=== PATIENT | male | born 1970 | race Caucasian/White ===

== ENCOUNTER 2019-05-23 02:05 | Inpatient (IN) | payer OTHER ==
[2019-05-23] MEDS ORDERED: ALBUTEROL SO4 2.5/IPRATROPIUM 0.5 INH SOL 3 ML VIAL.NEB. NEB ONE ×5 (02:09→19:00)
[2019-05-23] MEDS ORDERED: PROPOFOL 1,000,000 MCG/100 ML VIAL ONE ×2 (02:54→22:20)
[2019-05-23] MEDS: ALBUTEROL SO4 2.5/IPRATROPIUM 0.5 INH SOL 3 ML VIAL.NEB. NEB SCH ×11 (03:00→20:30)
[2019-05-23] MEDS: PROPOFOL 1,000,000 MCG/100 ML VIAL IVPB SCH ×5 (03:00→22:26)
--- NOTE | 2019-05-23 03:03 | PDOC ---
History of Present Illness - General Chief Complaint: Asthma Stated Complaint: ASTHMA Time Seen by Provider: 05/23/19 02:07 History Source: Patient Exam Limitations: No Limitations - History of Present Illness Initial Comments: 05/23/19 02:58 This is a 49-year-old male who comes in complaining of severe respiratory difficulty. Patient walked in with his . Patient's said that he has been having difficulty breathing for the last couple of hours and it got worse so she brought him in. Patient here in the emergency room was unable to speak in full sentences and very diaphoretic. Patient does have a history of asthma and took his inhaler prior to leaving the house. Allergies: as per nursing notes Past Medical History: none Social history: Lives with family. No smoking. No alcohol. No illicit drugs. Surgical history: None General: No fevers or chills, no weakness, no weight loss HEENT: No change in vision. No sore throat,. No ear pain CardioVascular: no chest discomfort. No shortness of breath Respiratory: Difficulty breathing Gastrointestinal: no nausea, vomiting, diarrhea or constipation, No rectal bleeding Genitourinary: No dysuria, hematuria, or frequency Musculoskeletal: No joint or muscle pain or swelling Neurologic: No headache, vertigo, dizziness or loss of consciousness Psychiatric: nor depression Skin: No rashes or easy bruising Endocrine: no increased thirst or abnormal weight change Allergic: no skin or latex allergy All other systems reviewed and normal Exam: General: Well-nourished well-developed individual, severe respiratory distress HEENT: Throat: Normal, tonsils normal, no erythema or exudate Neck: Supple, no meningeal signs, no lymphadenopathy Eyes::Pupils equal reactive and round, extraocular motion intact Chest: Nontender to palpation Cardiac: S1-S2 normal, regular rate and rhythm, no murmurs rubs or gallops Respiratory: Marked decreased breath sounds bilateral with very poor air entry Abdomen: Soft, nondistended, normal bowel sounds, there is no tenderness on palpation diffusely Extremities: Warm, dry, no cyanosis, clubbing, or edema Skin: No rashes Neuro: Alert and oriented x3, CN II - XII intact, nonfocal exam with normal strength, normal sensation, normal reflexes, normal gait, Psych: Normal mood and affect Assessment and plan: This is a 49-year-old male with severe respiratory distress impending respiratory failure who arrived via private vehicle to in the emergency room. On arrival patient's O2 sat was in the 40s patient put on 100% nonrebreather and DuoNeb started however patient was lethargic and in severe enough respiratory distress that the decision to intubate him was made. Patient was given a gram of mag sulfate and an additional intubation without any medication was attempted however it was difficult to pass the tube even though patient was fairly cooperative. The initial tube was removed as it was uncertain that it was in the airway. Patient was reintubated with ketamine adjunct and tube was passed successfully into the airway with positive end- tidal CO2 and capnometry. Patient maintained a sat of 98 - 99% post intubation on the vent. Once patient was intubated duo nebs were started and patient remained with O2 sats in the high 90s. Patient will be transferred to [facility] ICU for further management Past History - Past Medical History Allergies/Adverse Reactions: Allergies Allergy/AdvReac Type Severity Reaction Status Date / Time No Known Allergies Allergy Verified 07/16/11 12:34 Home Medications: Ambulatory Orders Alprazolam [Xanax] 0 mg PO PRN PRN 03/28/13 Cetirizine HCl [Zyrtec -] 10 mg PO PRN PRN 03/28/13 Naproxen [Naprosyn] 500 mg PO BID PRN #20 tablet 03/28/13 Simvastatin [Zocor -] 0 mg PO HS 03/28/13 Albuterol Sulfate [Proair Hfa] 8.5 gm IH PRN PRN 05/23/19 Duloxetine HCl [Cymbalta -] 60 mg PO DAILY 05/23/19 Fluticasone/Salmeterol [Advair 250-50 Diskus] 1 each IH BID 05/23/19 Montelukast Na [Singulair -] 10 mg PO HS 05/23/19 Simvastatin 40 mg PO DAILY 05/23/19 Hypercholesterolemia: Yes - Surgical History Abdominal Surgery: Yes (AP) - Psycho Social/Smoking Cessation Hx Smoking Status: No Smoking History: Unknown if ever smoked Number of Cigarettes Smoked Daily: 0 Information on smoking cessation initiated: No *Physical Exam - Vital Signs Last Vital Signs Temp Pulse Resp BP Pulse Ox 107 H 24 H 182/105 H 42 L 05/23/19 02:06 05/23/19 02:06 05/23/19 02:06 05/23/19 02:06 ED Treatment Course - LABORATORY CBC & Chemistry Diagram: 05/23/19 02:15 05/23/19 02:15 Medical Decision Making - Critical Care Time Total Critical Care Time (minutes): 90 Critical Care Statement: The care of this patient involved high complexity decision making to prevent further life threatening deterioration of the patient 's condition and/or to evaluate & treat vital organ system(s) failure or risk of failure. Discharge - Discharge Information Problems reviewed: Yes Clinical Impression/Diagnosis: Respiratory failure Condition: Critical - Admission Yes - Follow up/Referral - Patient Discharge Instructions - Post Discharge Activity
[2019-05-23] MEDS ORDERED: KETAMINE HCL 200 MG/20 ML VIAL IVPUSH ONE (03:20)
[2019-05-23] MEDS ORDERED: methylPREDNISolone NA SUCC 125 MG/2 ML VIAL IVPUSH ONE ×2 (03:26→16:19)
[2019-05-23 03:49] LABS: BASO % 0.4 % (0-2.0); EOS % 3.8 % (0-4.5); HEMATOCRIT 45.6 % (35.4-49); HEMOGLOBIN 14.6 GM/dL (11.7-16.9); LYMPH % 19.1 % (8-40); MCH 30.5 pg (25.7-33.7); MCHC 32.1 g/dl (32.0-35.9); MEAN CELL VOLUME 95.2 fl (80-96); MEAN PLT VOLUME 8.2 fl (7.5-11.1); MONO % 9.9 % (3.8-10.2); NEUT % 66.8 % (42.8-82.8); PLATELET COUNT 488 K/MM3 (134-434); RBC 4.79 M/mm3 (4.00-5.60); RDW 13.8 % (11.9-15.9); WHITE BLOOD COUNT 23.6 K/mm3 (4.0-10.0)
[2019-05-23] MEDS ORDERED: MIDAZOLAM HCL 2 MG/2 ML SINGLE DOSE VIAL ONE ×2 (04:05→09:21)
[2019-05-23] MEDS ORDERED: MIDAZOLAM HCL 2 MG/2 ML SINGLE DOSE VIAL IVPUSH ONE ×2 (04:10→10:27)
[2019-05-23] MEDS ORDERED: MAGNESIUM SULF 50% (8.12 MEQ/2 ML-1 GM VIAL) IVPB ONE (04:10)
[2019-05-23 04:23] LABS: ALBUMIN 4.5 g/dl (3.4-5.0); ALK PHOS 85 U/L (45-117); ANION GAP 5 MMOL/L (8-16); BILIRUBIN,TOTAL 0.6 mg/dL (0.2-1); BLOOD UREA NITROGEN 14.5 mg/dL (7-18); CALCIUM 8.8 mg/dL (8.5-10.1); CHLORIDE 106 mmol/L (98-107); CO2 29 mmol/L (21-32); CREATININE 1.1 mg/dL (0.55-1.3); GLUCOSE,RANDOM 161 mg/dL (74-106); POTASSIUM 4.4 mmol/L (3.5-5.1); SGOT/AST 25 U/L (15-37); SGPT/ALT 34 U/L (13-61); SODIUM 140 mmol/L (136-145); TOT PROT 7.4 g/dl (6.4-8.2)
[2019-05-23] MEDS ORDERED: PIPERACILLIN/TAZOB 3.375 GM 3.375 GM in DEXTROSE 5%-WATER - 50 ML IVPB SCH ×2 (05:00→05:30)
[2019-05-23] MEDS ORDERED: FENTANYL INJECTION 500 MCG in DEXTROSE 5%-WATER - 90 ML IVPB SCH (05:00)
[2019-05-23 05:17] LABS: CARBOXYHEMOGLOBIN < 0.5 % (0-2)
[2019-05-23 05:18] LABS: ARTERIAL BLOOD GAS BASE EXCESS -6.4 meq/l (-2-2); ARTERIAL BLOOD GAS PO2 482 mmHg (80-100)
[2019-05-23 05:19] LABS: ALLENS TEST POSITIVE
[2019-05-23] MEDS ORDERED: fentaNYL CITRATE 250 MCG/5 ML VIAL ONE (05:22)
--- NOTE | 2019-05-23 05:26 | CONSULT ---
Consultation: REQUESTING PROVIDER: Dr. Strickland CONSULT REQUEST: We have been asked to medically evaluate this patient for Acute Hypoxic Respiratory Failure. HISTORY OF PRESENT ILLNESS: Pt. is a 49 y.o M w/ PMHx. of Asthma (on Advair, Proair, and Singulair at home), HLD and Anxiety presented for shortness of breath that was worsening over the last few hours prior to [place] ER arrival. History provided by chart review and , Garima ([phone]), at bedside in the ICU as Pt. arrived intubated and sedated. Pt. had been having dyspnea at rest at home around 10 pm and took his home Ventolin inhaler to minimal effect. Pt. went to sleep but awoke his around 1 am because of persistent dyspnea and attempted to use his home nebulizer which did not improve his symptoms and went (walked in) to [place] ER at the insistence of his . At [place] Pt. arrived saturating to 42% and decision to intubate was made after failed trial of non-rebreather and duonebs. Pt. was given Solumedrol 125mg. Pt. failed first awake intubation attempt (unclear if tube was in the airway? difficult airway?), which was followed by successful second attempt after administration of Ketamine. ABG was not performed. Pt. was then transferred to ICU prior to having labs uploaded and prior to uploading of CXR, as ER MD stated labs were not able to be read at [place]. Pt. arrived tachycardic and tachypneic on mechanical ventilation saturating at 99%. OG tube and Lopes was placed on arrival to ER as Pt. vomited on arrival. Per discussion with , Pt. has never been intubated in the past. Pt. has remote social smoking history in the past but does not smoked cigarettes currently. Pt. smokes Marijuana Daily (unable to quantify but states Pt. did smoke today). Pt. last consumed cocaine a few weeks prior at a concert. 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 Per Pt. also had an URI a couple weeks ago associated with fever and chills but denies taking any antibiotics for the infection or recently. Per Pt. was not having any symptoms of fever, chills , nausea, vomiting, diarrhea, constipation, chest pain, sore throat or any other concerning symptoms prior to onset of shortness of breath. Pt. is in between PCPs as his former PCP, Dr. Granados recently switched practices. Pt. also has not followed up with a [employer] recently. Pt. has not required increased usage of his Ventolin inhaler or Nebulizer over the last 6 months but per she is unable to say how frequently Pt. uses his Ventolin inhaler. REVIEW OF SYSTEMS: Unable to obtain PHYSICAL EXAMINATION Vital Signs - 24 hr 05/23/19 05/23/19 05/23/19 02:06 02:30 02:50 Pulse Rate 107 H Pulse Rate [ 64 98 H Apical] Respiratory 24 H Rate Blood Pressure 182/105 H Blood Pressure 215/127 H 174/112 H [Right Arm] O2 Sat by Pulse 42 L 96 98 Oximetry (%) 05/23/19 05/23/19 05/23/19 03:00 03:15 03:23 Pulse Rate 108 H Pulse Rate [ 106 H 109 H Apical] Respiratory 24 H 21 H 20 Rate Blood Pressure Blood Pressure 139/88 153/93 [Right Arm] O2 Sat by Pulse 98 93 L 95 Oximetry (%) 05/23/19 05/23/19 05/23/19 03:30 03:40 03:50 Pulse Rate Pulse Rate [ 105 H 106 H 108 H Apical] Respiratory 27 H 18 30 H Rate Blood Pressure Blood Pressure 127/81 116/75 123/75 [Right Arm] O2 Sat by Pulse 100 100 100 Oximetry (%) 05/23/19 04:48 Pulse Rate Pulse Rate [ Apical] Respiratory 32 H Rate Blood Pressure Blood Pressure [Right Arm] O2 Sat by Pulse Oximetry (%) GENERAL: Sedated in respiratory distress HEAD: Normal with no signs of trauma. EYES: Pupils equal, round and reactive to light, extraocular movements intact, sclera anicteric, conjunctiva clear. EARS, NOSE, THROAT: Ears normal, nares patent, oropharynx clear without exudates. Moist mucous membranes. LUNGS: Decreased breath sounds on mechanical ventilation, tachypneic HEART: Tachypneic, regular rhythm, normal S1 and S2 without murmur ABDOMEN: Soft, not distended, normoactive bowel sounds, UPPER EXTREMITIES: 2+ radial pulses, warm, well-perfused. No cyanosis. No clubbing. Cap refill <2 seconds. No peripheral edema. LOWER EXTREMITIES: 2+ dorsal pedal pulses, warm, well-perfused. No calf tenderness. No peripheral edema. NEUROLOGICAL: Sedated PSYCHIATRIC: Sedated SKIN: Warm, diaphoretic, normal turgor Laboratory Results - last 24 hr 05/23/19 05/23/19 05/23/19 02:15 02:15 02:15 WBC 23.6 H RBC 4.79 Hgb 14.6 Hct 45.6 MCV 95.2 MCH 30.5 MCHC 32.1 RDW 13.8 Plt Count 488 H MPV 8.2 Absolute Neuts (auto) 15.7 H Neutrophils % 66.8 Lymphocytes % 19.1 Monocytes % 9.9 Eosinophils % 3.8 Basophils % 0.4 Nucleated RBC % 0 Sodium 140 Potassium 4.4 Chloride 106 Carbon Dioxide 29 Anion Gap 5 L BUN 14.5 Creatinine 1.1 Est GFR (CKD-EPI)AfAm 90.24 Est GFR (CKD-EPI)NonAf 77.86 Random Glucose 161 H Lactic Acid 1.8 Calcium 8.8 Total Bilirubin 0.6 AST 25 ALT 34 Alkaline Phosphatase 85 Creatine Kinase 208 Creatine Kinase Index 1.9 CK-MB (CK-2) 4.1 H Troponin I < 0.02 Total Protein 7.4 Albumin 4.5 Active Medications Home Medications Medication Instructions Recorded Alprazolam [Xanax] 0 mg PO PRN PRN 03/28/13 Cetirizine HCl [Zyrtec -] 10 mg PO PRN PRN 03/28/13 Naproxen [Naprosyn] 500 mg PO BID PRN #20 tablet 03/28/13 Simvastatin [Zocor -] 0 mg PO HS 03/28/13 Albuterol Sulfate [Proair Hfa] 8.5 gm IH PRN PRN 05/23/19 Duloxetine HCl [Cymbalta -] 60 mg PO DAILY 05/23/19 Fluticasone/Salmeterol [Advair 1 each IH BID 05/23/19 250-50 Diskus] Montelukast Na [Singulair -] 10 mg PO HS 05/23/19 Simvastatin 40 mg PO DAILY 05/23/19 ASSESSMENT/PLAN: Pt. is a 49 y.o M w/ PMHx. of Asthma (on Advair, Proair, and Singulair at home) , HLD and Anxiety presented for shortness of breath that was worsening over the last few hours prior to [place] ER arrival. History provided by chart review and , Garima ([phone]), at bedside in the ICU as Pt. arrived intubated and sedated. #Pulmonology ABG on arrival is pH: 7.11, pCO2: 85 on arrival, f/u Rpt. ABG received Solumedrol 125mg @ [place] Started Solumedrol 40mg Q8H started fentanyl gtt started versed gtt c/w propofol gtt- maximum dose Pt. has Hx. of chronic Marijuana use, studies have shown that these Pt.s require as much as 400% more propofol and Pt.s who do not use Marijuana Duonebs RQID standing Pt. evaluated by anaethesiology with glidoscope to confirm placement of ET tube , given rocuroroium, visualized "tight airways." On suctioning "large" clot was removed from ET tube, respirations improved after c/w Zosyn for suspected aspiration PNA f/u BCx. f/u Influenza and RSV swab f/u Rpt. CXR #Neurology sedated on Propofol gtt At baseline Pt. has no focal deficits and has full ADLs and IADLs #Cardiology denies any PMHx. or Family Hx. of any chronic medical conditions will continue cardiac monitoring while admitted to ICU #Gastroenterology Emesis prior to initial OG Tube placement OG Tube replaced after anesthisology assessment will continue If Pt. requires prolonged intubation and prolonged steroids consider starting Protonix after 48 hours #FEN no IVF, will re-evaluate in the AM monitor electrolytes replete as needed, received 1gm MgSulfate @ [place] NPO #DVT Ppx Hep SQ TID Dispo: We will continue to follow the patient. Thank you for this consultative opportunity. Visit type - Emergency Visit Emergency Visit: Yes ED Registration Date: 05/23/19 Care time: The patient presented to the Emergency Department on the above date and was hospitalized for further evaluation of their emergent condition. - New Patient This patient is new to me today: Yes Date on this admission: 05/25/19 - Critical Care Critical Care patient: Yes Total Critical Care Time (in minutes): 55 Critical Care Statement: The care of this patient involved high complexity decision making to prevent further life threatening deterioration of the patient 's condition and/or to evaluate & treat vital organ system(s) failure or risk of failure. ATTENDING PHYSICIAN STATEMENT I saw and evaluated the patient. I reviewed the resident's note and discussed the case with the resident. I agree with the resident's findings and plan as documented. SUBJECTIVE: OBJECTIVE: ASSESSMENT AND PLAN:
[2019-05-23 05:38] LABS: ARTERIAL BLOOD GAS PCO2 85.8 mmHg (35-45); ARTERIAL BLOOD GAS pH 7.11 (7.35-7.45)
[2019-05-23] MEDS ORDERED: RAPID SEQUENCE INTUBATION KIT NR ONE (05:45)
[2019-05-23] MEDS ORDERED: ALBUTEROL SO4 0.042% IH SOL 1.25 MG/3 ML VIAL.NEB NEB PRN (06:03)
--- NOTE | 2019-05-23 06:05 | PN ---
Progress Note (short form) - Note Progress Note: Called to evaluate ICU pt with suspected dislodged ETT. Pt has a history of asthma, s/p intubation at [facility]. CO2 capnometer shows steady tracing, at 32; pt is sedated but not given muscle relaxant., and is exhibiting agonal respirations over the ventilator. Glidescope was used to visualize ETT- ETT in correct position, no adjustment was needed. Muscle relaxant given; also advised resident to write for nebulized albuterol, as breath sounds are distant and capnogram waveform suggests severe asthma exacerbation.
--- NOTE | 2019-05-23 07:41 | HP ---
CHIEF COMPLAINT: Shortness of breath PCP: HISTORY OF PRESENT ILLNESS: Information obtained from previous medical records as patient currently intubated and sedated. Pt is a 49 y/o M with a significant past medical history of HLD, Anxiety, and Asthma (on Advair, Proair, and Singulair at home) who initially presented to [facility] due to shortness of breath. Pt reportedly was sleeping when he abruptly became short of breath and was told to go to the ER at the behest of his . In the ER, pt was noted to desaturate on room air to 42%; pt was subsequently placed on a nonrebreather and administered duonebs. This was unsuccessful and pt was subsequently intubated in the ER. Pt was transferred to our [facility] ICU for continued care. Pt has never been intubated in the past. Per medical records, pt is an everyday marijuana smoker; unclear if vapes. Pt reportedly had a URI-like illness a few weeks ago but did not receive any antibiotics. PMH as above SocialHx- Everyday marijuana smoker, Cocaine use ER course was notable for: (1) Administered Ketamine and intubated (2) Pt. was given Solumedrol 125mg Allergies No Known Allergies Allergy (Verified 07/16/11 12:34) HOME MEDICATIONS: Home Medications Medication Instructions Recorded Alprazolam [Xanax] 0 mg PO PRN PRN 03/28/13 Cetirizine HCl [Zyrtec -] 10 mg PO PRN PRN 03/28/13 Naproxen [Naprosyn] 500 mg PO BID PRN #20 tablet 03/28/13 Simvastatin [Zocor -] 0 mg PO HS 03/28/13 Albuterol Sulfate [Proair Hfa] 8.5 gm IH PRN PRN 05/23/19 Duloxetine HCl [Cymbalta -] 60 mg PO DAILY 05/23/19 Fluticasone/Salmeterol [Advair 1 each IH BID 05/23/19 250-50 Diskus] Montelukast Na [Singulair -] 10 mg PO HS 05/23/19 Simvastatin 40 mg PO DAILY 05/23/19 REVIEW OF SYSTEMS Unable to obtain as pt intubated and sedated PHYSICAL EXAMINATION Vital Signs - 24 hr 05/23/19 05/23/19 05/23/19 02:06 02:30 02:50 Pulse Rate 107 H Pulse Rate [ 64 98 H Apical] Respiratory 24 H Rate Blood Pressure 182/105 H Blood Pressure 215/127 H 174/112 H [Right Arm] O2 Sat by Pulse 42 L 96 98 Oximetry (%) 05/23/19 05/23/19 05/23/19 03:00 03:15 03:23 Pulse Rate 108 H Pulse Rate [ 106 H 109 H Apical] Respiratory 24 H 21 H 20 Rate Blood Pressure Blood Pressure 139/88 153/93 [Right Arm] O2 Sat by Pulse 98 93 L 95 Oximetry (%) 05/23/19 05/23/19 05/23/19 03:30 03:40 03:50 Pulse Rate Pulse Rate [ 105 H 106 H 108 H Apical] Respiratory 27 H 18 30 H Rate Blood Pressure Blood Pressure 127/81 116/75 123/75 [Right Arm] O2 Sat by Pulse 100 100 100 Oximetry (%) 05/23/19 05/23/19 04:48 06:44 Pulse Rate Pulse Rate [ Apical] Respiratory 32 H 18 Rate Blood Pressure Blood Pressure [Right Arm] O2 Sat by Pulse Oximetry (%) GENERAL: Intubated and sedated HEAD: AT/NC. EYES: Sclera Clear, pupils reactive EARS, NOSE, THROAT: ET tube in place. OG tube as well. NECK: Normal range of motion, supple without lymphadenopathy, JVD, or masses. LUNGS: Decreased breath sounds throughout. Poor air entry. Labored breathing HEART: RRR S1S2 ABDOMEN: Soft, NDNT UPPER EXTREMITIES: 2+ pulses, warm, well-perfused. No cyanosis. No clubbing. No peripheral edema. LOWER EXTREMITIES: No CCE NEUROLOGICAL: Sedated SKIN: Moist. Laboratory Results - last 24 hr 05/23/19 05/23/19 05/23/19 02:15 02:15 02:15 WBC 23.6 H RBC 4.79 Hgb 14.6 Hct 45.6 MCV 95.2 MCH 30.5 MCHC 32.1 RDW 13.8 Plt Count 488 H MPV 8.2 Absolute Neuts (auto) 15.7 H Neutrophils % 66.8 Lymphocytes % 19.1 Monocytes % 9.9 Eosinophils % 3.8 Basophils % 0.4 Nucleated RBC % 0 Anticoagulation Therapy Puncture Site ABG pH ABG pCO2 at Pt Temp ABG pO2 at Pt Temp ABG HCO3 ABG O2 Sat (Measured) ABG O2 Content ABG Base Excess Lebron Test Carboxyhemoglobin Methemoglobin O2 Delivery Device Oxygen Flow Rate Vent Mode Vent Rate Mechanical Rate PEEP Pressure Support Vent Sodium 140 Potassium 4.4 Chloride 106 Carbon Dioxide 29 Anion Gap 5 L BUN 14.5 Creatinine 1.1 Est GFR (CKD-EPI)AfAm 90.24 Est GFR (CKD-EPI)NonAf 77.86 POC Glucometer Random Glucose 161 H Lactic Acid 1.8 Calcium 8.8 Total Bilirubin 0.6 AST 25 ALT 34 Alkaline Phosphatase 85 Creatine Kinase 208 Creatine Kinase Index 1.9 CK-MB (CK-2) 4.1 H Troponin I < 0.02 Total Protein 7.4 Albumin 4.5 05/23/19 05/23/19 05/23/19 04:11 04:37 04:45 WBC RBC Hgb Hct MCV MCH MCHC RDW Plt Count MPV Absolute Neuts (auto) Neutrophils % Lymphocytes % Monocytes % Eosinophils % Basophils % Nucleated RBC % Anticoagulation Therapy No Result Required. Puncture Site Right radial ABG pH 7.11 L* ABG pCO2 at Pt Temp 85.8 H* ABG pO2 at Pt Temp 482 H ABG HCO3 25.7 ABG O2 Sat (Measured) No Result Required. ABG O2 Content No Result Required. ABG Base Excess -6.4 L Lebron Test Positive Carboxyhemoglobin < 0.5 Methemoglobin 1.3 O2 Delivery Device Vent Oxygen Flow Rate 100% Vent Mode No Result Required. Vent Rate 18 Mechanical Rate No Result Required. PEEP 5.0 Pressure Support Vent 500 Sodium Potassium Chloride Carbon Dioxide Anion Gap BUN Creatinine Est GFR (CKD-EPI)AfAm Est GFR (CKD-EPI)NonAf POC Glucometer 194 Random Glucose Lactic Acid Calcium Total Bilirubin AST ALT Alkaline Phosphatase Creatine Kinase Creatine Kinase Index CK-MB (CK-2) Troponin I Total Protein Albumin ASSESSMENT/PLAN: Pt is a 49 y/o M with a significant past medical history of HLD, Anxiety, and Asthma who initially presented to [facility] due to shortness of breath. # Acute Hypoxic Hypercapneic Respiratory Failure -Pt intubated in [place] ER. -Currently on Ventilator. Sedated with propofol and fentanyl. -AB.11, pCO2: 85 on arrival, repeat ABG no significant change -Tidal Volume increased to 600 -Fio2 50%. Do not want to increase too much as previous o2 level 482-want to avoid oxygen toxicity. -will increase Solu-Medrol to 60Q6 from 40 Q8. -duoneb 1 amp q4H Kimberlyn. -Dr Macdonald on board. Appreciate recs. -Zosyn for suspected aspiration PNA. Will also placed on Vancomycin empirically as WBC 23k. -f/u BCx. -f/u Influenza and RSV swab -f/u Rpt. CXR #FEN -No standing fluids -Monitor Electrolytes -NPO #DVT ppx -HEPSQTID #Dispo: -ICU Visit type - Emergency Visit Emergency Visit: Yes ED Registration Date: 05/23/19 Care time: The patient presented to the Emergency Department on the above date and was hospitalized for further evaluation of their emergent condition. - New Patient This patient is new to me today: Yes Date on this admission: 05/23/19 - Critical Care Critical Care patient: Yes Total Critical Care Time (in minutes): 35 Critical Care Statement: The care of this patient involved high complexity decision making to prevent further life threatening deterioration of the patient 's condition and/or to evaluate & treat vital organ system(s) failure or risk of failure. ATTENDING PHYSICIAN STATEMENT I saw and evaluated the patient. I reviewed the resident's note and discussed the case with the resident. I agree with the resident's findings and plan as documented. SUBJECTIVE: OBJECTIVE: ASSESSMENT AND PLAN:
--- NOTE | 2019-05-23 07:46 | PN ---
Teaching Attending Note Name of Resident: Elia Mei ATTENDING PHYSICIAN STATEMENT I saw and evaluated the patient. I reviewed the resident's note and discussed the case with the resident. I agree with the resident's findings and plan as documented. Patient was seen by the night resident overnight in ICU Patient came under my service at 7:30am SUBJECTIVE: Patient is intubated in ICU. Hx is taken from the chart. Patient is a 49 yo male with PMHx of Asthma (on Advair, Proair, and Singulair at home), HLD and Anxiety presented for shortness of breath with worsening symptoms over the last few hours prior to [facility] arrival where patient was intubated and was send to the [facility] [place]. History is taken from chart , and the resident who spoke with his , Garima ([phone]). Pt. arrived intubated and sedated. Pt. had been having dyspnea at rest at home around 10 pm and took his home Ventolin inhaler to minimal effect. Pt. went to sleep but awoke his around 1 am because of persistent dyspnea and attempted to use his home nebulizer which did not improve his symptoms and went (walked in) to [facility] at the insistence of his . At [facility] Pt. arrived saturating to 42% and decision to intubate was made after failed trial of non-rebreather and duonebs. Pt. was given Solumedrol 125mg. As per hx patient vomited on arrival. Pt. has never been intubated in the past. Pt. has remote social smoking history in the past, currently. Pt. smokes Marijuana Daily (unable to quantify but states Pt. did smoke today). Pt. last consumed cocaine a few weeks prior at a concert. 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 Per Pt. also had an URI a couple weeks ago associated with fever and chills but denies taking any antibiotics. OBJECTIVE: Vital Signs Temperature Pulse Rate 108 H 05/23/19 03:50 Respiratory Rate 18 05/23/19 06:44 Blood Pressure 123/75 05/23/19 03:50 O2 Sat by Pulse Oximetry (%) 100 05/23/19 03:50 GENERAL: The patient is intubated , sedated in moderate distress. HEAD: Normal with no signs of trauma. EYES: sclera anicteric, conjunctiva clear. reactive ENT: Ears normal, positive for E-Tube NECK: Trachea midline. intubated LUNGS:decreased air entery bl ,with labored breathing, no wheezes, no crackles. HEART: tachy, S1, S2 positive, no murmur, rub or gallop. ABDOMEN: Soft, nontender, nondistended, normoactive bowel sounds, no guarding, no rebound, no hepatosplenomegaly, no masses. EXTREMITIES: 2+ pulses, warm, well-perfused, no edema. NEUROLOGICAL: Cranial nerves II through XII grossly intact. PSYCH: unable to access, intubated sedated. SKIN: Warm, dry, normal turgor, no rashes or lesions noted CBCD WBC 23.6 K/mm3 (4.0-10.0) H 05/23/19 02:15 RBC 4.79 M/mm3 (4.00-5.60) 05/23/19 02:15 Hgb 14.6 GM/dL (11.7-16.9) 05/23/19 02:15 Hct 45.6 % (35.4-49) 05/23/19 02:15 MCV 95.2 fl (80-96) 05/23/19 02:15 MCHC 32.1 g/dl (32.0-35.9) 05/23/19 02:15 RDW 13.8 % (11.9-15.9) 05/23/19 02:15 Plt Count 488 K/MM3 (134-434) H 05/23/19 02:15 MPV 8.2 fl (7.5-11.1) 05/23/19 02:15 CMP Sodium 140 mmol/L (136-145) 05/23/19 02:15 Potassium 4.4 mmol/L (3.5-5.1) 05/23/19 02:15 Chloride 106 mmol/L (98-107) 05/23/19 02:15 Carbon Dioxide 29 mmol/L (21-32) 05/23/19 02:15 Anion Gap 5 MMOL/L (8-16) L 05/23/19 02:15 BUN 14.5 mg/dL (7-18) 05/23/19 02:15 Creatinine 1.1 mg/dL (0.55-1.3) 05/23/19 02:15 Random Glucose 161 mg/dL (74-106) H 05/23/19 02:15 Calcium 8.8 mg/dL (8.5-10.1) 05/23/19 02:15 Total Bilirubin 0.6 mg/dL (0.2-1) 05/23/19 02:15 AST 25 U/L (15-37) 05/23/19 02:15 ALT 34 U/L (13-61) 05/23/19 02:15 Alkaline Phosphatase 85 U/L (45-117) 05/23/19 02:15 Total Protein 7.4 g/dl (6.4-8.2) 05/23/19 02:15 Albumin 4.5 g/dl (3.4-5.0) 05/23/19 02:15 CARDIAC ENZYMES Creatine Kinase 208 U/L (26-308) 05/23/19 02:15 Troponin I < 0.02 ng/ml (0.00-0.05) 05/23/19 02:15 Laboratory Tests 05/23/19 05/23/19 05/23/19 04:45 05:00 07:48 ABG pH 7.11 L* 7.14 L* ABG pCO2 at Pt Temp 85.8 H* 78.4 H* ABG pO2 at Pt Temp 482 H 79 L ABG HCO3 25.7 25.7 Opiates Screen Negative Methadone Screen Negative Barbiturate Screen Negative Phencyclidine Screen Negative Ur Amphetamines Screen Negative MDMA (Ecstasy) Screen Negative Benzodiazepines Screen Positive A* Cocaine Screen Positive A* U Marijuana (THC) Screen Positive A* CXR: nodular density/granuloma in the peripheral left lung field. mediastinum is not widened, An ET-tube is present with its tip at the level of clavicular heads, there is no sign of infiltrate or failure. The bones and soft tissues intact. ASSESSMENT AND PLAN: Patient is a 49 yo male with PMHx of Asthma , HLD and Anxiety, polysubstance abuse presented to [facility] for having severe shortness of breath s/p intubation due to having respiratory failure, patient was transferred to [facility] overnight for further care and evaluation. # Acute respiratory failure s/p intubation: Neb treatments, solu medrol 60mg iv q8, discussed with regarding the vent setting, will repeat ABG in 30mins. for management per ICU team. # Acute asthma exacerbation : intubated, sedated, nebs, solumedrol IV. #Polysubstance dependency (Marijuana and cocaine) : detox consult # Leukocytosis possible aspiration Pneumonia: Blue cx, zosyn , antigen for legienella and strep. ID consult Dr. miller DVt px: heaprin Critical care time 35min
[2019-05-23 08:06] LABS: METHADONE, UR NEGATIVE ng/ml (CUTOFF=300); OPIATES, URI NEGATIVE ng/ml (CUTOFF=300); PHENCYCLIDINE,URINE NEGATIVE ng/ml (CUTOFF=25); URINE AMPHETAMINES NEGATIVE ng/ml (CUTOFF=500); URINE BARBITURATES NEGATIVE ng/ml (CUTOFF=200)
[2019-05-23] MEDS ORDERED: ALBUTEROL SO4 2.5/IPRATROPIUM 0.5 INH SOL 3 ML VIAL.NEB. NEB PRN (08:14)
[2019-05-23 08:15] LABS: ARTERIAL BLD GAS O2 SATURATION 90.3 % (95-98); ARTERIAL BLOOD GAS BASE EXCESS -5.4 meq/l (-2-2)
[2019-05-23 08:16] LABS: ARTERIAL BLOOD GAS PO2 79 mmHg (80-100)
[2019-05-23 08:17] LABS: ALLENS TEST POSITIVE; CARBOXYHEMOGLOBIN < 0.5 % (0-2)
[2019-05-23 08:18] LABS: COCAINE, UR POSITIVE ng/ml (CUTOFF=300); URINE BENZODIAZEPINES POSITIVE ng/ml (CUTOFF=200)
[2019-05-23 08:19] LABS: ARTERIAL BLOOD GAS pH 7.14 (7.35-7.45)
[2019-05-23 08:20] LABS: MAGNESIUM 2.6 mg/dL (1.8-2.4); PHOSPHOROUS 5.8 mg/dL (2.5-4.9)
[2019-05-23 08:20] LABS: ARTERIAL BLOOD GAS PCO2 78.4 mmHg (35-45)
--- NOTE | 2019-05-23 08:25 | PN ---
Physical Exam: SUBJECTIVE: Patient seen and examined by the bedside, intubated and sedated. OBJECTIVE: Vital Signs Period Temp Pulse Resp BP Sys/Christiansen Pulse Ox Last 24 Hr 64-109 18-32 116-233/75-153 42-100 GENERAL: Intubated and sedated HEAD: Normal with no signs of trauma. EYES: SOFI EARS, NOSE, THROAT: Ears normal, nares patent, oropharynx clear without exudates. Moist mucous membranes. LUNGS: Decreased breath sounds B/L HEART: Tachypneic, regular rhythm, normal S1 and S2 without murmur ABDOMEN: Soft, not distended, normoactive bowel sounds, UPPER EXTREMITIES: 2+ radial pulses, warm, well-perfused. No cyanosis. No clubbing. Cap refill <2 seconds. No peripheral edema. LOWER EXTREMITIES: 2+ dorsal pedal pulses, warm, well-perfused. No calf tenderness. No peripheral edema. NEUROLOGICAL: Sedated PSYCHIATRIC: Sedated SKIN: Warm, diaphoretic, normal turgor CBC, BMP 05/23/19 02:15 05/23/19 02:15 Current Medications Albuterol Sulfate (Ventolin 0.042trength) -) 1 amp NEB RQID PRN PRN Reason: Dyspnea Albuterol/Ipratropium (Duoneb -) 1 amp NEB RQ4H [facility] Chlorhexidine Gluconate (Hibiclens For Decolonization -) 1 applic TP HS [facility] Heparin Sodium (Porcine) (Heparin -) 5,000 unit SQ TID [facility] Propofol (Diprivan -) 1,000,000 mcg in 100 mls @ 8.369 mls/hr IVPB TITR [facility]; Protocol Last Admin: 05/23/19 08:37 Dose: 75 mcg/kg/min, 41.844 mls/hr Midazolam HCl 100 mg/ Sodium (Chloride) 100 mls @ 1 mls/hr IVPB TITR [facility]; Protocol Azithromycin 500 mg/ Dextrose 250 mls @ 250 mls/hr IVPB DAILY [facility] Ceftriaxone Sodium (Ceftriaxone 2 Gm-D5w Bag) 2 gm in 50 mls @ 100 mls/hr IVPB DAILY [facility]; Protocol Methylprednisolone Sodium Succinate (Solu-Medrol -) 60 mg IVPUSH Q6H-IV [facility] Last Admin: 05/23/19 09:31 Dose: 60 mg Midazolam HCl (Versed -) 4 mg IVPUSH ONCE ONE Stop: 05/23/19 10:28 Midazolam HCl (Versed -) 2 mg IVPUSH RQ4H [facility] Mupirocin (Bactroban Ointment (For Decolonization) -) 1 applic NS BID [facility] Stop: 05/28/19 09:59 ASSESSMENT/PLAN: 49M PMH of Asthma (on Advair, Proair, and Singulair at home), HLD and Anxiety. Presented to [facility] 05/23 with worsening SOB despite Ventolin and Nebulizer. Was found to have O2 42%, received SoluMedrol 125mg and duonebs with no improvement , decision was made to intubate. Intubation was initially unsuccessful, but eventually successful after administration of ketamine. states that he had an URTI a couple weeks ago associated with fever and chills, but more recently has not had any fever, chills or any other symptoms. 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 #Neurology - Sedated on Propofol, Versed (switched from Fentanyl). May require additional Propofol due to Hx. of chronic Marijuana use - AOx3 at baseline with no focal deficits #Pulmonology - ABG this morning: pH 7.14, pCO2 78.4, pO2 79, HCO3 25.7 - Solumedrol 60 mg Q8, was previously on 40mg Q8, received 125mg @ [place] - Duonebs started - Evaluated by anaethesiology with glidoscope to confirm placement of ET tube, given rocuroroium, visualized "tight airways." - On suctioning "large" clot was removed from ET tube, respirations improved after - CXR: Well inflated, density in peripheral left lower lung - LE Duplex: No DVT seen #ID - WBC 23.6, afebrile - Ceftriaxone 2gm, Azythromycin 500mg for suspected pneumonia started 05/23 as per ID, received Zosyn 1x overnight - BCx, Influenza and RSV swab ordered - ID (Dr. Mott) consulted #Cardiology - denies any PMHx. or Family Hx. of any chronic medical conditions - Cardiac monitoring #GI - OGT palced - Emesis 1x prior to initial OG Tube placement #Renal - Lopes placed - UA: Protein 1+ - UTox positive for Marijuana, cocaine, benzos #FEN - Not currently on IVF - Phos 5.8 (H), Mg 2.6 (H) - NPO #Prophylaxis - Hep 5000 SQ TID - Will consider Protonix if prolonged intubation required Visit type - Emergency Visit Emergency Visit: Yes ED Registration Date: 05/23/19 Care time: The patient presented to the Emergency Department on the above date and was hospitalized for further evaluation of their emergent condition. - New Patient This patient is new to me today: Yes Date on this admission: 05/24/19 - Critical Care Critical Care patient: Yes Total Critical Care Time (in minutes): 38 Critical Care Statement: The care of this patient involved high complexity decision making to prevent further life threatening deterioration of the patient 's condition and/or to evaluate & treat vital organ system(s) failure or risk of failure. ATTENDING PHYSICIAN STATEMENT I saw and evaluated the patient. I reviewed the resident's note and discussed the case with the resident. I agree with the resident's findings and plan as documented. SUBJECTIVE: OBJECTIVE: ASSESSMENT AND PLAN:
[2019-05-23] MEDS ORDERED: DEXTROSE 5%-WATER - 50 ML IVPB ONE (09:11)
[2019-05-23] MEDS ORDERED: PIPERACILLIN/TAZOBACTAM 3.375 GM VIAL IVPB ONE (09:11)
[2019-05-23] MEDS: methylPREDNISolone NA SUCC 40 MG/1 ML VIAL IVPUSH SCH ×3 (09:31→21:24)
[2019-05-23 09:36] LABS: URINE APPEARANCE CLEAR; URINE BILIRUBIN NEGATIVE (NEGATIVE); URINE COLOR YELLOW; URINE GLUCOSE (UA) 500 mg/dl (NEGATIVE); URINE KETONE NEGATIVE (NEGATIVE)
[2019-05-23 09:37] LABS: URINE BACTERIA 0.5 /hpf (NEGATIVE); URINE LEUK ESTERASE NEGATIVE (NEGATIVE); URINE NITRITE NEGATIVE (NEGATIVE); URINE PROTEIN 1+ (NEGATIVE); URINE RBC 0.9 /hpf (0-4); URINE UROBILINOGEN 0.2 mg/dL (0.2-1.0); URINE WBC 0.8 /hpf (0-5)
[2019-05-23] MEDS ORDERED: VANCOMYCIN 1 GRAM (PRE-DOCKED) 1,000 MG/250 ML BAG IVPB ONE (10:00)
[2019-05-23] MEDS ORDERED: methylPREDNISolone NA SUCC 40 MG/1 ML VIAL IVPUSH SCH (10:00)
[2019-05-23] MEDS ORDERED: MIDAZOLAM IN 0.9 % SOD.CHLORID 1 MG/1 ML PLAST..BAG ONE (10:54)
--- NOTE | 2019-05-23 10:57 | PN ---
Progress Note (short form) - Note Progress Note: ID CONSULT DICTATED ACUTE RESPIRATORY FAILURE ACUTE EXACERBATION ASTHMA ? PNEUMONIA POLYSUBSTANCE USE AWAIT C/S SPUTUM C/S, LEGIONELLA/PNEUMOCOCCAL AG VIRAL RESP PANEL HIV TEST IF STATUS NOT KNOWN EMPIRIC ZITHROMAX/ CEFTRIAXONE
[2019-05-23] MEDS ORDERED: CEFTRIAXONE 2 GM in DEXTROSE 5%-WATER 100 ML IVPB SCH (11:00)
[2019-05-23] MEDS: MUPIROCIN 2% TOPICAL OINTMENT FOR DECOLONIZATION NS SCH ×2 (11:00→21:30)
[2019-05-23 11:18] LABS: ARTERIAL BLD GAS O2 SATURATION 96.9 % (95-98); ARTERIAL BLOOD GAS BASE EXCESS -4.9 meq/l (-2-2); ARTERIAL BLOOD GAS PO2 198 mmHg (80-100)
[2019-05-23 11:20] LABS: ALLENS TEST POSITIVE
[2019-05-23] MEDS: MIDAZOLAM 100 MG in SODIUM CHLORIDE 100 ML IVPB SCH (11:20)
[2019-05-23 11:21] LABS: ARTERIAL BLOOD GAS pH 7.17 (7.35-7.45)
[2019-05-23 11:22] LABS: ARTERIAL BLOOD GAS PCO2 71.6 mmHg (35-45)
[2019-05-23] MEDS ORDERED: PROPOFOL 2,000,000 MCG/200 ML VIAL ONE (11:30)
[2019-05-23] MEDS: AZITHROMYCIN IVPB 500 MG/250 ML BAG IVPB SCH (11:38)
[2019-05-23 11:57] LABS: ANISOCYTOSIS 0; MACROCYTOSIS 0; PLATELET ESTIMATE INCREASED
[2019-05-23] MEDS ORDERED: MIDAZOLAM HCL 2 MG/2 ML SINGLE DOSE VIAL IVPUSH PRN (12:00)
--- NOTE | 2019-05-23 12:15 | EKG ---
Test Reason : Blood Pressure : / mmHG Vent. Rate : 105 BPM Atrial Rate : 105 BPM P-R Int : 128 ms QRS Dur : 102 ms QT Int : 366 ms P-R-T Axes : 074 -44 111 degrees QTc Int : 483 ms POOR DATA QUALITY, INTERPRETATION MAY BE ADVERSELY AFFECTED SINUS TACHYCARDIA WITH FREQUENT PREMATURE VENTRICULAR COMPLEXES AND FUSION COMPLEXES LEFT AXIS DEVIATION NONSPECIFIC ST ABNORMALITY ABNORMAL ECG NO PREVIOUS ECGS AVAILABLE Confirmed by SAMANTA ROLLE, TERESA ([id number]) on 05/23/2019 12:15:16 PM Referred By: MARIBELL ELLIOTT Confirmed By:TERESA ENGLAND MD
--- NOTE | 2019-05-23 12:18 | PN ---
Teaching Attending Note Name of Resident: Omid Win ATTENDING PHYSICIAN STATEMENT I saw and evaluated the patient. I reviewed the resident's note and discussed the case with the resident. I agree with the resident's findings and plan as documented. SUBJECTIVE: Patient seen and examined in the ICU. Intubated and sedated. Persistent hypercapnia. Being underventilated. Requires increased VT: increased to 700cc. Breath stacking noted so RR reduced. Peak Flow increased to allow for increased I:E ratio. Above changed resulted in I:E change from 1:1.5 to 1:3.5. No pressors. Intake & Output 05/20/19 05/21/19 05/22/19 05/23/19 23:59 23:59 23:59 23:59 Weight 169 lb 1.513 oz Last Vital Signs Temp Pulse Resp BP Pulse Ox 98.4 F 90 16 115/80 93 L 05/23/19 10:30 05/23/19 12:00 05/23/19 12:00 05/23/19 12:00 05/23/19 09:00 Active Medications Albuterol Sulfate (Ventolin 0.042trength) -) 1 amp NEB RQID PRN PRN Reason: Dyspnea Albuterol/Ipratropium (Duoneb -) 1 amp NEB RQ4H [facility] Last Admin: 05/23/19 09:40 Dose: 1 amp Chlorhexidine Gluconate (Hibiclens For Decolonization -) 1 applic TP HS [facility] Heparin Sodium (Porcine) (Heparin -) 5,000 unit SQ TID [facility] Propofol (Diprivan -) 1,000,000 mcg in 100 mls @ 8.369 mls/hr IVPB TITR [facility]; Protocol Last Admin: 05/23/19 11:36 Dose: 75 mcg/kg/min, 41.844 mls/hr Midazolam HCl 100 mg/ Sodium (Chloride) 100 mls @ 1 mls/hr IVPB TITR [facility]; Protocol Last Admin: 05/23/19 11:20 Dose: 1 mg/hr, 1 mls/hr Azithromycin (Zithromax 500mg Ivpb (Pre-Docked)) 500 mg in 250 mls @ 250 mls/ hr IVPB DAILY [facility] Last Admin: 05/23/19 11:38 Dose: 250 mls/hr Ceftriaxone Sodium 2 gm/ (Dextrose) 100 mls @ 200 mls/hr IVPB DAILY [facility]; Protocol Methylprednisolone Sodium Succinate (Solu-Medrol -) 60 mg IVPUSH Q6H-IV [facility] Last Admin: 05/23/19 09:31 Dose: 60 mg Midazolam HCl (Versed -) 2 mg IVPUSH Q4H PRN PRN Reason: FOR SEDATION Mupirocin (Bactroban Ointment (For Decolonization) -) 1 applic NS BID [facility] Stop: 05/28/19 09:59 Last Admin: 05/23/19 11:00 Dose: 1 applic GENERAL: Intubated and sedated HEAD: Normal with no signs of trauma. EYES: Pupils equal, round and reactive to light, extraocular movements intact, sclera anicteric, conjunctiva clear. EARS, NOSE, THROAT: Ears normal, nares patent, oropharynx clear without exudates. Moist mucous membranes. LUNGS: Vented, (+) expiratory wheeze HEART: Tachypneic, regular rhythm, normal S1 and S2 without murmur ABDOMEN: Soft, not distended, normoactive bowel sounds, UPPER EXTREMITIES: 2+ radial pulses, warm, well-perfused. No cyanosis. No clubbing. Cap refill <2 seconds. No peripheral edema. LOWER EXTREMITIES: 2+ dorsal pedal pulses, warm, well-perfused. No calf tenderness. No peripheral edema. NEUROLOGICAL: Sedated PSYCHIATRIC: Sedated SKIN: Warm, normal turgor Laboratory Results - last 24 hr 05/23/19 05/23/19 05/23/19 02:15 02:15 02:15 WBC 23.6 H RBC 4.79 Hgb 14.6 Hct 45.6 MCV 95.2 MCH 30.5 MCHC 32.1 RDW 13.8 Plt Count 488 H MPV 8.2 Absolute Neuts (auto) 15.7 H Neutrophils % 66.8 Lymphocytes % 19.1 Monocytes % 9.9 Eosinophils % 3.8 Basophils % 0.4 Nucleated RBC % 0 Sodium 140 Potassium 4.4 Chloride 106 Carbon Dioxide 29 Anion Gap 5 L BUN 14.5 Creatinine 1.1 Est GFR (CKD-EPI)AfAm 90.24 Est GFR (CKD-EPI)NonAf 77.86 Random Glucose 161 H Lactic Acid 1.8 Calcium 8.8 Total Bilirubin 0.6 AST 25 ALT 34 Alkaline Phosphatase 85 Creatine Kinase 208 Creatine Kinase Index 1.9 CK-MB (CK-2) 4.1 H Troponin I < 0.02 Total Protein 7.4 Albumin 4.5 ASSESSMENT/PLAN: Acute Respiratory Failure due to AE of COPD and possible PNA Polysubstance abuse Apparent history of Asthma (stage not clear but likely at least Mild Persistent given meds) HLD Anxiety VT increased based on ideal body weight Respiratory rate and Peak flow adjusted to increase I:E ratio to avoid breath stacking Full sedation for now ABX per ID BD TX standing and PRN IV Medrol VTE prophylaxis Follow cultures Enteral feeds if not extubated by tomorrow PPI after 48 hours Requires ICU monitoring Dr Macdonald Critical care time spent in reviewing chart, evaluating patient and formulating plan - 36 minutes.
[2019-05-23 13:07] LABS: ARTERIAL BLD GAS O2 SATURATION 97.1 % (95-98); ARTERIAL BLOOD GAS BASE EXCESS -4.9 meq/l (-2-2); ARTERIAL BLOOD GAS PO2 190 mmHg (80-100)
[2019-05-23 13:10] LABS: ALLENS TEST POSITIVE
[2019-05-23 13:12] LABS: ARTERIAL BLOOD GAS PCO2 73.8 mmHg (35-45); ARTERIAL BLOOD GAS pH 7.16 (7.35-7.45)
--- NOTE | 2019-05-23 13:49 | CONS ---
INFECTIOUS DISEASE CONSULTATION DATE OF CONSULTATION: DATE OF DICTATION: 05/23/2019 HISTORY OF PRESENT ILLNESS: The patient is a 49-year-old, asthmatic male evaluated for sepsis. History was obtained from the chart, as he is presently intubated in the intensive care unit. He was admitted from home on May 23, 2019. He had developed acute onset of shortness of breath for approximately 1 hour. He was unable to speak in full sentences and became very diaphoretic. He was taken to the emergency room at [facility] where he required placement on a nonrebreather mask. His course was complicated by respiratory failure requiring intubation. At the present time, he is intubated in the intensive care unit. The patient is sedated on the ventilator. He was noted to have a white blood cell count of 23,000. Cultures were obtained. He was empirically treated with vancomycin and Zosyn. According to the notes, he had had a recent upper respiratory tract infection approximately a week ago. 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 He is non-tobacco smoker; however, according to the chart, he does smoke marijuana on a regular basis and uses cocaine. No reports of intravenous drug use. His HIV status is not known. No recent travel. PAST MEDICAL HISTORY: Positive for asthma. No recent hospitalizations. Hyperlipidemia. Anxiety. ALLERGIES: No known allergies. MEDICATIONS: Include vancomycin, Zosyn, albuterol, heparin, methylprednisolone. Outpatient medications include Zantac, Zyrtec, Naprosyn, Zocor, Cymbalta, Singulair, simvastatin. SOCIAL HISTORY: As per HPI. SYSTEMS REVIEW: Neurologic: No loss of consciousness, seizure activity, focal weakness. Cardiac: Negative chest pain or palpitations. Respiratory: As per HPI. Gastrointestinal: Negative vomiting. No diarrhea. Genitourinary: Negative for urinary tract infection. LABORATORY DATA: White count 23.6, neutrophils 66, lymphocytes 19, monocytes 9, hematocrit 45.6, platelet count 488. BUN 14, creatinine 1.1. Liver enzymes normal. Cultures are pending. Urinalysis: Negative. Chest x-ray: Negative for acute infiltrate. PHYSICAL EXAMINATION: General: On exam, he is intubated, sedated on the ventilator. Vital Signs: Afebrile temperature, blood pressure 115/82, pulse 92 regular, respirations 21 per minute. Eyes: Sclerae are anicteric. Heart: Heart sounds S1, S2. Lungs: Air entry bilaterally. Abdomen: Soft and nontender. Extremities: Negative for edema. IMPRESSION: 1. Acute respiratory failure. 2. Acute exacerbation asthma. 3. Rule out pneumonia. 4. Rule out viral upper respiratory infection. 5. Polysubstance use. Await cultures. Obtain sputum culture, urine legionella, and pneumococcal antigens, respiratory viral panel, HIV test as status not know. Empiric antibiotic coverage with Zithromax and ceftriaxone. Continue ventilatory support. Corticosteroids. Critical care time spent 35 minutes. Thank you for the kind referral. TERESA PEREIRA M.D. [id number]
[2019-05-23] MEDS ORDERED: DEXTROSE 5%-WATER 100 ML IVPB ONE (14:19)
[2019-05-23] MEDS: HEPARIN NA (PORCINE) 5,000 UNITS/ML 1ML VIAL SQ SCH ×2 (14:20→21:24)
[2019-05-23] MEDS: CEFTRIAXONE 2 GM in DEXTROSE 5%-WATER 100 ML IVPB SCH (14:20)
[2019-05-23] MEDS ORDERED: ALBUTEROL SO4 2.5/IPRATROPIUM 0.5 INH SOL 3 ML VIAL.NEB. NEB SCH (15:00)
--- NOTE | 2019-05-23 15:29 | ECHO ---
Name: MARISELA JOHNSON Exam:Adult Echocardiogram Study Date: 05/23/2019 02:46 PM Age: 49 yrs Reason For Study: r/o ivd Height: 72 in Weight: 169 lb BSA: 2.0 m2 MMode/2D Measurements & Calculations IVSd: 1.0 cm Ao root diam: 3.5 cm LVIDd: 4.6 cm LA dimension: 2.2 cm LVIDs: 3.0 cm ACS: 2.2 cm LVPWd: 1.0 cm IVSs: 1.4 cm LVPWs: 1.2 cm EDV(Teich): 97.8 ml ESV(Teich): 33.8 ml Doppler Measurements & Calculations MV E max luis: 49.9 cm/sec Ao V2 max: 93.7 cm/sec MV A max luis: 65.2 cm/sec Ao max P.5 mmHg MV E/A: 0.77 Med Peak E' Luis: 7.7 cm/sec Med E/e': 6.5 Lat Peak E' Luis: 4.7 cm/sec Lat E/e': 10.7 Left Ventricle Left ventricular systolic function is normal. Ejection Fraction = 55-60%. The transmitral spectral Do ppler flow pattern is suggestive of impaired LV relaxation. Right Ventricle The right ventricle is grossly normal size. The right ventricular systolic function is grossly normal . Atria Normal left and right atrial size and function. Mitral Valve The mitral valve is normal in structure and function. There is no mitral valve stenosis. There is mil d mitral regurgitation. Tricuspid Valve The tricuspid valve is not well visualized, but is grossly normal. No tricuspid regurgitation. Aortic Valve The aortic valve opens well. No hemodynamically significant valvular aortic stenosis. No aortic regur gitation is present. Pulmonic Valve The pulmonic valve is not well seen, but is grossly normal. There is no pulmonic valvular stenosis. T here is no pulmonic valvular regurgitation. Great Vessels The aortic root is normal size. Pericardium/Pleura There is no pericardial effusion. Interpretation Summary Left ventricular systolic function is normal. Ejection Fraction = 55-60%. The transmitral spectral Doppler flow pattern is suggestive of impaired LV relaxation. There is mild mitral regurgitation. There is no pericardial effusion. MD Erik Castillo 05/23/2019 03:28 PM
[2019-05-23] MEDS: PANTOPRAZOLE SODIUM 40 MG VIAL IVPUSH SCH (16:04)
--- NOTE | 2019-05-23 16:52 | PROC ---
Central Line Insertion Indication: Other (A line, BP monitoring. Serial ABGs) Risks and Benefits Explained: Yes Consent on Chart: Yes Central Line: Other (A-line) Anesthesia: other (patient intubated, sedated) Sterile Technique: Yes Ultrasound Guided Assistance: Yes Position: Right Femoral Sterile Dressing Applied: Yes
[2019-05-23 17:17] LABS: ARTERIAL BLD GAS O2 SATURATION 93.9 % (95-98); ARTERIAL BLOOD GAS PCO2 54.1 mmHg (35-45); ARTERIAL BLOOD GAS PO2 86.2 mmHg (80-100); ARTERIAL BLOOD GAS pH 7.26 (7.35-7.45)
[2019-05-23 17:19] LABS: ALLENS TEST POSITIVE
[2019-05-23] MEDS: CHLORHEXIDINE GLUCONATE 4% CLEANSER FOR DECOLONIZATION TP SCH (21:29)
[2019-05-23 22:39] LABS: ARTERIAL BLD GAS O2 SATURATION 95.4 % (95-98); ARTERIAL BLOOD GAS PCO2 45.7 mmHg (35-45); ARTERIAL BLOOD GAS PO2 103 mmHg (80-100); ARTERIAL BLOOD GAS pH 7.33 (7.35-7.45)
[2019-05-23 22:40] LABS: ALLENS TEST POSITIVE
[2019-05-24] MEDS: ALBUTEROL SO4 2.5/IPRATROPIUM 0.5 INH SOL 3 ML VIAL.NEB. NEB SCH ×6 (00:13→21:40)
[2019-05-24] MEDS ORDERED: MIDAZOLAM IN 0.9 % SOD.CHLORID 1 MG/1 ML PLAST..BAG ONE ×2 (00:16→11:21)
[2019-05-24] MEDS: PROPOFOL 1,000,000 MCG/100 ML VIAL IVPB SCH ×7 (01:38→20:11)
[2019-05-24] MEDS: MIDAZOLAM 100 MG in SODIUM CHLORIDE 100 ML IVPB SCH ×3 (02:00→11:30)
[2019-05-24] MEDS: methylPREDNISolone NA SUCC 40 MG/1 ML VIAL IVPUSH SCH ×4 (02:25→21:06)
[2019-05-24] MEDS: HEPARIN NA (PORCINE) 5,000 UNITS/ML 1ML VIAL SQ SCH ×3 (06:26→21:06)
[2019-05-24 07:23] LABS: BASO % 0.1 % (0-2.0); HEMATOCRIT 35.6 % (35.4-49); HEMOGLOBIN 11.9 GM/dL (11.7-16.9); LYMPH % 4.9 % (8-40); MCH 31.3 pg (25.7-33.7); MCHC 33.5 g/dl (32.0-35.9); MEAN CELL VOLUME 93.4 fl (80-96); MEAN PLT VOLUME 7.9 fl (7.5-11.1); PLATELET COUNT 333 K/MM3 (134-434); RBC 3.82 M/mm3 (4.00-5.60); RDW 13.2 % (11.9-15.9); WHITE BLOOD COUNT 14.5 K/mm3 (4.0-10.0)
[2019-05-24 07:23] LABS: ARTERIAL BLD GAS O2 SATURATION 94.5 % (95-98); ARTERIAL BLOOD GAS BASE EXCESS -0.8 meq/l (-2-2); ARTERIAL BLOOD GAS PO2 93.9 mmHg (80-100); ARTERIAL BLOOD GAS pH 7.33 (7.35-7.45)
[2019-05-24 07:33] LABS: INR 1.03 (0.83-1.09); PROTHROMBIN TIME (PATIENT) 12.1 SEC (9.7-13.0)
[2019-05-24 07:35] LABS: ACTIVATED PTT 30.5 SECONDS (25.2-36.5)
[2019-05-24 07:45] LABS: ALBUMIN 3.6 g/dl (3.4-5.0); BILIRUBIN,TOTAL 0.6 mg/dL (0.2-1); BLOOD UREA NITROGEN 20.6 mg/dL (7-18); CALCIUM 8.3 mg/dL (8.5-10.1); CREATININE 1.1 mg/dL (0.55-1.3); MAGNESIUM 2.7 mg/dL (1.8-2.4); PHOSPHOROUS 3.6 mg/dL (2.5-4.9); POTASSIUM 4.3 mmol/L (3.5-5.1)
[2019-05-24] MEDS ORDERED: DEXTROSE 5%-WATER 100 ML IVPB ONE (07:53)
--- NOTE | 2019-05-24 08:12 | PN ---
Physical Exam: SUBJECTIVE: Patient seen and examined by the bedside, intubated and sedated. No acute overnight events. OBJECTIVE: Vital Signs Period Temp Pulse Resp BP Sys/Christiansen Pulse Ox Last 24 Hr 98.1 F-100.1 F 90-110 15-24 93-135/66-91 93-100 GENERAL: Intubated and sedated HEAD: Normal with no signs of trauma. EYES: SOFI EARS, NOSE, THROAT: Ears normal, nares patent, oropharynx clear without exudates. Moist mucous membranes. LUNGS: Clear breath sounds B/L HEART: Tachypneic, regular rhythm, normal S1 and S2 without murmur ABDOMEN: Soft, not distended, normoactive bowel sounds, UPPER EXTREMITIES: 2+ radial pulses, warm, well-perfused. No cyanosis. No clubbing. Cap refill <2 seconds. No peripheral edema. LOWER EXTREMITIES: 2+ dorsal pedal pulses, warm, well-perfused. No calf tenderness. No peripheral edema. NEUROLOGICAL: Sedated PSYCHIATRIC: Sedated SKIN: Warm, diaphoretic, normal turgor CBC, BMP 05/24/19 05:35 05/24/19 05:35 Current Medications Albuterol Sulfate (Ventolin 0.042trength) -) 1 amp NEB RQID PRN PRN Reason: Dyspnea Albuterol/Ipratropium (Duoneb -) 1 amp NEB RQ4H [facility] Last Admin: 05/24/19 11:58 Dose: 1 amp Chlorhexidine Gluconate (Hibiclens For Decolonization -) 1 applic TP HS [facility] Last Admin: 05/23/19 21:29 Dose: 1 applic Heparin Sodium (Porcine) (Heparin -) 5,000 unit SQ TID [facility] Last Admin: 05/24/19 06:26 Dose: 5,000 unit Propofol (Diprivan -) 1,000,000 mcg in 100 mls @ 8.369 mls/hr IVPB TITR [facility]; Protocol Last Admin: 05/24/19 11:27 Dose: 62.19 mcg/kg/min, 34.7 mls/hr Midazolam HCl 100 mg/ Sodium (Chloride) 100 mls @ 1 mls/hr IVPB TITR [facility]; Protocol Last Admin: 05/24/19 11:30 Dose: 10 mg/hr, 10 mls/hr Azithromycin (Zithromax 500mg Ivpb (Pre-Docked)) 500 mg in 250 mls @ 250 mls/ hr IVPB DAILY [facility] Last Admin: 05/24/19 09:25 Dose: 250 mls/hr Ceftriaxone Sodium 2 gm/ (Dextrose) 100 mls @ 200 mls/hr IVPB DAILY [facility]; Protocol Last Admin: 05/24/19 09:28 Dose: 200 mls/hr Fentanyl 500 mcg/ Dextrose 100 mls @ 5 mls/hr IVPB TITR [facility] Last Admin: 05/24/19 12:00 Dose: 25 mcg/hr, 5 mls/hr Methylprednisolone Sodium Succinate (Solu-Medrol -) 60 mg IVPUSH Q6H-IV [facility] Last Admin: 05/24/19 09:23 Dose: 60 mg Midazolam HCl (Versed -) 2 mg IVPUSH Q4H PRN PRN Reason: FOR SEDATION Mupirocin (Bactroban Ointment (For Decolonization) -) 1 applic NS BID [facility] Stop: 05/28/19 09:59 Last Admin: 05/24/19 09:28 Dose: 1 applic Pantoprazole Sodium (Protonix Iv) 40 mg IVPUSH DAILY [facility] Last Admin: 05/24/19 09:24 Dose: 40 mg ASSESSMENT/PLAN: 49M PMH of Asthma (on Advair, Proair, and Singulair at home), HLD and Anxiety. Presented to [facility] 05/23 with worsening SOB despite Ventolin and Nebulizer. Was found to have O2 42%, received SoluMedrol 125mg and duonebs with no improvement , decision was made to intubate. Intubation was initially unsuccessful, but eventually successful after administration of ketamine. #Neurology - Sedated on Propofol, starting Fentanyl, will lower Versed (May require additional Propofol due to Hx. of chronic Marijuana use) - AOx3 at baseline with no focal deficits #Pulmonology - Rt femoral arterial line placed 05/23 - ABG this morning: pH 7.35, pCO2 46 , pO2 86.5 , HCO3 24.9 - Solumedrol 60 mg Q8 - Duonebs - CXR (05/24) - LE Duplex: No DVT seen #ID - WBC 23.6 -> 14.5, afebrile - Ceftriaxone 2gm, Azythromycin 500mg for suspected pneumonia started 05/23 as per ID, received Zosyn 1x overnight - BCx, Influenza and RSV swab ordered - ID (Dr. Mott) consulted #Cardiology - denies any PMHx. or Family Hx. of any chronic medical conditions - Cardiac monitoring #GI - OGT placed - Emesis 1x prior to initial OG Tube placement #Renal - Lopes placed - UA: Protein 1+ - UTox positive for Marijuana, cocaine, benzos #FEN - Started on LR @ 100 - Phos 5.8 -> 3.6 (H), Mg 2.6 -> 2.7 (H) - NPO #Prophylaxis - Hep 5000 SQ TID - Protonix 40mg IV #Dispo - Might attempt to extubate tomorrow Visit type - Emergency Visit Emergency Visit: Yes ED Registration Date: 05/23/19 Care time: The patient presented to the Emergency Department on the above date and was hospitalized for further evaluation of their emergent condition. - New Patient This patient is new to me today: No - Critical Care Critical Care patient: Yes Total Critical Care Time (in minutes): 37 Critical Care Statement: The care of this patient involved high complexity decision making to prevent further life threatening deterioration of the patient 's condition and/or to evaluate & treat vital organ system(s) failure or risk of failure. ATTENDING PHYSICIAN STATEMENT I saw and evaluated the patient. I reviewed the resident's note and discussed the case with the resident. I agree with the resident's findings and plan as documented. SUBJECTIVE: OBJECTIVE: ASSESSMENT AND PLAN:
[2019-05-24 09:08] LABS: ANISOCYTOSIS 0; MACROCYTOSIS 0
[2019-05-24] MEDS: PANTOPRAZOLE SODIUM 40 MG VIAL IVPUSH SCH (09:24)
[2019-05-24] MEDS: AZITHROMYCIN IVPB 500 MG/250 ML BAG IVPB SCH (09:25)
[2019-05-24] MEDS: CEFTRIAXONE 2 GM in DEXTROSE 5%-WATER 100 ML IVPB SCH (09:28)
[2019-05-24] MEDS: MUPIROCIN 2% TOPICAL OINTMENT FOR DECOLONIZATION NS SCH ×2 (09:28→21:06)
[2019-05-24 09:45] LABS: PLATELET ESTIMATE ADEQUATE
--- NOTE | 2019-05-24 10:18 | PN ---
Teaching Attending Note Name of Resident: Omid Win ATTENDING PHYSICIAN STATEMENT I saw and evaluated the patient. I reviewed the resident's note and discussed the case with the resident. I agree with the resident's findings and plan as documented. SUBJECTIVE: Pt seen and examined in the ICU. Remains intubated, sedated. Peak pressures lower in mid 20s. Some accessory muscle use. OBJECTIVE: Vital Signs Period Temp Pulse Resp BP Sys/Christiansen Pulse Ox Last 24 Hr 98.1 F-100.1 F 90-110 15-24 93-135/66-91 97-100 Intake & Output 05/21/19 05/22/19 05/23/19 05/24/19 23:59 23:59 23:59 23:59 Intake Total 610 488.4 Output Total 720 450 Balance -110 38.4 Weight 76.7 kg 77.02 kg Gen: intubated, sedated, tachypneic Heart: RRR Lung: decreased breath sounds at the bases Abd: soft, nontender Ext: no edema CBC, BMP 05/24/19 05:35 05/24/19 05:35 Active Medications Albuterol Sulfate (Ventolin 0.042trength) -) 1 amp NEB RQID PRN PRN Reason: Dyspnea Albuterol/Ipratropium (Duoneb -) 1 amp NEB RQ4H [facility] Last Admin: 05/24/19 09:20 Dose: 1 amp Chlorhexidine Gluconate (Hibiclens For Decolonization -) 1 applic TP HS [facility] Last Admin: 05/23/19 21:29 Dose: 1 applic Heparin Sodium (Porcine) (Heparin -) 5,000 unit SQ TID [facility] Last Admin: 05/24/19 06:26 Dose: 5,000 unit Propofol (Diprivan -) 1,000,000 mcg in 100 mls @ 8.369 mls/hr IVPB TITR [facility]; Protocol Last Admin: 05/24/19 09:00 Dose: 62.19 mcg/kg/min, 34.7 mls/hr Midazolam HCl 100 mg/ Sodium (Chloride) 100 mls @ 1 mls/hr IVPB TITR [facility]; Protocol Last Titration: 05/24/19 07:00 Dose: 10 mg/hr, 10 mls/hr Azithromycin (Zithromax 500mg Ivpb (Pre-Docked)) 500 mg in 250 mls @ 250 mls/ hr IVPB DAILY [facility] Last Admin: 05/24/19 09:25 Dose: 250 mls/hr Ceftriaxone Sodium 2 gm/ (Dextrose) 100 mls @ 200 mls/hr IVPB DAILY [facility]; Protocol Last Admin: 05/24/19 09:28 Dose: 200 mls/hr Methylprednisolone Sodium Succinate (Solu-Medrol -) 60 mg IVPUSH Q6H-IV [facility] Last Admin: 05/24/19 09:23 Dose: 60 mg Midazolam HCl (Versed -) 2 mg IVPUSH Q4H PRN PRN Reason: FOR SEDATION Mupirocin (Bactroban Ointment (For Decolonization) -) 1 applic NS BID [facility] Stop: 05/28/19 09:59 Last Admin: 05/24/19 09:28 Dose: 1 applic Pantoprazole Sodium (Protonix Iv) 40 mg IVPUSH DAILY [facility] Last Admin: 05/24/19 09:24 Dose: 40 mg ASSESSMENT AND PLAN: Acute Bronchospasm/Acute Asthma Exacerbation Polysubstance Abuse r/o Pneumonia Anxiety Hyperlipidemia - continue medrol - inhaled bronchodilators standing and PRN - continue antibiotics - monitor ABG, peak pressures - sedate for vent synchrony - enteral feeds - DVT/GI prophylaxis - continue ICU monitoring critical care time spent in reviewing chart, evaluating patient and formulating plan 35 min
[2019-05-24] MEDS ORDERED: fentaNYL CITRATE 250 MCG/5 ML VIAL ONE ×2 (11:05→20:02)
--- NOTE | 2019-05-24 11:37 | PN ---
Progress Note, Physician History of Present Illness: SEDATED ON VENTILATOR TEMPS DOWN WBC IMPROVED - Current Medication List Current Medications: Active Medications Albuterol Sulfate (Ventolin 0.042trength) -) 1 amp NEB RQID PRN PRN Reason: Dyspnea Albuterol/Ipratropium (Duoneb -) 1 amp NEB RQ4H [facility] Last Admin: 05/24/19 09:20 Dose: 1 amp Chlorhexidine Gluconate (Hibiclens For Decolonization -) 1 applic TP HS [facility] Last Admin: 05/23/19 21:29 Dose: 1 applic Heparin Sodium (Porcine) (Heparin -) 5,000 unit SQ TID [facility] Last Admin: 05/24/19 06:26 Dose: 5,000 unit Propofol (Diprivan -) 1,000,000 mcg in 100 mls @ 8.369 mls/hr IVPB TITR [facility]; Protocol Last Admin: 05/24/19 11:27 Dose: 62.19 mcg/kg/min, 34.7 mls/hr Midazolam HCl 100 mg/ Sodium (Chloride) 100 mls @ 1 mls/hr IVPB TITR [facility]; Protocol Last Admin: 05/24/19 11:30 Dose: 10 mg/hr, 10 mls/hr Azithromycin (Zithromax 500mg Ivpb (Pre-Docked)) 500 mg in 250 mls @ 250 mls/ hr IVPB DAILY [facility] Last Admin: 05/24/19 09:25 Dose: 250 mls/hr Ceftriaxone Sodium 2 gm/ (Dextrose) 100 mls @ 200 mls/hr IVPB DAILY [facility]; Protocol Last Admin: 05/24/19 09:28 Dose: 200 mls/hr Methylprednisolone Sodium Succinate (Solu-Medrol -) 60 mg IVPUSH Q6H-IV [facility] Last Admin: 05/24/19 09:23 Dose: 60 mg Midazolam HCl (Versed -) 2 mg IVPUSH Q4H PRN PRN Reason: FOR SEDATION Mupirocin (Bactroban Ointment (For Decolonization) -) 1 applic NS BID [facility] Stop: 05/28/19 09:59 Last Admin: 05/24/19 09:28 Dose: 1 applic Pantoprazole Sodium (Protonix Iv) 40 mg IVPUSH DAILY [facility] Last Admin: 05/24/19 09:24 Dose: 40 mg - Objective Vital Signs: Vital Signs Temperature 98.1 F 05/24/19 06:00 Pulse Rate 92 H 05/24/19 08:00 Respiratory Rate 16 05/24/19 09:17 Blood Pressure 126/90 05/24/19 08:00 O2 Sat by Pulse Oximetry (%) 100 05/24/19 08:00 Constitutional: Yes: No Distress Eyes: Yes: Conjunctiva Clear Cardiovascular: Yes: Regular Rate and Rhythm, Tachycardia, S1, S2 Respiratory: Yes: Mechanically Ventilated Gastrointestinal: Yes: Normal Bowel Sounds, Soft. No: Tenderness Edema: No Labs: CBC, BMP 05/24/19 05:35 05/24/19 05:35 INR, PTT INR 1.03 (0.83-1.09) 05/24/19 05:35 Assessment/Plan ACUTE RESPIRATORY FAILURE ACUTE EXACERBATION ASTHMA R/O PNEUMONIA HX POLYSUBSTANCE USE AWAIT C/S CONTINUE EMPIRIC CEFTRIAXONE/ ZITHROMAX
--- NOTE | 2019-05-24 11:38 | PN ---
Progress Note (short form) - Note Progress Note: Patient seen and examined in ICU. OBJECTIVE: Vital Signs Temperature 98.1 F 05/24/19 06:00 Pulse Rate 92 H 05/24/19 08:00 Respiratory Rate 16 05/24/19 09:17 Blood Pressure 126/90 05/24/19 08:00 O2 Sat by Pulse Oximetry (%) 100 05/24/19 08:00 GENERAL: The patient is intubated , sedated in NAD. HEAD: Normal with no signs of trauma. EYES: sclera anicteric, conjunctiva clear. reactive ENT: Ears normal, positive for E-Tube NECK: Trachea midline. intubated LUNGS:decreased air entery bl , breathing improving , no wheezes, no crackles. HEART: tachy, S1, S2 positive, no murmur, rub or gallop. ABDOMEN: Soft, nontender, nondistended, normoactive bowel sounds, no guarding, no rebound, no hepatosplenomegaly, no masses. EXTREMITIES: 2+ pulses, warm, well-perfused, no edema. NEUROLOGICAL: Cranial nerves II through XII grossly intact. PSYCH: unable to access, intubated sedated. SKIN: Warm, dry, normal turgor, no rashes or lesions noted CBCD WBC 14.5 K/mm3 (4.0-10.0) H 05/24/19 05:35 RBC 3.82 M/mm3 (4.00-5.60) L 05/24/19 05:35 Hgb 11.9 GM/dL (11.7-16.9) 05/24/19 05:35 Hct 35.6 % (35.4-49) D 05/24/19 05:35 MCV 93.4 fl (80-96) 05/24/19 05:35 MCHC 33.5 g/dl (32.0-35.9) 05/24/19 05:35 RDW 13.2 % (11.9-15.9) 05/24/19 05:35 Plt Count 333 K/MM3 (134-434) D 05/24/19 05:35 MPV 7.9 fl (7.5-11.1) 05/24/19 05:35 CMP Sodium 136 mmol/L (136-145) 05/24/19 05:35 Potassium 4.3 mmol/L (3.5-5.1) 05/24/19 05:35 Chloride 104 mmol/L (98-107) 05/24/19 05:35 Carbon Dioxide 27 mmol/L (21-32) 05/24/19 05:35 Anion Gap 5 MMOL/L (8-16) L 05/24/19 05:35 BUN 20.6 mg/dL (7-18) H 05/24/19 05:35 Creatinine 1.1 mg/dL (0.55-1.3) 05/24/19 05:35 Random Glucose 169 mg/dL (74-106) H 05/24/19 05:35 Calcium 8.3 mg/dL (8.5-10.1) L 05/24/19 05:35 Total Bilirubin 0.6 mg/dL (0.2-1) 05/24/19 05:35 AST 11 U/L (15-37) L 05/24/19 05:35 ALT 23 U/L (13-61) 05/24/19 05:35 Alkaline Phosphatase 60 U/L (45-117) 05/24/19 05:35 Total Protein 6.0 g/dl (6.4-8.2) L 05/24/19 05:35 Albumin 3.6 g/dl (3.4-5.0) 05/24/19 05:35 CARDIAC ENZYMES Creatine Kinase 208 U/L (26-308) 05/23/19 02:15 Troponin I < 0.02 ng/ml (0.00-0.05) 05/23/19 05:00 Current Medications Generic Name Dose Route Start Last Admin Trade Name Tiago PRN Reason Stop Dose Admin Albuterol Sulfate 1 amp 05/23/19 06:03 Ventolin 0.042trength) - NEB RQID PRN Dyspnea Albuterol/Ipratropium 1 amp 05/23/19 09:15 05/24/19 09:20 Duoneb - NEB 1 amp RQ4H [facility] Administration Chlorhexidine Gluconate 1 applic 05/23/19 22:00 05/23/19 21:29 Hibiclens For Decolonization - TP 1 applic HS [facility] Administration Heparin Sodium (Porcine) 5,000 unit 05/23/19 14:00 05/24/19 06:26 Heparin - SQ 5,000 unit TID [facility] Administration Propofol 1,000,000 mcg in 100 mls @ 8.369 mls/hr 05/23/19 03:30 05/24/19 11: 27 Diprivan - IVPB 62.19 mcg/kg/min TITR [facility] 34.7 mls/hr Administration Protocol 15 MCG/KG/MIN Midazolam HCl 100 mg/ Sodium 100 mls @ 1 mls/hr 05/23/19 06:00 05/24/19 11:30 Chloride IVPB 10 mg/hr TITR [facility] 10 mls/hr Administration Protocol 1 MG/HR Azithromycin 500 mg in 250 mls @ 250 mls/hr 05/23/19 11:00 05/24/19 09:25 Zithromax 500mg Ivpb (Pre-Docked) IVPB 250 mls/hr DAILY [facility] Administration Ceftriaxone Sodium 2 gm/ 100 mls @ 200 mls/hr 05/23/19 15:00 05/24/19 09:28 Dextrose IVPB 200 mls/hr DAILY [facility] Administration Protocol Methylprednisolone Sodium Succinate 60 mg 05/23/19 09:00 05/24/19 09:23 Solu-Medrol - IVPUSH 60 mg Q6H-IV [facility] Administration Midazolam HCl 2 mg 05/23/19 12:00 Versed - IVPUSH Q4H PRN FOR SEDATION Mupirocin 1 applic 05/23/19 10:00 05/24/19 09:28 Bactroban Ointment (For Decolonization) - NS 05/28/19 09:59 1 applic BID [facility] Administration Pantoprazole Sodium 40 mg 05/23/19 15:00 05/24/19 09:24 Protonix Iv IVPUSH 40 mg DAILY [facility] Administration Home Medications Medication Instructions Recorded Alprazolam [Xanax] 0 mg PO PRN PRN 03/28/13 Cetirizine HCl [Zyrtec -] 10 mg PO PRN PRN 03/28/13 Naproxen [Naprosyn] 500 mg PO BID PRN #20 tablet 03/28/13 Simvastatin [Zocor -] 0 mg PO HS 03/28/13 Albuterol Sulfate [Proair Hfa] 8.5 gm IH PRN PRN 05/23/19 Duloxetine HCl [Cymbalta -] 60 mg PO DAILY 05/23/19 Fluticasone/Salmeterol [Advair 1 each IH BID 05/23/19 250-50 Diskus] Montelukast Na [Singulair -] 10 mg PO HS 05/23/19 Simvastatin 40 mg PO DAILY 05/23/19 Laboratory Tests 05/23/19 05/23/19 05/23/19 04:45 05:00 07:48 ABG pH 7.11 L* 7.14 L* ABG pCO2 at Pt Temp 85.8 H* 78.4 H* ABG pO2 at Pt Temp 482 H 79 L ABG HCO3 25.7 25.7 Opiates Screen Negative Methadone Screen Negative Barbiturate Screen Negative Phencyclidine Screen Negative Ur Amphetamines Screen Negative MDMA (Ecstasy) Screen Negative Benzodiazepines Screen Positive A* Cocaine Screen Positive A* U Marijuana (THC) Screen Positive A* CXR: nodular density/granuloma in the peripheral left lung field. mediastinum is not widened, An ET-tube is present with its tip at the level of clavicular heads, there is no sign of infiltrate or failure. The bones and soft tissues intact. ASSESSMENT AND PLAN: Patient is a 49 yo male with PMHx of Asthma , HLD and Anxiety, polysubstance abuse presented to [place] for having severe shortness of breath s/p intubation due to having respiratory failure, patient was transferred to [facility] overnight for further care and evaluation. # Acute respiratory failure s/p intubation: Neb treatments, solu medrol 60mg iv q8 continue, further care per ICU team . # Acute asthma exacerbation : intubated, sedated, nebs, solumedrol IV. #Polysubstance dependency (Marijuana and cocaine) : detox consult # Leukocytosis possible aspiration Pneumonia: Blue cx,s/p zosyn , as per ID to start renard/zithro , antigen for legienella and strep. negative. ID consult Dr. miller DVt px: heaprin Laboratory Tests 05/23/19 05/23/19 05/23/19 04:45 05:00 07:48 ABG pH 7.11 L* 7.14 L* ABG pCO2 at Pt Temp 85.8 H* 78.4 H* ABG pO2 at Pt Temp 482 H 79 L ABG HCO3 25.7 25.7 ABG O2 Sat (Measured) ABG O2 Content ABG Base Excess O2 Delivery Device Oxygen Flow Rate Vent Mode Vent Rate Mechanical Rate PEEP Pressure Support Vent Opiates Screen Negative Methadone Screen Negative Barbiturate Screen Negative Phencyclidine Screen Negative Ur Amphetamines Screen Negative MDMA (Ecstasy) Screen Negative Benzodiazepines Screen Positive A* Cocaine Screen Positive A* U Marijuana (THC) Screen Positive A* 05/24/19 11:26 ABG pH 7.35 ABG pCO2 at Pt Temp 46.0 H ABG pO2 at Pt Temp 86.5 ABG HCO3 24.9 ABG O2 Sat (Measured) 94.1 L ABG O2 Content 16.2 ABG Base Excess -0.4 O2 Delivery Device Vent Oxygen Flow Rate 40% Vent Mode A/c Vent Rate 16 Mechanical Rate Yes PEEP 5.0 Pressure Support Vent 500 Opiates Screen Methadone Screen Barbiturate Screen Phencyclidine Screen Ur Amphetamines Screen MDMA (Ecstasy) Screen Benzodiazepines Screen Cocaine Screen U Marijuana (THC) Screen Visit type - Emergency Visit Emergency Visit: Yes ED Registration Date: 05/23/19 Care time: The patient presented to the Emergency Department on the above date and was hospitalized for further evaluation of their emergent condition. - New Patient This patient is new to me today: No - Critical Care Critical Care patient: No - Discharge Referral Referred to [facility] Med [facility] No
[2019-05-24 11:41] LABS: ARTERIAL BLD GAS O2 SATURATION 94.1 % (95-98); ARTERIAL BLOOD GAS BASE EXCESS -0.4 meq/l (-2-2); ARTERIAL BLOOD GAS PO2 86.5 mmHg (80-100); ARTERIAL BLOOD GAS pH 7.35 (7.35-7.45)
[2019-05-24] MEDS: FENTANYL INJECTION 500 MCG in DEXTROSE 5%-WATER - 90 ML IVPB SCH ×2 (12:00→20:09)
[2019-05-24] MEDS: LACTATED RINGERS SOLUTION 1,000 ML/1,000 ML INFUS.BAG IV SCH ×2 (13:58→22:25)
[2019-05-24] MEDS ORDERED: ACETAMINOPHEN 1000 MG/100 ML VIAL (NON FORMULARY) IVPB SCH (21:00)
[2019-05-24] MEDS: CHLORHEXIDINE GLUCONATE 4% CLEANSER FOR DECOLONIZATION TP SCH (21:07)
[2019-05-24] MEDS: ACETAMINOPHEN 1000 MG/100 ML VIAL (NON FORMULARY) IVPB PRN (21:30)
[2019-05-24 21:57] LABS: ARTERIAL BLD GAS O2 SATURATION 93.6 % (95-98); ARTERIAL BLOOD GAS BASE EXCESS 1.5 meq/l (-2-2); ARTERIAL BLOOD GAS PCO2 56.9 mmHg (35-45); ARTERIAL BLOOD GAS PO2 87.3 mmHg (80-100); ARTERIAL BLOOD GAS pH 7.32 (7.35-7.45)
[2019-05-24] MEDS ORDERED: ALBUTEROL SO4 2.5/IPRATROPIUM 0.5 INH SOL 3 ML VIAL.NEB. NEB PRN (22:45)
[2019-05-25] MEDS: PROPOFOL 1,000,000 MCG/100 ML VIAL IVPB SCH ×4 (00:30→23:26)
[2019-05-25] MEDS ORDERED: MIDAZOLAM IN 0.9 % SOD.CHLORID 1 MG/1 ML PLAST..BAG ONE ×3 (00:48→23:24)
[2019-05-25] MEDS: ALBUTEROL SO4 2.5/IPRATROPIUM 0.5 INH SOL 3 ML VIAL.NEB. NEB SCH ×6 (01:20→21:36)
[2019-05-25 01:39] LABS: ARTERIAL BLD GAS O2 SATURATION 96.5 % (95-98); ARTERIAL BLOOD GAS BASE EXCESS -0.3 meq/l (-2-2); ARTERIAL BLOOD GAS PCO2 46.7 mmHg (35-45); ARTERIAL BLOOD GAS PO2 122 mmHg (80-100); ARTERIAL BLOOD GAS pH 7.35 (7.35-7.45)
[2019-05-25] MEDS: methylPREDNISolone NA SUCC 40 MG/1 ML VIAL IVPUSH SCH ×4 (03:41→21:09)
[2019-05-25] MEDS: MIDAZOLAM 100 MG in SODIUM CHLORIDE 100 ML IVPB SCH ×2 (03:47→23:26)
[2019-05-25] MEDS: HEPARIN NA (PORCINE) 5,000 UNITS/ML 1ML VIAL SQ SCH ×3 (05:01→21:09)
[2019-05-25 07:04] LABS: ARTERIAL BLD GAS O2 SATURATION 95.9 % (95-98); ARTERIAL BLOOD GAS BASE EXCESS 2.1 meq/l (-2-2); ARTERIAL BLOOD GAS PCO2 48.3 mmHg (35-45); ARTERIAL BLOOD GAS PO2 107 mmHg (80-100); ARTERIAL BLOOD GAS pH 7.37 (7.35-7.45)
[2019-05-25] MEDS ORDERED: fentaNYL CITRATE 250 MCG/5 ML VIAL ONE ×2 (07:22→17:57)
[2019-05-25 07:37] LABS: BASO % 0.1 % (0-2.0); HEMATOCRIT 34.4 % (35.4-49); HEMOGLOBIN 11.5 GM/dL (11.7-16.9); LYMPH % 4.6 % (8-40); MCH 31.2 pg (25.7-33.7); MCHC 33.3 g/dl (32.0-35.9); MEAN CELL VOLUME 93.5 fl (80-96); MEAN PLT VOLUME 7.9 fl (7.5-11.1); MONO % 5.1 % (3.8-10.2); NEUT % 90.2 % (42.8-82.8); PLATELET COUNT 347 K/MM3 (134-434); RBC 3.68 M/mm3 (4.00-5.60); RDW 13.5 % (11.9-15.9)
[2019-05-25 08:01] LABS: ALBUMIN 3.3 g/dl (3.4-5.0); BILIRUBIN,TOTAL 0.4 mg/dL (0.2-1); BLOOD UREA NITROGEN 25.4 mg/dL (7-18); CALCIUM 8.4 mg/dL (8.5-10.1); CREATININE 0.9 mg/dL (0.55-1.3); MAGNESIUM 2.7 mg/dL (1.8-2.4); POTASSIUM 4.7 mmol/L (3.5-5.1); TOT PROT 5.7 g/dl (6.4-8.2)
[2019-05-25] MEDS: PANTOPRAZOLE SODIUM 40 MG VIAL IVPUSH SCH (09:03)
[2019-05-25] MEDS: AZITHROMYCIN IVPB 500 MG/250 ML BAG IVPB SCH (09:03)
[2019-05-25] MEDS: MUPIROCIN 2% TOPICAL OINTMENT FOR DECOLONIZATION NS SCH ×2 (09:04→21:10)
[2019-05-25] MEDS ORDERED: DEXTROSE 5%-WATER 100 ML IVPB ONE (09:32)
[2019-05-25] MEDS: CEFTRIAXONE 2 GM in DEXTROSE 5%-WATER 100 ML IVPB SCH (09:39)
[2019-05-25] MEDS: SODIUM CHLORIDE 1,000 ML IV SCH ×2 (10:24→23:31)
--- NOTE | 2019-05-25 11:32 | PN ---
Teaching Attending Note Name of Resident: Guille Palomares ATTENDING PHYSICIAN STATEMENT I saw and evaluated the patient. I reviewed the resident's note and discussed the case with the resident. I agree with the resident's findings and plan as documented. SUBJECTIVE: Pt seen and examined in the ICU. Remains intubated, sedated. Peak pressures mid- high 20, Pplat 9. OBJECTIVE: Vital Signs Period Temp Pulse Resp BP Sys/Christiansen Pulse Ox Last 24 Hr 98.4 F-100.5 F 94-120 15-28 107-159/68-98 92-94 Intake & Output 05/22/19 05/23/19 05/24/19 05/25/19 23:59 23:59 23:59 23:59 Intake Total 610 1993.8 1808 Output Total 720 2050 300 Balance -110 -56.2 1508 Weight 76.7 kg 77.02 kg 75.75 kg Gen: intubated, sedated Heart: RRR Lung: decreased breath sounds at the bases Abd: soft, nontender Ext: no edema CBC, BMP 05/25/19 05:53 05/25/19 05:53 Active Medications Acetaminophen (Ofirmev Injection -) 1,000 mg IVPB Q6H PRN PRN Reason: FEVER Last Admin: 05/24/19 21:30 Dose: 1,000 mg Albuterol Sulfate (Ventolin 0.042trength) -) 1 amp NEB RQID PRN PRN Reason: Dyspnea Albuterol/Ipratropium (Duoneb -) 1 amp NEB RQ4H [facility] Last Admin: 05/25/19 08:30 Dose: 1 amp Albuterol/Ipratropium (Duoneb -) 1 amp NEB Q4H PRN PRN Reason: SHORTNESS OF BREATH Chlorhexidine Gluconate (Hibiclens For Decolonization -) 1 applic TP HS [facility] Last Admin: 05/24/19 21:07 Dose: 1 applic Heparin Sodium (Porcine) (Heparin -) 5,000 unit SQ TID [facility] Last Admin: 05/25/19 05:01 Dose: 5,000 unit Propofol (Diprivan -) 1,000,000 mcg in 100 mls @ 8.369 mls/hr IVPB TITR [facility]; Protocol Last Admin: 05/25/19 03:41 Dose: 62.19 mcg/kg/min, 34.7 mls/hr Midazolam HCl 100 mg/ Sodium (Chloride) 100 mls @ 1 mls/hr IVPB TITR [facility]; Protocol Last Admin: 05/25/19 03:47 Dose: 8 mg/hr, 8 mls/hr Azithromycin (Zithromax 500mg Ivpb (Pre-Docked)) 500 mg in 250 mls @ 250 mls/ hr IVPB DAILY [facility] Last Admin: 05/25/19 09:03 Dose: 250 mls/hr Ceftriaxone Sodium 2 gm/ (Dextrose) 100 mls @ 200 mls/hr IVPB DAILY [facility]; Protocol Last Admin: 05/25/19 09:39 Dose: 200 mls/hr Fentanyl 500 mcg/ Dextrose 100 mls @ 5 mls/hr IVPB TITR [facility] Last Admin: 05/24/19 20:09 Dose: 50 mcg/hr, 10 mls/hr Sodium Chloride (Normal Saline -) 1,000 mls @ 150 mls/hr IV ASDIR [facility] Last Admin: 05/25/19 10:24 Dose: 150 mls/hr Methylprednisolone Sodium Succinate (Solu-Medrol -) 60 mg IVPUSH Q6H-IV [facility] Last Admin: 05/25/19 08:53 Dose: 60 mg Midazolam HCl (Versed -) 2 mg IVPUSH Q4H PRN PRN Reason: FOR SEDATION Mupirocin (Bactroban Ointment (For Decolonization) -) 1 applic NS BID [facility] Stop: 05/28/19 09:59 Last Admin: 05/25/19 09:04 Dose: 1 applic Pantoprazole Sodium (Protonix Iv) 40 mg IVPUSH DAILY [facility] Last Admin: 05/25/19 09:03 Dose: 40 mg Terbutaline Sulfate (Brethine -) 2.5 mg PO TID [facility] ASSESSMENT AND PLAN: Acute Bronchospasm/Status Asthmaticus Polysubstance Abuse r/o Pneumonia Anxiety Hyperlipidemia - continue medrol - inhaled bronchodilators standing and PRN - add terbutaline - continue antibiotics - monitor ABG, peak pressures - sedate for vent synchrony - daily sedation vacations to assess mental status - spontaneous breathing trials as tolerated - enteral feeds - DVT/GI prophylaxis - continue ICU monitoring critical care time spent in reviewing chart, evaluating patient and formulating plan 35 min
--- NOTE | 2019-05-25 11:42 | PN ---
Progress Note, Physician History of Present Illness: SEDATED ON VENTILATOR FAILED WEANING TRIAL LOW GRADE TEMPS WBC REMAINS ELEVATED ON STEROIDS - Current Medication List Current Medications: Active Medications Acetaminophen (Ofirmev Injection -) 1,000 mg IVPB Q6H PRN PRN Reason: FEVER Last Admin: 05/24/19 21:30 Dose: 1,000 mg Albuterol Sulfate (Ventolin 0.042trength) -) 1 amp NEB RQID PRN PRN Reason: Dyspnea Albuterol/Ipratropium (Duoneb -) 1 amp NEB RQ4H [facility] Last Admin: 05/25/19 08:30 Dose: 1 amp Albuterol/Ipratropium (Duoneb -) 1 amp NEB Q4H PRN PRN Reason: SHORTNESS OF BREATH Chlorhexidine Gluconate (Hibiclens For Decolonization -) 1 applic TP HS [facility] Last Admin: 05/24/19 21:07 Dose: 1 applic Heparin Sodium (Porcine) (Heparin -) 5,000 unit SQ TID [facility] Last Admin: 05/25/19 05:01 Dose: 5,000 unit Propofol (Diprivan -) 1,000,000 mcg in 100 mls @ 8.369 mls/hr IVPB TITR [facility]; Protocol Last Admin: 05/25/19 03:41 Dose: 62.19 mcg/kg/min, 34.7 mls/hr Midazolam HCl 100 mg/ Sodium (Chloride) 100 mls @ 1 mls/hr IVPB TITR [facility]; Protocol Last Admin: 05/25/19 03:47 Dose: 8 mg/hr, 8 mls/hr Azithromycin (Zithromax 500mg Ivpb (Pre-Docked)) 500 mg in 250 mls @ 250 mls/ hr IVPB DAILY [facility] Last Admin: 05/25/19 09:03 Dose: 250 mls/hr Ceftriaxone Sodium 2 gm/ (Dextrose) 100 mls @ 200 mls/hr IVPB DAILY [facility]; Protocol Last Admin: 05/25/19 09:39 Dose: 200 mls/hr Fentanyl 500 mcg/ Dextrose 100 mls @ 5 mls/hr IVPB TITR [facility] Last Admin: 05/24/19 20:09 Dose: 50 mcg/hr, 10 mls/hr Sodium Chloride (Normal Saline -) 1,000 mls @ 150 mls/hr IV ASDIR [facility] Last Admin: 05/25/19 10:24 Dose: 150 mls/hr Methylprednisolone Sodium Succinate (Solu-Medrol -) 60 mg IVPUSH Q6H-IV [facility] Last Admin: 05/25/19 08:53 Dose: 60 mg Midazolam HCl (Versed -) 2 mg IVPUSH Q4H PRN PRN Reason: FOR SEDATION Mupirocin (Bactroban Ointment (For Decolonization) -) 1 applic NS BID [facility] Stop: 05/28/19 09:59 Last Admin: 05/25/19 09:04 Dose: 1 applic Pantoprazole Sodium (Protonix Iv) 40 mg IVPUSH DAILY [facility] Last Admin: 05/25/19 09:03 Dose: 40 mg Terbutaline Sulfate (Brethine -) 2.5 mg PO TID [facility] - Objective Vital Signs: Vital Signs Temperature 98.4 F 05/25/19 02:00 Pulse Rate 94 H 05/25/19 05:00 Respiratory Rate 16 05/25/19 09:00 Blood Pressure 126/89 05/25/19 05:00 O2 Sat by Pulse Oximetry (%) 92 L 05/24/19 20:45 Constitutional: Yes: No Distress Cardiovascular: Yes: Regular Rate and Rhythm, S1, S2 Respiratory: Yes: Mechanically Ventilated Gastrointestinal: Yes: Normal Bowel Sounds, Soft. No: Tenderness Edema: No Labs: CBC, BMP 05/25/19 05:53 05/25/19 05:53 INR, PTT INR 1.03 (0.83-1.09) 05/24/19 05:35 Assessment/Plan ACUTE RESPIRATORY FAILURE ACUTE EXACERBATION ASTHMA R/O PNEUMONIA HX POLYSUBSTANCE USE CONTINUE EMPIRIC CEFTRIAXONE/ ZITHROMAX
[2019-05-25] MEDS: FENTANYL INJECTION 500 MCG in DEXTROSE 5%-WATER - 90 ML IVPB SCH (12:00)
--- NOTE | 2019-05-25 12:55 | CONSULT ---
Consultation: REQUESTING PROVIDER: CONSULT REQUEST: We have been asked to medically evaluate this patient for ( specify). HISTORY OF PRESENT ILLNESS: REVIEW OF SYSTEMS: CONSTITUTIONAL: Absent: fever, chills, diaphoresis, generalized weakness, malaise, loss of appetite, weight change HEENT: Absent: rhinorrhea, nasal congestion, throat pain, throat swelling, difficulty swallowing, mouth swelling, ear pain, eye pain, visual changes CARDIOVASCULAR: Absent: chest pain, syncope, palpitations, irregular heart rate, lightheadedness , peripheral edema RESPIRATORY: Absent: cough, shortness of breath, dyspnea with exertion, orthopnea, wheezing, stridor, hemoptysis GASTROINTESTINAL: Absent: abdominal pain, abdominal distension, nausea, vomiting, diarrhea, constipation, melena, hematochezia GENITOURINARY: Absent: dysuria, frequency, urgency, hesitancy, hematuria, flank pain, genital pain MUSCULOSKELETAL: Absent: myalgia, arthralgia, joint swelling, back pain, neck pain SKIN: Absent: rash, itching, pallor HEMATOLOGIC/IMMUNOLOGIC: Absent: easy bleeding, easy bruising, lymphadenopathy, frequent infections ENDOCRINE: Absent: unexplained weight gain, unexplained weight loss, heat intolerance, cold intolerance NEUROLOGIC: Absent: headache, focal weakness or paresthesias, dizziness, unsteady gait, seizure, mental status changes, bladder or bowel incontinence PSYCHIATRIC: Absent: anxiety, depression, suicidal or homicidal ideation, hallucinations. PHYSICAL EXAMINATION Vital Signs - 24 hr 05/24/19 05/24/19 05/24/19 14:00 16:00 16:28 Temperature 98.8 F Pulse Rate 108 H 112 H Respiratory 16 17 18 Rate Blood Pressure 116/68 135/79 O2 Sat by Pulse Oximetry (%) 05/24/19 05/24/19 05/24/19 18:00 18:34 19:00 Temperature 99.6 F Pulse Rate 114 H 116 H Respiratory 16 16 16 Rate Blood Pressure 138/87 140/90 O2 Sat by Pulse 94 L Oximetry (%) 05/24/19 05/24/19 05/24/19 19:20 19:55 20:00 Temperature 100.5 F H Pulse Rate 117 H 119 H 120 H Respiratory 16 17 16 Rate Blood Pressure 159/97 157/96 158/98 O2 Sat by Pulse Oximetry (%) 05/24/19 05/24/19 05/24/19 20:45 21:00 21:53 Temperature Pulse Rate 118 H 107 H Respiratory 16 16 15 Rate Blood Pressure 128/78 115/71 O2 Sat by Pulse 92 L Oximetry (%) 05/24/19 05/24/19 05/25/19 22:00 23:00 00:00 Temperature Pulse Rate 107 H 100 H 96 H Respiratory 15 16 15 Rate Blood Pressure 107/73 135/69 143/89 O2 Sat by Pulse Oximetry (%) 05/25/19 05/25/19 05/25/19 00:30 01:00 02:00 Temperature 98.4 F Pulse Rate 100 H 96 H Respiratory 16 16 16 Rate Blood Pressure 133/86 134/79 O2 Sat by Pulse Oximetry (%) 05/25/19 05/25/19 05/25/19 03:00 03:33 04:00 Temperature Pulse Rate 94 H 94 H Respiratory 16 16 16 Rate Blood Pressure 141/78 127/78 O2 Sat by Pulse Oximetry (%) 05/25/19 05/25/19 05/25/19 05:00 07:00 08:51 Temperature Pulse Rate 94 H Respiratory 16 16 16 Rate Blood Pressure 126/89 O2 Sat by Pulse Oximetry (%) 05/25/19 05/25/19 09:00 12:46 Temperature Pulse Rate Respiratory 16 14 Rate Blood Pressure O2 Sat by Pulse Oximetry (%) GENERAL: Awake, alert, and fully oriented, in no acute distress. HEAD: Normal with no signs of trauma. EYES: Pupils equal, round and reactive to light, extraocular movements intact, sclera anicteric, conjunctiva clear. No lid lag. EARS, NOSE, THROAT: Ears normal, nares patent, oropharynx clear without exudates. Moist mucous membranes. NECK: Normal range of motion, supple without lymphadenopathy, JVD, or masses. LUNGS: Breath sounds equal, clear to auscultation bilaterally. No wheezes, and no crackles. No accessory muscle use. HEART: Regular rate and rhythm, normal S1 and S2 without murmur, rub or gallop. ABDOMEN: Soft, nontender, not distended, normoactive bowel sounds, no guarding, no rebound, no masses. No hepatomegaly or splenomegaly. MUSCULOSKELETAL: Normal range of motion at all joints. No bony deformities or tenderness. No CVA tenderness. UPPER EXTREMITIES: 2+ pulses, warm, well-perfused. No cyanosis. No clubbing. Cap refill <2 seconds. No peripheral edema. LOWER EXTREMITIES: 2+ pulses, warm, well-perfused. No calf tenderness. No peripheral edema. NEUROLOGICAL: Cranial nerves II-XII intact. Normal speech. Normal gait. PSYCHIATRIC: Cooperative. Good eye contact. Appropriate mood and affect. SKIN: Warm, dry, normal turgor, no rashes or lesions noted. Laboratory Results - last 24 hr 05/24/19 05/24/19 05/25/19 20:11 21:30 01:00 WBC RBC Hgb Hct MCV MCH MCHC RDW Plt Count MPV Absolute Neuts (auto) Neutrophils % Lymphocytes % Monocytes % Eosinophils % Basophils % Nucleated RBC % Anticoagulation Therapy No Result Required. Cancelled Puncture Site No Result Required. Cancelled Arterial line Patient Temperature Cancelled ABG pH 7.32 L Cancelled 7.35 ABG pCO2 at Pt Temp 56.9 H Cancelled 46.7 H ABG pO2 at Pt Temp 87.3 Cancelled 122 H ABG HCO3 28.2 H Cancelled 25.0 ABG O2 Sat (Measured) 93.6 L Cancelled 96.5 ABG O2 Content 15.9 Cancelled 14.4 ABG Base Excess 1.5 Cancelled -0.3 Lebron Test No Result Required. Cancelled No Result Required. O2 Delivery Device No Result Required. Cancelled Oxygen Flow Rate 40% Cancelled 50% Vent Mode No Result Required. Cancelled A/c Vent Rate 16 Cancelled 16 Mechanical Rate No Result Required. Cancelled PEEP 5.0 Cancelled 5.0 Pressure Support Vent 500 Cancelled 550 Sodium Potassium Chloride Carbon Dioxide Anion Gap BUN Creatinine Est GFR (CKD-EPI)AfAm Est GFR (CKD-EPI)NonAf Random Glucose Calcium Phosphorus Magnesium Total Bilirubin AST ALT Alkaline Phosphatase Creatine Kinase Total Protein Albumin 05/25/19 05/25/19 05/25/19 05:53 05:53 06:45 WBC 17.0 H RBC 3.68 L Hgb 11.5 L Hct 34.4 L MCV 93.5 MCH 31.2 MCHC 33.3 RDW 13.5 Plt Count 347 MPV 7.9 Absolute Neuts (auto) 15.3 H Neutrophils % 90.2 H Lymphocytes % 4.6 L Monocytes % 5.1 Eosinophils % 0.0 Basophils % 0.1 Nucleated RBC % 0 Anticoagulation Therapy No Result Required. Puncture Site Arterial line Patient Temperature ABG pH 7.37 ABG pCO2 at Pt Temp 48.3 H ABG pO2 at Pt Temp 107 H ABG HCO3 27.3 H ABG O2 Sat (Measured) 95.9 ABG O2 Content 14.9 ABG Base Excess 2.1 H Lebron Test No Result Required. O2 Delivery Device No Result Required. Oxygen Flow Rate 50% Vent Mode No Result Required. Vent Rate No Result Required. Mechanical Rate No Result Required. PEEP Pressure Support Vent No Result Required. Sodium 139 Potassium 4.7 Chloride 105 Carbon Dioxide 30 Anion Gap 4 L BUN 25.4 H Creatinine 0.9 Est GFR (CKD-EPI)AfAm 115.02 Est GFR (CKD-EPI)NonAf 99.24 Random Glucose 149 H Calcium 8.4 L Phosphorus 4.0 Magnesium 2.7 H Total Bilirubin 0.4 AST 11 L ALT 19 Alkaline Phosphatase 55 Creatine Kinase 132 Total Protein 5.7 L Albumin 3.3 L Active Medications Generic Name Dose Route Start Last Admin Trade Name Freq PRN Reason Stop Dose Admin Acetaminophen 1,000 mg 05/24/19 21:39 05/24/19 21:30 Ofirmev Injection - IVPB 1,000 mg Q6H PRN Administration FEVER Albuterol Sulfate 1 amp 05/23/19 06:03 Ventolin 0.042trength) - NEB RQID PRN Dyspnea Albuterol/Ipratropium 1 amp 05/23/19 09:15 05/25/19 12:45 Duoneb - NEB 1 amp RQ4H HUSSEIN Administration Albuterol/Ipratropium 1 amp 05/24/19 22:45 Duoneb - NEB Q4H PRN SHORTNESS OF BREATH Chlorhexidine Gluconate 1 applic 05/23/19 22:00 05/24/19 21:07 Hibiclens For Decolonization - TP 1 applic HS HUSSEIN Administration Heparin Sodium (Porcine) 5,000 unit 05/23/19 14:00 05/25/19 05:01 Heparin - SQ 5,000 unit TID HUSSEIN Administration Propofol 1,000,000 mcg in 100 mls @ 8.369 mls/hr 05/23/19 03:30 05/25/19 03: 41 Diprivan - IVPB 62.19 mcg/kg/min TITR HUSSEIN 34.7 mls/hr Administration Protocol 15 MCG/KG/MIN Midazolam HCl 100 mg/ Sodium 100 mls @ 1 mls/hr 05/23/19 06:00 05/25/19 03:47 Chloride IVPB 8 mg/hr TITR HUSSEIN 8 mls/hr Administration Protocol 1 MG/HR Azithromycin 500 mg in 250 mls @ 250 mls/hr 05/23/19 11:00 05/25/19 09:03 Zithromax 500mg Ivpb (Pre-Docked) IVPB 250 mls/hr DAILY HUSSEIN Administration Ceftriaxone Sodium 2 gm/ 100 mls @ 200 mls/hr 05/23/19 15:00 05/25/19 09:39 Dextrose IVPB 200 mls/hr DAILY HUSSEIN Administration Protocol Fentanyl 500 mcg/ Dextrose 100 mls @ 5 mls/hr 05/24/19 11:45 05/24/19 20:09 IVPB 50 mcg/hr TITR HUSSEIN 10 mls/hr Administration 25 MCG/HR Sodium Chloride 1,000 mls @ 150 mls/hr 05/25/19 09:45 05/25/19 10:24 Normal Saline - IV 150 mls/hr ASDIR HUSSEIN Administration Methylprednisolone Sodium Succinate 60 mg 05/23/19 09:00 05/25/19 08:53 Solu-Medrol - IVPUSH 60 mg Q6H-IV HUSSEIN Administration Midazolam HCl 2 mg 05/23/19 12:00 Versed - IVPUSH Q4H PRN FOR SEDATION Mupirocin 1 applic 05/23/19 10:00 05/25/19 09:04 Bactroban Ointment (For Decolonization) - NS 05/28/19 09:59 1 applic BID HUSSEIN Administration Pantoprazole Sodium 40 mg 05/23/19 15:00 05/25/19 09:03 Protonix Iv IVPUSH 40 mg DAILY HUSSEIN Administration Terbutaline Sulfate 2.5 mg 05/25/19 14:00 Brethine - PO TID HUSSEIN ASSESSMENT/PLAN: Dispo: We will continue to follow the patient. Thank you for this consultative opportunity. ATTENDING PHYSICIAN STATEMENT I saw and evaluated the patient. I reviewed the resident's note and discussed the case with the resident. I agree with the resident's findings and plan as documented. SUBJECTIVE: OBJECTIVE: ASSESSMENT AND PLAN:
--- NOTE | 2019-05-25 12:56 | PN ---
Physical Exam: SUBJECTIVE: Patient seen and examined. Pt. intubated and sedated. Pt. had temperature to 100.5 overnight. OBJECTIVE: Vital Signs Period Temp Pulse Resp BP Sys/Christiansen Pulse Ox Last 24 Hr 98.4 F-100.5 F 94-120 14-18 107-159/68-98 92-94 GENERAL: Sedated in respiratory distress HEAD: Normal with no signs of trauma. EYES: Pupils equal, round and reactive to light, extraocular movements intact, sclera anicteric, conjunctiva clear. EARS, NOSE, THROAT: Ears normal, nares patent, oropharynx clear without exudates. Moist mucous membranes. LUNGS: Decreased breath sounds on mechanical ventilation, tachypneic HEART: Tachypneic, regular rhythm, normal S1 and S2 without murmur ABDOMEN: Soft, not distended, normoactive bowel sounds, UPPER EXTREMITIES: 2+ radial pulses, warm, well-perfused. No cyanosis. No clubbing. Cap refill <2 seconds. No peripheral edema. LOWER EXTREMITIES: 2+ dorsal pedal pulses, warm, well-perfused. No calf tenderness. No peripheral edema. NEUROLOGICAL: Sedated PSYCHIATRIC: Sedated SKIN: Warm, diaphoretic, normal turgor Laboratory Results - last 24 hr 05/24/19 05/24/19 05/25/19 20:11 21:30 01:00 WBC RBC Hgb Hct MCV MCH MCHC RDW Plt Count MPV Absolute Neuts (auto) Neutrophils % Lymphocytes % Monocytes % Eosinophils % Basophils % Nucleated RBC % Anticoagulation Therapy No Result Required. Cancelled Puncture Site No Result Required. Cancelled Arterial line Patient Temperature Cancelled ABG pH 7.32 L Cancelled 7.35 ABG pCO2 at Pt Temp 56.9 H Cancelled 46.7 H ABG pO2 at Pt Temp 87.3 Cancelled 122 H ABG HCO3 28.2 H Cancelled 25.0 ABG O2 Sat (Measured) 93.6 L Cancelled 96.5 ABG O2 Content 15.9 Cancelled 14.4 ABG Base Excess 1.5 Cancelled -0.3 Lebron Test No Result Required. Cancelled No Result Required. O2 Delivery Device No Result Required. Cancelled Oxygen Flow Rate 40% Cancelled 50% Vent Mode No Result Required. Cancelled A/c Vent Rate 16 Cancelled 16 Mechanical Rate No Result Required. Cancelled PEEP 5.0 Cancelled 5.0 Pressure Support Vent 500 Cancelled 550 Sodium Potassium Chloride Carbon Dioxide Anion Gap BUN Creatinine Est GFR (CKD-EPI)AfAm Est GFR (CKD-EPI)NonAf Random Glucose Calcium Phosphorus Magnesium Total Bilirubin AST ALT Alkaline Phosphatase Creatine Kinase Total Protein Albumin 05/25/19 05/25/19 05/25/19 05:53 05:53 06:45 WBC 17.0 H RBC 3.68 L Hgb 11.5 L Hct 34.4 L MCV 93.5 MCH 31.2 MCHC 33.3 RDW 13.5 Plt Count 347 MPV 7.9 Absolute Neuts (auto) 15.3 H Neutrophils % 90.2 H Lymphocytes % 4.6 L Monocytes % 5.1 Eosinophils % 0.0 Basophils % 0.1 Nucleated RBC % 0 Anticoagulation Therapy No Result Required. Puncture Site Arterial line Patient Temperature ABG pH 7.37 ABG pCO2 at Pt Temp 48.3 H ABG pO2 at Pt Temp 107 H ABG HCO3 27.3 H ABG O2 Sat (Measured) 95.9 ABG O2 Content 14.9 ABG Base Excess 2.1 H Lebron Test No Result Required. O2 Delivery Device No Result Required. Oxygen Flow Rate 50% Vent Mode No Result Required. Vent Rate No Result Required. Mechanical Rate No Result Required. PEEP Pressure Support Vent No Result Required. Sodium 139 Potassium 4.7 Chloride 105 Carbon Dioxide 30 Anion Gap 4 L BUN 25.4 H Creatinine 0.9 Est GFR (CKD-EPI)AfAm 115.02 Est GFR (CKD-EPI)NonAf 99.24 Random Glucose 149 H Calcium 8.4 L Phosphorus 4.0 Magnesium 2.7 H Total Bilirubin 0.4 AST 11 L ALT 19 Alkaline Phosphatase 55 Creatine Kinase 132 Total Protein 5.7 L Albumin 3.3 L Active Medications Home Medications Medication Instructions Recorded Alprazolam [Xanax] 0 mg PO PRN PRN 03/28/13 Cetirizine HCl [Zyrtec -] 10 mg PO PRN PRN 03/28/13 Naproxen [Naprosyn] 500 mg PO BID PRN #20 tablet 03/28/13 Simvastatin [Zocor -] 0 mg PO HS 03/28/13 Albuterol Sulfate [Proair Hfa] 8.5 gm IH PRN PRN 05/23/19 Duloxetine HCl [Cymbalta -] 60 mg PO DAILY 05/23/19 Fluticasone/Salmeterol [Advair 1 each IH BID 05/23/19 250-50 Diskus] Montelukast Na [Singulair -] 10 mg PO HS 05/23/19 Simvastatin 40 mg PO DAILY 05/23/19 Current Medications Acetaminophen (Ofirmev Injection -) 1,000 mg IVPB Q6H PRN PRN Reason: FEVER Last Admin: 05/24/19 21:30 Dose: 1,000 mg Albuterol Sulfate (Ventolin 0.042trength) -) 1 amp NEB RQID PRN PRN Reason: Dyspnea Albuterol/Ipratropium (Duoneb -) 1 amp NEB RQ4H HUSSEIN Last Admin: 05/25/19 12:45 Dose: 1 amp Albuterol/Ipratropium (Duoneb -) 1 amp NEB Q4H PRN PRN Reason: SHORTNESS OF BREATH Chlorhexidine Gluconate (Hibiclens For Decolonization -) 1 applic TP HS [facility] Last Admin: 05/24/19 21:07 Dose: 1 applic Heparin Sodium (Porcine) (Heparin -) 5,000 unit SQ TID HUSSEIN Last Admin: 05/25/19 05:01 Dose: 5,000 unit Propofol (Diprivan -) 1,000,000 mcg in 100 mls @ 8.369 mls/hr IVPB TITR [facility]; Protocol Last Admin: 05/25/19 03:41 Dose: 62.19 mcg/kg/min, 34.7 mls/hr Midazolam HCl 100 mg/ Sodium (Chloride) 100 mls @ 1 mls/hr IVPB TITR [facility]; Protocol Last Admin: 05/25/19 03:47 Dose: 8 mg/hr, 8 mls/hr Azithromycin (Zithromax 500mg Ivpb (Pre-Docked)) 500 mg in 250 mls @ 250 mls/ hr IVPB DAILY HUSSEIN Last Admin: 05/25/19 09:03 Dose: 250 mls/hr Ceftriaxone Sodium 2 gm/ (Dextrose) 100 mls @ 200 mls/hr IVPB DAILY HUSSEIN; Protocol Last Admin: 05/25/19 09:39 Dose: 200 mls/hr Fentanyl 500 mcg/ Dextrose 100 mls @ 5 mls/hr IVPB TITR HUSSEIN Last Admin: 05/24/19 20:09 Dose: 50 mcg/hr, 10 mls/hr Sodium Chloride (Normal Saline -) 1,000 mls @ 150 mls/hr IV ASDIR [facility] Last Admin: 05/25/19 10:24 Dose: 150 mls/hr Methylprednisolone Sodium Succinate (Solu-Medrol -) 60 mg IVPUSH Q6H-IV [facility] Last Admin: 05/25/19 08:53 Dose: 60 mg Midazolam HCl (Versed -) 2 mg IVPUSH Q4H PRN PRN Reason: FOR SEDATION Mupirocin (Bactroban Ointment (For Decolonization) -) 1 applic NS BID [facility] Stop: 05/28/19 09:59 Last Admin: 05/25/19 09:04 Dose: 1 applic Pantoprazole Sodium (Protonix Iv) 40 mg IVPUSH DAILY [facility] Last Admin: 05/25/19 09:03 Dose: 40 mg Terbutaline Sulfate (Brethine -) 2.5 mg PO TID [facility] ASSESSMENT/PLAN: Pt. is a 49 y.o M w/ PMHx. of Asthma (on Advair, Proair, and Singulair at home) , HLD and Anxiety presented for shortness of breath that was worsening over the last few hours prior to [place] [facility] arrival. History provided by chart review and , Garima ([phone]), at bedside in the ICU as Pt. arrived intubated and sedated. #Pulmonology ABG on arrival is pH: 7.11, pCO2: 85 on arrival, latest ABG: pH: 7.37; pCO2: 48 A-line placed received Solumedrol 125mg @ [place] c/w Solumedrol 60mg Q6H c/w fentanyl gtt c/wversed gtt c/w propofol gtt- maximum dose Will start NAC with Duonebs Pt. has Hx. of chronic Marijuana use, studies have shown that these Pt.s require as much as 400% more propofol and Pt.s who do not use Marijuana Duonebs RQID standing Pt. evaluated by anaethesiology with glidoscope to confirm placement of ET tube , given rocuroroium, visualized "tight airways." On suctioning "large" clot was removed from ET tube, respirations improved after c/w Ceftriaxone 2gm, Azythromycin 500mg for suspected pneumonia started 05/23 as per ID f/u BCx. f/u Influenza and RSV swab f/u Rpt. CXR LE Duplex: No DVT seen #Renal Lopes placed UA: Protein 1+ UTox positive for Marijuana, cocaine, benzos #Neurology sedated on Propofol gtt At baseline Pt. has no focal deficits and has full ADLs and IADLs #Cardiology denies any PMHx. or Family Hx. of any chronic medical conditions will continue cardiac monitoring while admitted to ICU #Gastroenterology Emesis prior to initial OG Tube placement OG Tube replaced after anesthisology assessment will continue c/w Protonix 40mg IVP start enteral feeds #FEN no IVF, will re-evaluate in the AM monitor electrolytes replete as needed, received 1gm MgSulfate @ [place] NPO, will start Tube feeds #DVT Ppx Hep SQ TID Visit type - Emergency Visit Emergency Visit: No - New Patient This patient is new to me today: No - Critical Care Critical Care patient: Yes Total Critical Care Time (in minutes): 45 Critical Care Statement: The care of this patient involved high complexity decision making to prevent further life threatening deterioration of the patient 's condition and/or to evaluate & treat vital organ system(s) failure or risk of failure. - Discharge Referral Referred to [facility] No ATTENDING PHYSICIAN STATEMENT I saw and evaluated the patient. I reviewed the resident's note and discussed the case with the resident. I agree with the resident's findings and plan as documented. SUBJECTIVE: OBJECTIVE: ASSESSMENT AND PLAN:
[2019-05-25] MEDS ORDERED: PT OWN MED DRAWER 7, Y5N ONE ×2 (13:15→14:31)
[2019-05-25] MEDS: TERBUTALINE SULFATE 2.5 MG TABLET PO SCH ×2 (14:34→23:27)
--- NOTE | 2019-05-25 15:06 | PN ---
Physical Exam: SUBJECTIVE: Patient seen and examined. He is sedated and intubated. OBJECTIVE: Vital Signs Period Temp Pulse Resp BP Sys/Christiansen Pulse Ox Last 24 Hr 98.4 F-100.5 F 88-120 14-19 107-159/69-98 92-94 GENERAL: Sedated. HEAD: Normal with no signs of trauma. EYES: PERRL, minimal left periorbital edema ENT: Ears normal, nares patent, moist mucous membranes. NECK: Trachea midline, full range of motion, supple. LUNGS: Clear to auscultation bilaterally, no wheezes. On ventilator. HEART: Regular rate and rhythm, no murmur. ABDOMEN: Soft, nontender, nondistended, normoactive bowel sounds EXTREMITIES: Warm, well-perfused, non-pitting edema in all extremities. NEUROLOGICAL: Cannot evaluate PSYCH: Normal mood, normal affect. SKIN: Warm, dry, normal turgor Laboratory Results - last 24 hr 05/24/19 05/24/19 05/25/19 20:11 21:30 01:00 WBC RBC Hgb Hct MCV MCH MCHC RDW Plt Count MPV Absolute Neuts (auto) Neutrophils % Lymphocytes % Monocytes % Eosinophils % Basophils % Nucleated RBC % Anticoagulation Therapy No Result Required. Cancelled Puncture Site No Result Required. Cancelled Arterial line Patient Temperature Cancelled ABG pH 7.32 L Cancelled 7.35 ABG pCO2 at Pt Temp 56.9 H Cancelled 46.7 H ABG pO2 at Pt Temp 87.3 Cancelled 122 H ABG HCO3 28.2 H Cancelled 25.0 ABG O2 Sat (Measured) 93.6 L Cancelled 96.5 ABG O2 Content 15.9 Cancelled 14.4 ABG Base Excess 1.5 Cancelled -0.3 Lebron Test No Result Required. Cancelled No Result Required. O2 Delivery Device No Result Required. Cancelled Oxygen Flow Rate 40% Cancelled 50% Vent Mode No Result Required. Cancelled A/c Vent Rate 16 Cancelled 16 Mechanical Rate No Result Required. Cancelled PEEP 5.0 Cancelled 5.0 Pressure Support Vent 500 Cancelled 550 Sodium Potassium Chloride Carbon Dioxide Anion Gap BUN Creatinine Est GFR (CKD-EPI)AfAm Est GFR (CKD-EPI)NonAf Random Glucose Calcium Phosphorus Magnesium Total Bilirubin AST ALT Alkaline Phosphatase Creatine Kinase Total Protein Albumin 05/25/19 05/25/19 05/25/19 05:53 05:53 06:45 WBC 17.0 H RBC 3.68 L Hgb 11.5 L Hct 34.4 L MCV 93.5 MCH 31.2 MCHC 33.3 RDW 13.5 Plt Count 347 MPV 7.9 Absolute Neuts (auto) 15.3 H Neutrophils % 90.2 H Lymphocytes % 4.6 L Monocytes % 5.1 Eosinophils % 0.0 Basophils % 0.1 Nucleated RBC % 0 Anticoagulation Therapy No Result Required. Puncture Site Arterial line Patient Temperature ABG pH 7.37 ABG pCO2 at Pt Temp 48.3 H ABG pO2 at Pt Temp 107 H ABG HCO3 27.3 H ABG O2 Sat (Measured) 95.9 ABG O2 Content 14.9 ABG Base Excess 2.1 H Lebron Test No Result Required. O2 Delivery Device No Result Required. Oxygen Flow Rate 50% Vent Mode No Result Required. Vent Rate No Result Required. Mechanical Rate No Result Required. PEEP Pressure Support Vent No Result Required. Sodium 139 Potassium 4.7 Chloride 105 Carbon Dioxide 30 Anion Gap 4 L BUN 25.4 H Creatinine 0.9 Est GFR (CKD-EPI)AfAm 115.02 Est GFR (CKD-EPI)NonAf 99.24 Random Glucose 149 H Calcium 8.4 L Phosphorus 4.0 Magnesium 2.7 H Total Bilirubin 0.4 AST 11 L ALT 19 Alkaline Phosphatase 55 Creatine Kinase 132 Total Protein 5.7 L Albumin 3.3 L Active Medications Generic Name Dose Route Start Last Admin Trade Name Freq PRN Reason Stop Dose Admin Acetaminophen 1,000 mg 05/24/19 21:39 05/24/19 21:30 Ofirmev Injection - IVPB 1,000 mg Q6H PRN Administration FEVER Albuterol Sulfate 1 amp 05/23/19 06:03 Ventolin 0.042trength) - NEB RQID PRN Dyspnea Albuterol/Ipratropium 1 amp 05/23/19 09:15 05/25/19 12:45 Duoneb - NEB 1 amp RQ4H HUSSEIN Administration Albuterol/Ipratropium 1 amp 05/24/19 22:45 Duoneb - NEB Q4H PRN SHORTNESS OF BREATH Chlorhexidine Gluconate 1 applic 05/23/19 22:00 05/24/19 21:07 Hibiclens For Decolonization - TP 1 applic HS HUSSEIN Administration Heparin Sodium (Porcine) 5,000 unit 05/23/19 14:00 05/25/19 13:17 Heparin - SQ 5,000 unit TID HUSSEIN Administration Propofol 1,000,000 mcg in 100 mls @ 8.369 mls/hr 05/23/19 03:30 05/25/19 03: 41 Diprivan - IVPB 62.19 mcg/kg/min TITR HUSSEIN 34.7 mls/hr Administration Protocol 15 MCG/KG/MIN Midazolam HCl 100 mg/ Sodium 100 mls @ 1 mls/hr 05/23/19 06:00 05/25/19 03:47 Chloride IVPB 8 mg/hr TITR HUSSEIN 8 mls/hr Administration Protocol 1 MG/HR Azithromycin 500 mg in 250 mls @ 250 mls/hr 05/23/19 11:00 05/25/19 09:03 Zithromax 500mg Ivpb (Pre-Docked) IVPB 250 mls/hr DAILY HUSSEIN Administration Ceftriaxone Sodium 2 gm/ 100 mls @ 200 mls/hr 05/23/19 15:00 05/25/19 09:39 Dextrose IVPB 200 mls/hr DAILY HUSSEIN Administration Protocol Fentanyl 500 mcg/ Dextrose 100 mls @ 5 mls/hr 05/24/19 11:45 05/25/19 12:00 IVPB 50 mcg/hr TITR HUSSEIN 10 mls/hr Administration 25 MCG/HR Sodium Chloride 1,000 mls @ 150 mls/hr 05/25/19 09:45 05/25/19 10:24 Normal Saline - IV 150 mls/hr ASDIR HUSSEIN Administration Methylprednisolone Sodium Succinate 60 mg 05/23/19 09:00 05/25/19 14:34 Solu-Medrol - IVPUSH 60 mg Q6H-IV HUSSEIN Administration Midazolam HCl 2 mg 05/23/19 12:00 Versed - IVPUSH Q4H PRN FOR SEDATION Mupirocin 1 applic 05/23/19 10:00 05/25/19 09:04 Bactroban Ointment (For Decolonization) - NS 05/28/19 09:59 1 applic BID HUSSEIN Administration Pantoprazole Sodium 40 mg 05/23/19 15:00 05/25/19 09:03 Protonix Iv IVPUSH 40 mg DAILY HUSSEIN Administration Terbutaline Sulfate 2.5 mg 05/25/19 14:00 05/25/19 14:34 Brethine - PO 2.5 mg TID HUSSEIN Administration ASSESSMENT/PLAN: Mr. Fraga is a 49 y/o male with history of HLD, anxiety, and asthma who initially presented to [facility] due to shortness of breath. He was found to be in respiratory failure and was intubated and put on ventilator. #acute hypoxic hypercapneic respiratory failure Trial weaning pt off ventilator today but pt was having difficulty, will attempt again tomorrow -propofol, midazolam -solumedrol 60mg Q6H -duoneb Q4H -zithromax -rocephin -ID consulted DVT Ppx heparin FEN NS 150mL/hr monitor labs Visit type - Emergency Visit Emergency Visit: Yes ED Registration Date: 05/23/19 Care time: The patient presented to the Emergency Department on the above date and was hospitalized for further evaluation of their emergent condition. - New Patient This patient is new to me today: Yes Date on this admission: 05/25/19 - Critical Care Critical Care patient: Yes Total Critical Care Time (in minutes): 35 Critical Care Statement: The care of this patient involved high complexity decision making to prevent further life threatening deterioration of the patient 's condition and/or to evaluate & treat vital organ system(s) failure or risk of failure. - Discharge Referral Referred to [facility] Med [facility] No ATTENDING PHYSICIAN STATEMENT I saw and evaluated the patient. I reviewed the resident's note and discussed the case with the resident. I agree with the resident's findings and plan as documented. SUBJECTIVE: OBJECTIVE: ASSESSMENT AND PLAN:
[2019-05-25] MEDS ORDERED: METOPROLOL TARTRATE 5 MG/5 ML VIAL IVPUSH PRN (18:27)
--- NOTE | 2019-05-25 19:15 | PN ---
Teaching Attending Note Name of Resident: Audrey Salas ATTENDING PHYSICIAN STATEMENT I saw and evaluated the patient. I reviewed the resident's note and discussed the case with the resident. I agree with the resident's findings and plan as documented. SUBJECTIVE: Patient in ICU, doing better Vital Signs Temperature 98.4 F 05/25/19 14:00 Pulse Rate 113 H 05/25/19 18:00 Respiratory Rate 16 05/25/19 18:00 Blood Pressure 135/71 05/25/19 18:00 O2 Sat by Pulse Oximetry (%) 97 05/25/19 18:00 GENERAL: The patient is intubated , sedated in NAD. HEAD: Normal with no signs of trauma. EYES: sclera anicteric, conjunctiva clear. reactive ENT: Ears normal, positive for E-Tube NECK: Trachea midline. intubated LUNGS:decreased air entery bl , breathing improving , no wheezes, no crackles. HEART: tachy, S1, S2 positive, no murmur, rub or gallop. ABDOMEN: Soft, nontender, nondistended, normoactive bowel sounds, no guarding, no rebound, no hepatosplenomegaly, no masses. EXTREMITIES: 2+ pulses, warm, well-perfused, no edema. NEUROLOGICAL: Cranial nerves II through XII grossly intact. PSYCH: unable to access, intubated sedated. SKIN: Warm, dry, normal turgor, no rashes or lesions noted CBCD WBC 17.0 K/mm3 (4.0-10.0) H 05/25/19 05:53 RBC 3.68 M/mm3 (4.00-5.60) L 05/25/19 05:53 Hgb 11.5 GM/dL (11.7-16.9) L 05/25/19 05:53 Hct 34.4 % (35.4-49) L 05/25/19 05:53 MCV 93.5 fl (80-96) 05/25/19 05:53 MCHC 33.3 g/dl (32.0-35.9) 05/25/19 05:53 RDW 13.5 % (11.9-15.9) 05/25/19 05:53 Plt Count 347 K/MM3 (134-434) 05/25/19 05:53 MPV 7.9 fl (7.5-11.1) 05/25/19 05:53 CMP Sodium 139 mmol/L (136-145) 05/25/19 05:53 Potassium 4.7 mmol/L (3.5-5.1) 05/25/19 05:53 Chloride 105 mmol/L (98-107) 05/25/19 05:53 Carbon Dioxide 30 mmol/L (21-32) 05/25/19 05:53 Anion Gap 4 MMOL/L (8-16) L 05/25/19 05:53 BUN 25.4 mg/dL (7-18) H 05/25/19 05:53 Creatinine 0.9 mg/dL (0.55-1.3) 05/25/19 05:53 Random Glucose 149 mg/dL (74-106) H 05/25/19 05:53 Calcium 8.4 mg/dL (8.5-10.1) L 05/25/19 05:53 Total Bilirubin 0.4 mg/dL (0.2-1) 05/25/19 05:53 AST 11 U/L (15-37) L 05/25/19 05:53 ALT 19 U/L (13-61) 05/25/19 05:53 Alkaline Phosphatase 55 U/L (45-117) 05/25/19 05:53 Total Protein 5.7 g/dl (6.4-8.2) L 05/25/19 05:53 Albumin 3.3 g/dl (3.4-5.0) L 05/25/19 05:53 CARDIAC ENZYMES Creatine Kinase 132 U/L (26-308) 05/25/19 05:53 Troponin I < 0.02 ng/ml (0.00-0.05) 05/23/19 05:00 Home Medications Medication Instructions Recorded Alprazolam [Xanax] 0 mg PO PRN PRN 03/28/13 Cetirizine HCl [Zyrtec -] 10 mg PO PRN PRN 03/28/13 Naproxen [Naprosyn] 500 mg PO BID PRN #20 tablet 03/28/13 Simvastatin [Zocor -] 0 mg PO HS 03/28/13 Albuterol Sulfate [Proair Hfa] 8.5 gm IH PRN PRN 05/23/19 Duloxetine HCl [Cymbalta -] 60 mg PO DAILY 05/23/19 Fluticasone/Salmeterol [Advair 1 each IH BID 05/23/19 250-50 Diskus] Montelukast Na [Singulair -] 10 mg PO HS 05/23/19 Simvastatin 40 mg PO DAILY 05/23/19 Current Medications Generic Name Dose Route Start Last Admin Trade Name Freq PRN Reason Stop Dose Admin Acetaminophen 1,000 mg 05/24/19 21:39 05/24/19 21:30 Ofirmev Injection - IVPB 1,000 mg Q6H PRN Administration FEVER Albuterol Sulfate 1 amp 05/23/19 06:03 Ventolin 0.042trength) - NEB RQID PRN Dyspnea Albuterol/Ipratropium 1 amp 05/23/19 09:15 05/25/19 17:02 Duoneb - NEB 1 amp RQ4H HUSSEIN Administration Albuterol/Ipratropium 1 amp 05/24/19 22:45 Duoneb - NEB Q4H PRN SHORTNESS OF BREATH Chlorhexidine Gluconate 1 applic 05/23/19 22:00 05/24/19 21:07 Hibiclens For Decolonization - TP 1 applic HS HUSSEIN Administration Heparin Sodium (Porcine) 5,000 unit 05/23/19 14:00 05/25/19 13:17 Heparin - SQ 5,000 unit TID HUSSEIN Administration Propofol 1,000,000 mcg in 100 mls @ 8.369 mls/hr 05/23/19 03:30 05/25/19 03: 41 Diprivan - IVPB 62.19 mcg/kg/min TITR HUSSEIN 34.7 mls/hr Administration Protocol 15 MCG/KG/MIN Midazolam HCl 100 mg/ Sodium 100 mls @ 1 mls/hr 05/23/19 06:00 05/25/19 03:47 Chloride IVPB 8 mg/hr TITR HUSSEIN 8 mls/hr Administration Protocol 1 MG/HR Azithromycin 500 mg in 250 mls @ 250 mls/hr 05/23/19 11:00 05/25/19 09:03 Zithromax 500mg Ivpb (Pre-Docked) IVPB 250 mls/hr DAILY HUSSEIN Administration Ceftriaxone Sodium 2 gm/ 100 mls @ 200 mls/hr 05/23/19 15:00 05/25/19 09:39 Dextrose IVPB 200 mls/hr DAILY HUSSEIN Administration Protocol Fentanyl 500 mcg/ Dextrose 100 mls @ 5 mls/hr 05/24/19 11:45 05/25/19 12:00 IVPB 50 mcg/hr TITR HUSSEIN 10 mls/hr Administration 25 MCG/HR Sodium Chloride 1,000 mls @ 150 mls/hr 05/25/19 09:45 05/25/19 10:24 Normal Saline - IV 150 mls/hr ASDIR HUSSEIN Administration Methylprednisolone Sodium Succinate 60 mg 05/23/19 09:00 05/25/19 14:34 Solu-Medrol - IVPUSH 60 mg Q6H-IV HUSSEIN Administration Metoprolol Tartrate 5 mg 05/25/19 18:27 Lopressor Injection - IVPUSH Q4H PRN TACHYCARDIA (HR > 120) Midazolam HCl 2 mg 05/23/19 12:00 Versed - IVPUSH Q4H PRN FOR SEDATION Mupirocin 1 applic 05/23/19 10:00 05/25/19 09:04 Bactroban Ointment (For Decolonization) - NS 05/28/19 09:59 1 applic BID HUSSEIN Administration Pantoprazole Sodium 40 mg 05/23/19 15:00 05/25/19 09:03 Protonix Iv IVPUSH 40 mg DAILY HUSSEIN Administration Terbutaline Sulfate 2.5 mg 05/25/19 14:00 05/25/19 14:34 Brethine - PO 2.5 mg TID HUSSEIN Administration Laboratory Tests 05/23/19 05/23/19 05/23/19 04:45 05:00 07:48 ABG pH 7.11 L* 7.14 L* ABG pCO2 at Pt Temp 85.8 H* 78.4 H* ABG pO2 at Pt Temp 482 H 79 L ABG HCO3 25.7 25.7 Opiates Screen Negative Methadone Screen Negative Barbiturate Screen Negative Phencyclidine Screen Negative Ur Amphetamines Screen Negative MDMA (Ecstasy) Screen Negative Benzodiazepines Screen Positive A* Cocaine Screen Positive A* U Marijuana (THC) Screen Positive A* ABG Results ABG pH 7.37 (7.35-7.45) 05/25/19 06:45 ABG pCO2 at Pt Temp 48.3 mmHg (35-45) H 05/25/19 06:45 ABG pO2 at Pt Temp 107 mmHg (80-100) H 05/25/19 06:45 ABG HCO3 27.3 mmol/L (22-27) H 05/25/19 06:45 ABG O2 Sat (Measured) 95.9 % (95-98) 05/25/19 06:45 ABG O2 Content 14.9 % vol 05/25/19 06:45 ABG Base Excess 2.1 meq/l (-2-2) H 05/25/19 06:45 CXR: nodular density/granuloma in the peripheral left lung field. mediastinum is not widened, An ET-tube is present with its tip at the level of clavicular heads, there is no sign of infiltrate or failure. The bones and soft tissues intact. ASSESSMENT AND PLAN: Patient is a 49 yo male with PMHx of Asthma , HLD and Anxiety, polysubstance abuse presented to [place] for having severe shortness of breath s/p intubation due to having respiratory failure, patient was transferred to [facility] overnight for further care and evaluation. # Acute respiratory failure s/p intubation: Neb treatments, solu medrol 60mg iv q8 continue, further care per ICU team . # Acute asthma exacerbation multifactorial: intubated, sedated, nebs, solumedrol IV. #Polysubstance dependency (Marijuana and cocaine) : detox consult # Leukocytosis possible aspiration Pneumonia: Blue cx,s/p zosyn , as per ID to start renard/zithro , antigen for legienella and strep. negative. ID consult Dr. miller due to being on steroids . will continue to monitor , patient brown no fever. DVt px: heaprin
[2019-05-25] MEDS: ACETAMINOPHEN 1000 MG/100 ML VIAL (NON FORMULARY) IVPB PRN (20:45)
[2019-05-25] MEDS: CHLORHEXIDINE GLUCONATE 4% CLEANSER FOR DECOLONIZATION TP SCH (21:11)
[2019-05-26] MEDS: ALBUTEROL SO4 2.5/IPRATROPIUM 0.5 INH SOL 3 ML VIAL.NEB. NEB SCH ×6 (00:10→21:17)
[2019-05-26] MEDS: PROPOFOL 1,000,000 MCG/100 ML VIAL IVPB SCH (03:30)
[2019-05-26] MEDS: methylPREDNISolone NA SUCC 40 MG/1 ML VIAL IVPUSH SCH ×4 (03:30→21:22)
[2019-05-26] MEDS: TERBUTALINE SULFATE 2.5 MG TABLET PO SCH (05:19)
[2019-05-26] MEDS: HEPARIN NA (PORCINE) 5,000 UNITS/ML 1ML VIAL SQ SCH ×3 (05:22→21:22)
[2019-05-26] MEDS: SODIUM CHLORIDE 1,000 ML IV SCH ×2 (05:26→10:00)
[2019-05-26 06:40] LABS: ARTERIAL BLD GAS O2 SATURATION 95.1 % (95-98); ARTERIAL BLOOD GAS BASE EXCESS -0.2 meq/l (-2-2); ARTERIAL BLOOD GAS PCO2 44.2 mmHg (35-45); ARTERIAL BLOOD GAS PO2 97.6 mmHg (80-100); ARTERIAL BLOOD GAS pH 7.37 (7.35-7.45)
[2019-05-26] MEDS ORDERED: fentaNYL CITRATE 250 MCG/5 ML VIAL ONE (06:56)
[2019-05-26 07:33] LABS: BASO % 0.1 % (0-2.0); HEMATOCRIT 32.4 % (35.4-49); HEMOGLOBIN 10.8 GM/dL (11.7-16.9); LYMPH % 6.6 % (8-40); MCH 31.5 pg (25.7-33.7); MCHC 33.5 g/dl (32.0-35.9); MEAN PLT VOLUME 7.8 fl (7.5-11.1); MONO % 7.7 % (3.8-10.2); NEUT % 85.6 % (42.8-82.8); PLATELET COUNT 338 K/MM3 (134-434); RBC 3.44 M/mm3 (4.00-5.60); RDW 13.7 % (11.9-15.9); WHITE BLOOD COUNT 13.6 K/mm3 (4.0-10.0)
[2019-05-26] MEDS ORDERED: DEXTROSE 5%-WATER 100 ML IVPB ONE (07:36)
--- NOTE | 2019-05-26 07:51 | PN ---
Physical Exam: SUBJECTIVE: Patient seen and examined by the bedside, intubated and sedated. OBJECTIVE: Vital Signs Period Temp Pulse Resp BP Sys/Christiansen Pulse Ox Last 24 Hr 98.3 F-100.7 F 88-114 14-26 103-171/57-92 96-97 GENERAL: Intubated and sedated HEAD: Normal with no signs of trauma. EYES: SOFI EARS, NOSE, THROAT: Ears normal, nares patent, oropharynx clear without exudates. Moist mucous membranes. LUNGS: Clear breath sounds B/L, less nasal flaring and diaphragmatic breathing as compared to yesterday HEART: Tachypneic, regular rhythm, normal S1 and S2 without murmur ABDOMEN: Soft, not distended, normoactive bowel sounds, UPPER EXTREMITIES: 2+ radial pulses, warm, well-perfused. No cyanosis. No clubbing. Cap refill <2 seconds. No peripheral edema. LOWER EXTREMITIES: 2+ dorsal pedal pulses, warm, well-perfused. No calf tenderness. No peripheral edema. NEUROLOGICAL: Sedated PSYCHIATRIC: Sedated SKIN: Warm, diaphoretic, normal turgor CBC, BMP 05/26/19 10:15 05/26/19 05:38 Current Medications Acetaminophen (Ofirmev Injection -) 1,000 mg IVPB Q6H PRN PRN Reason: FEVER Last Admin: 05/25/19 20:45 Dose: 1,000 mg Albuterol Sulfate (Ventolin 0.042trength) -) 1 amp NEB RQID PRN PRN Reason: Dyspnea Albuterol/Ipratropium (Duoneb -) 1 amp NEB RQ4H HUSSEIN Last Admin: 05/26/19 11:21 Dose: 1 amp Albuterol/Ipratropium (Duoneb -) 1 amp NEB Q4H PRN PRN Reason: SHORTNESS OF BREATH Chlorhexidine Gluconate (Hibiclens For Decolonization -) 1 applic TP HS [facility] Last Admin: 05/25/19 21:11 Dose: 1 applic Heparin Sodium (Porcine) (Heparin -) 5,000 unit SQ TID [facility] Last Admin: 05/26/19 13:42 Dose: 5,000 unit Propofol (Diprivan -) 1,000,000 mcg in 100 mls @ 8.369 mls/hr IVPB TITR HUSSEIN; Protocol Last Admin: 05/26/19 03:30 Dose: 50 mcg/kg/min, 27.896 mls/hr Midazolam HCl 100 mg/ Sodium (Chloride) 100 mls @ 1 mls/hr IVPB TITR [facility]; Protocol Last Admin: 05/25/19 23:26 Dose: 10 mg/hr, 10 mls/hr Azithromycin (Zithromax 500mg Ivpb (Pre-Docked)) 500 mg in 250 mls @ 250 mls/ hr IVPB DAILY [facility] Last Admin: 05/26/19 09:01 Dose: 250 mls/hr Ceftriaxone Sodium 2 gm/ (Dextrose) 100 mls @ 200 mls/hr IVPB DAILY [facility]; Protocol Last Admin: 05/26/19 09:00 Dose: 200 mls/hr Fentanyl 500 mcg/ Dextrose 100 mls @ 5 mls/hr IVPB TITR HUSSEIN Last Admin: 05/25/19 12:00 Dose: 50 mcg/hr, 10 mls/hr Sodium Chloride (Normal Saline -) 1,000 mls @ 150 mls/hr IV ASDIR [facility] Last Admin: 05/26/19 05:26 Dose: 150 mls/hr Methylprednisolone Sodium Succinate (Solu-Medrol -) 60 mg IVPUSH Q6H-IV [facility] Last Admin: 05/26/19 07:59 Dose: 60 mg Metoprolol Tartrate (Lopressor Injection -) 5 mg IVPUSH Q4H PRN PRN Reason: TACHYCARDIA (HR > 120) Mupirocin (Bactroban Ointment (For Decolonization) -) 1 applic NS BID [facility] Stop: 05/28/19 09:59 Last Admin: 05/26/19 09:01 Dose: 1 applic Pantoprazole Sodium (Protonix Iv) 40 mg IVPUSH DAILY [facility] Last Admin: 05/26/19 09:01 Dose: 40 mg ASSESSMENT/PLAN: 49M PMH of Asthma (on Advair, Proair, and Singulair at home), HLD and Anxiety. Presented to [facility] 05/23 with worsening SOB despite Ventolin and Nebulizer. Was found to have O2 42%, received SoluMedrol 125mg and duonebs with no improvement , decision was made to intubate. Intubation was initially unsuccessful, but eventually successful after administration of ketamine. #Neurology - Extubated today, off sedation, appears confused with altered AMS - AOx3 at baseline with no focal deficits #Pulmonology - Extubated today - Rt femoral arterial line placed 05/23 - ABG this morning: pH 7.37, pCO2 44.2 , pO2 97.6 , HCO3 24.7 - Solumedrol 60 mg Q8, Duonebs - Terbutaline D/Yanick - LE Duplex: No DVT seen #ID - WBC 23.6 -> 14.5, afebrile - Ceftriaxone 2gm, Azythromycin 500mg for suspected pneumonia started 05/23 as per ID, received Zosyn 1x overnight - Sputum cx normal garrison, BCx pending - ID (Dr. Mott) on board #CVS - denies any PMHx. or Family Hx. of any chronic medical conditions - Lopressor 5mg IV PRN for HTN - Cardiac monitoring #GI - OGT removed - Currently NPO due to AMS, will order speech eval #Renal - Lopes placed - UA: Protein 1+ - UTox positive for Marijuana, cocaine, benzos #FEN - N/S @ 150 - Phos 3.9, mg 2.8 - NPO pending speech eval #Prophylaxis - Hep 5000 SQ TID - Protonix 40mg IV #Dispo - Monitor in ICU post extubation ATTENDING PHYSICIAN STATEMENT I saw and evaluated the patient. I reviewed the resident's note and discussed the case with the resident. I agree with the resident's findings and plan as documented. SUBJECTIVE: OBJECTIVE: ASSESSMENT AND PLAN:
[2019-05-26 07:54] LABS: BLOOD UREA NITROGEN 23.8 mg/dL (7-18); CALCIUM 7.7 mg/dL (8.5-10.1); CREATININE 0.7 mg/dL (0.55-1.3); MAGNESIUM 2.8 mg/dL (1.8-2.4); PHOSPHOROUS 3.8 mg/dL (2.5-4.9); POTASSIUM 4.6 mmol/L (3.5-5.1)
[2019-05-26] MEDS: CEFTRIAXONE 2 GM in DEXTROSE 5%-WATER 100 ML IVPB SCH (09:00)
[2019-05-26] MEDS: PANTOPRAZOLE SODIUM 40 MG VIAL IVPUSH SCH (09:01)
[2019-05-26] MEDS: AZITHROMYCIN IVPB 500 MG/250 ML BAG IVPB SCH (09:01)
[2019-05-26] MEDS: MUPIROCIN 2% TOPICAL OINTMENT FOR DECOLONIZATION NS SCH ×2 (09:01→21:22)
[2019-05-26 10:39] LABS: BASO % 0.1 % (0-2.0); HEMATOCRIT 37.9 % (35.4-49); HEMOGLOBIN 12.5 GM/dL (11.7-16.9); LYMPH % 6.6 % (8-40); MCH 31.3 pg (25.7-33.7); MEAN CELL VOLUME 94.7 fl (80-96); MEAN PLT VOLUME 7.6 fl (7.5-11.1); MONO % 5.2 % (3.8-10.2); NEUT % 88.1 % (42.8-82.8); PLATELET COUNT 361 K/MM3 (134-434); WHITE BLOOD COUNT 17.6 K/mm3 (4.0-10.0)
[2019-05-26] MEDS ORDERED: LABETALOL HCL 5 MG/1 ML (100MG/20 ML VIAL) IVPUSH ONE (11:38)
--- NOTE | 2019-05-26 12:54 | PN ---
Teaching Attending Note Name of Resident: Omid Win ATTENDING PHYSICIAN STATEMENT I saw and evaluated the patient. I reviewed the resident's note and discussed the case with the resident. I agree with the resident's findings and plan as documented. SUBJECTIVE: Pt seen and examined in the ICU. Intubated, arousable. Tolerated CPAP/PS trials , was getting agitated and subsequently extubated. Peak pressures prior to extubation 10. OBJECTIVE: Vital Signs Period Temp Pulse Resp BP Sys/Christiansen Pulse Ox Last 24 Hr 98.3 F-100.7 F 91-117 14-26 103-171/57-92 92-97 Intake & Output 05/23/19 05/24/19 05/25/19 05/26/19 23:59 23:59 23:59 23:59 Intake Total 610 1993.8 4768 4717.8 Output Total 720 2050 1200 900 Balance -110 -56.2 3568 3817.8 Weight 76.7 kg 77.02 kg 75.75 kg 79.152 kg Gen: extubated Heart: RRR Lung: decreased breath sounds at the bases Abd: soft, nontender Ext: no edema CBC, BMP 05/26/19 10:15 05/26/19 05:38 Active Medications Acetaminophen (Ofirmev Injection -) 1,000 mg IVPB Q6H PRN PRN Reason: FEVER Last Admin: 05/25/19 20:45 Dose: 1,000 mg Albuterol Sulfate (Ventolin 0.042trength) -) 1 amp NEB RQID PRN PRN Reason: Dyspnea Albuterol/Ipratropium (Duoneb -) 1 amp NEB RQ4H HUSSEIN Last Admin: 05/26/19 11:21 Dose: 1 amp Albuterol/Ipratropium (Duoneb -) 1 amp NEB Q4H PRN PRN Reason: SHORTNESS OF BREATH Chlorhexidine Gluconate (Hibiclens For Decolonization -) 1 applic TP HS HUSSEIN Last Admin: 05/25/19 21:11 Dose: 1 applic Heparin Sodium (Porcine) (Heparin -) 5,000 unit SQ TID HUSSEIN Last Admin: 05/26/19 05:22 Dose: 5,000 unit Propofol (Diprivan -) 1,000,000 mcg in 100 mls @ 8.369 mls/hr IVPB TITR HUSSEIN; Protocol Last Admin: 05/26/19 03:30 Dose: 50 mcg/kg/min, 27.896 mls/hr Midazolam HCl 100 mg/ Sodium (Chloride) 100 mls @ 1 mls/hr IVPB TITR HUSSEIN; Protocol Last Admin: 05/25/19 23:26 Dose: 10 mg/hr, 10 mls/hr Azithromycin (Zithromax 500mg Ivpb (Pre-Docked)) 500 mg in 250 mls @ 250 mls/ hr IVPB DAILY HUSSEIN Last Admin: 05/26/19 09:01 Dose: 250 mls/hr Ceftriaxone Sodium 2 gm/ (Dextrose) 100 mls @ 200 mls/hr IVPB DAILY [facility]SEIN; Protocol Last Admin: 05/26/19 09:00 Dose: 200 mls/hr Fentanyl 500 mcg/ Dextrose 100 mls @ 5 mls/hr IVPB TITR HUSSEIN Last Admin: 05/25/19 12:00 Dose: 50 mcg/hr, 10 mls/hr Sodium Chloride (Normal Saline -) 1,000 mls @ 150 mls/hr IV ASDIR [facility] Last Admin: 05/26/19 05:26 Dose: 150 mls/hr Methylprednisolone Sodium Succinate (Solu-Medrol -) 60 mg IVPUSH Q6H-IV [facility]USSEIN Last Admin: 05/26/19 07:59 Dose: 60 mg Metoprolol Tartrate (Lopressor Injection -) 5 mg IVPUSH Q4H PRN PRN Reason: TACHYCARDIA (HR > 120) Mupirocin (Bactroban Ointment (For Decolonization) -) 1 applic NS BID [facility] Stop: 05/28/19 09:59 Last Admin: 05/26/19 09:01 Dose: 1 applic Pantoprazole Sodium (Protonix Iv) 40 mg IVPUSH DAILY [facility] Last Admin: 05/26/19 09:01 Dose: 40 mg Terbutaline Sulfate (Brethine -) 2.5 mg PO TID [facility] Last Admin: 05/26/19 05:19 Dose: 2.5 mg ASSESSMENT AND PLAN: Acute Bronchospasm/Status Asthmaticus Polysubstance Abuse r/o Pneumonia Anxiety Hyperlipidemia - continue medrol - inhaled bronchodilators standing and PRN - can d/c terbutaline - continue antibiotics - aspiration precautions - DVT/GI prophylaxis - continue ICU monitoring critical care time spent in reviewing chart, evaluating patient and formulating plan 35 min
[2019-05-26 12:55] LABS: ANISOCYTOSIS 1+; MACROCYTOSIS 1+; OVALOCYTE 1+; PLATELET ESTIMATE NORMAL
[2019-05-26] MEDS ORDERED: HALOPERIDOL LACTATE 5 MG/ML ONE (14:53)
[2019-05-26] MEDS ORDERED: HALOPERIDOL DECANOATE 100 MG/ML IM ONE (14:53)
--- NOTE | 2019-05-26 14:53 | PN ---
Physical Exam: SUBJECTIVE: Patient seen and examined. He is intubated and sedated. Upon re-examining pt, he has been extubated and is waking up. OBJECTIVE: Vital Signs Period Temp Pulse Resp BP Sys/Christiansen Pulse Ox Last 24 Hr 98.3 F-100.7 F 91-117 14-26 112-171/63-103 92-97 GENERAL: Sleepy, but arousable HEAD: Normal with no signs of trauma. EYES: PERRL, minimal left periorbital edema ENT: Ears normal, nares patent, moist mucous membranes. NECK: Trachea midline, full range of motion, supple. LUNGS: Clear to auscultation bilaterally, no wheezes. HEART: Regular rate and rhythm, no murmur. ABDOMEN: Soft, nontender, nondistended, normoactive bowel sounds EXTREMITIES: Warm, well-perfused, non-pitting edema in all extremities, decreased from yesterday. NEUROLOGICAL: Cannot fully assess. PSYCH: Cannot fully assess. SKIN: Warm, dry, normal turgor Laboratory Results - last 24 hr 05/26/19 05/26/19 05/26/19 05:38 05:38 06:20 WBC 13.6 H RBC 3.44 L Hgb 10.8 L Hct 32.4 L MCV 94.0 MCH 31.5 MCHC 33.5 RDW 13.7 Plt Count 338 MPV 7.8 Absolute Neuts (auto) 11.7 H Neutrophils % 85.6 H Neutrophils % (Manual) Band Neutrophils % Lymphocytes % 6.6 L D Lymphocytes % (Manual) Monocytes % 7.7 Monocytes % (Manual) Eosinophils % 0.0 Eosinophils % (Manual) Basophils % 0.1 Basophils % (Manual) Myelocytes % (Man) Promyelocytes % (Man) Blast Cells % (Manual) Nucleated RBC % 0 Metamyelocytes Hypochromia Platelet Estimate Poikilocytosis Anisocytosis Macrocytosis Ovalocytes Anticoagulation Therapy No Result Required. Puncture Site Arterial line ABG pH 7.37 ABG pCO2 at Pt Temp 44.2 ABG pO2 at Pt Temp 97.6 ABG HCO3 24.7 ABG O2 Sat (Measured) 95.1 ABG O2 Content 14.0 ABG Base Excess -0.2 Lebron Test No Result Required. O2 Delivery Device No Result Required. Oxygen Flow Rate 50% Vent Mode A/c Vent Rate 10 Mechanical Rate No Result Required. PEEP 5.0 Pressure Support Vent 500 Sodium 141 Potassium 4.6 Chloride 107 Carbon Dioxide 32 Anion Gap 2 L BUN 23.8 H Creatinine 0.7 Est GFR (CKD-EPI)AfAm 127.53 Est GFR (CKD-EPI)NonAf 110.04 Random Glucose 176 H Calcium 7.7 L Phosphorus 3.8 Magnesium 2.8 H 05/26/19 10:15 WBC 17.6 H RBC 4.00 Hgb 12.5 Hct 37.9 D MCV 94.7 MCH 31.3 MCHC 33.0 RDW 14.0 Plt Count 361 MPV 7.6 Absolute Neuts (auto) 15.5 H Neutrophils % 88.1 H Neutrophils % (Manual) 83.0 H Band Neutrophils % 2.0 Lymphocytes % 6.6 L Lymphocytes % (Manual) 9.0 D Monocytes % 5.2 Monocytes % (Manual) 3 L Eosinophils % 0.0 Eosinophils % (Manual) 0.0 Basophils % 0.1 Basophils % (Manual) 0.0 Myelocytes % (Man) 1 D Promyelocytes % (Man) 0 Blast Cells % (Manual) 0 Nucleated RBC % 0 Metamyelocytes 0 Hypochromia 0 Platelet Estimate Normal Poikilocytosis 0 Anisocytosis 1+ Macrocytosis 1+ Ovalocytes 1+ Anticoagulation Therapy Puncture Site ABG pH ABG pCO2 at Pt Temp ABG pO2 at Pt Temp ABG HCO3 ABG O2 Sat (Measured) ABG O2 Content ABG Base Excess Lebron Test O2 Delivery Device Oxygen Flow Rate Vent Mode Vent Rate Mechanical Rate PEEP Pressure Support Vent Sodium Potassium Chloride Carbon Dioxide Anion Gap BUN Creatinine Est GFR (CKD-EPI)AfAm Est GFR (CKD-EPI)NonAf Random Glucose Calcium Phosphorus Magnesium Active Medications Generic Name Dose Route Start Last Admin Trade Name Freq PRN Reason Stop Dose Admin Acetaminophen 1,000 mg 05/24/19 21:39 05/25/19 20:45 Ofirmev Injection - IVPB 1,000 mg Q6H PRN Administration FEVER Albuterol Sulfate 1 amp 05/23/19 06:03 Ventolin 0.042trength) - NEB RQID PRN Dyspnea Albuterol/Ipratropium 1 amp 05/23/19 09:15 05/26/19 11:21 Duoneb - NEB 1 amp RQ4H HUSSEIN Administration Albuterol/Ipratropium 1 amp 05/24/19 22:45 Duoneb - NEB Q4H PRN SHORTNESS OF BREATH Chlorhexidine Gluconate 1 applic 05/23/19 22:00 05/25/19 21:11 Hibiclens For Decolonization - TP 1 applic HS HUSSEIN Administration Heparin Sodium (Porcine) 5,000 unit 05/23/19 14:00 05/26/19 13:42 Heparin - SQ 5,000 unit TID HUSSEIN Administration Propofol 1,000,000 mcg in 100 mls @ 8.369 mls/hr 05/23/19 03:30 05/26/19 03: 30 Diprivan - IVPB 50 mcg/kg/min TITR HUSSEIN 27.896 mls/hr Administration Protocol 15 MCG/KG/MIN Midazolam HCl 100 mg/ Sodium 100 mls @ 1 mls/hr 05/23/19 06:00 05/25/19 23:26 Chloride IVPB 10 mg/hr TITR HUSSEIN 10 mls/hr Administration Protocol 1 MG/HR Azithromycin 500 mg in 250 mls @ 250 mls/hr 05/23/19 11:00 05/26/19 09:01 Zithromax 500mg Ivpb (Pre-Docked) IVPB 250 mls/hr DAILY HUSSEIN Administration Ceftriaxone Sodium 2 gm/ 100 mls @ 200 mls/hr 05/23/19 15:00 05/26/19 09:00 Dextrose IVPB 200 mls/hr DAILY HUSSEIN Administration Protocol Fentanyl 500 mcg/ Dextrose 100 mls @ 5 mls/hr 05/24/19 11:45 05/25/19 12:00 IVPB 50 mcg/hr TITR HUSSEIN 10 mls/hr Administration 25 MCG/HR Sodium Chloride 1,000 mls @ 150 mls/hr 05/25/19 09:45 05/26/19 05:26 Normal Saline - IV 150 mls/hr ASDIR HUSSEIN Administration Methylprednisolone Sodium Succinate 60 mg 05/23/19 09:00 05/26/19 07:59 Solu-Medrol - IVPUSH 60 mg Q6H-IV HUSSEIN Administration Metoprolol Tartrate 5 mg 05/25/19 18:27 Lopressor Injection - IVPUSH Q4H PRN TACHYCARDIA (HR > 120) Mupirocin 1 applic 05/23/19 10:00 05/26/19 09:01 Bactroban Ointment (For Decolonization) - NS 05/28/19 09:59 1 applic BID HUSSEIN Administration Pantoprazole Sodium 40 mg 05/23/19 15:00 05/26/19 09:01 Protonix Iv IVPUSH 40 mg DAILY HUSSEIN Administration ASSESSMENT/PLAN: Mr. Fraga is a 49 y/o male with history of HLD, anxiety, and asthma who initially presented to [facility] due to shortness of breath. He was found to be in respiratory failure and was intubated and put on ventilator. #acute hypoxic hypercapneic respiratory failure currently off ventilator -sputum cx positive for moraxella -prelim blood cx negative -solumedrol 60mg Q6H -duoneb Q4H -zithromax -rocephin -ID following DVT Ppx heparin FEN NS 150mL/hr monitor labs NPO Visit type - Emergency Visit Emergency Visit: Yes ED Registration Date: 05/23/19 Care time: The patient presented to the Emergency Department on the above date and was hospitalized for further evaluation of their emergent condition. - New Patient This patient is new to me today: No - Critical Care Critical Care patient: Yes Total Critical Care Time (in minutes): 35 Critical Care Statement: The care of this patient involved high complexity decision making to prevent further life threatening deterioration of the patient 's condition and/or to evaluate & treat vital organ system(s) failure or risk of failure. - Discharge Referral Referred to [facility] Med [facility] No ATTENDING PHYSICIAN STATEMENT I saw and evaluated the patient. I reviewed the resident's note and discussed the case with the resident. I agree with the resident's findings and plan as documented. SUBJECTIVE: OBJECTIVE: ASSESSMENT AND PLAN:
[2019-05-26] MEDS ORDERED: HEPARIN - 25,000 UNIT in SODIUM CHLORIDE 495 ML IV SCH (15:30)
[2019-05-26] MEDS: DEXMEDETOMIDINE HCL 200 MCG in SODIUM CHLORIDE 48 ML IVPB SCH (15:30)
[2019-05-26] MEDS ORDERED: LORazepam 2 MG/ML SDV VIAL IVPUSH ONE ×2 (16:17→20:05)
[2019-05-26] MEDS ORDERED: LORazepam 2 MG/ML SDV VIAL ONE (16:19)
--- NOTE | 2019-05-26 19:42 | PN ---
Teaching Attending Note Name of Resident: Audrey Salas ATTENDING PHYSICIAN STATEMENT I saw and evaluated the patient. I reviewed the resident's note and discussed the case with the resident. I agree with the resident's findings and plan as documented. SUBJECTIVE: patient was seen around 10am today Patient is in ICU , extubated on 100%NR Vital Signs Temperature 99 F 05/26/19 12:00 Pulse Rate 104 H 05/26/19 18:00 Respiratory Rate 21 H 05/26/19 18:00 Blood Pressure 167/93 05/26/19 18:00 O2 Sat by Pulse Oximetry (%) 92 L 05/26/19 10:53 GENERAL: The patient is extubated now,on 100%NR HEAD: Normal with no signs of trauma. EYES: sclera anicteric, conjunctiva clear. reactive ENT: Ears normal,neck is supple NECK: Trachea midline. LUNGS:decreased air entery bl , no wheezes, no crackles. HEART: tachy, S1, S2 positive, no murmur, rub or gallop. ABDOMEN: Soft, nontender, nondistended, normoactive bowel sounds, no guarding, no rebound, no hepatosplenomegaly, no masses. EXTREMITIES: 2+ pulses, warm, well-perfused, + edema 1+ NEUROLOGICAL: Cranial nerves II through XII grossly intact. SKIN: Warm, dry, normal turgor, no rashes or lesions noted CBCD WBC 17.6 K/mm3 (4.0-10.0) H 05/26/19 10:15 RBC 4.00 M/mm3 (4.00-5.60) 05/26/19 10:15 Hgb 12.5 GM/dL (11.7-16.9) 05/26/19 10:15 Hct 37.9 % (35.4-49) D 05/26/19 10:15 MCV 94.7 fl (80-96) 05/26/19 10:15 MCHC 33.0 g/dl (32.0-35.9) 05/26/19 10:15 RDW 14.0 % (11.9-15.9) 05/26/19 10:15 Plt Count 361 K/MM3 (134-434) 05/26/19 10:15 MPV 7.6 fl (7.5-11.1) 05/26/19 10:15 CMP Sodium 141 mmol/L (136-145) 05/26/19 05:38 Potassium 4.6 mmol/L (3.5-5.1) 05/26/19 05:38 Chloride 107 mmol/L (98-107) 05/26/19 05:38 Carbon Dioxide 32 mmol/L (21-32) 05/26/19 05:38 Anion Gap 2 MMOL/L (8-16) L 05/26/19 05:38 BUN 23.8 mg/dL (7-18) H 05/26/19 05:38 Creatinine 0.7 mg/dL (0.55-1.3) 05/26/19 05:38 Random Glucose 176 mg/dL (74-106) H 05/26/19 05:38 Calcium 7.7 mg/dL (8.5-10.1) L 05/26/19 05:38 Total Bilirubin 0.4 mg/dL (0.2-1) 05/25/19 05:53 AST 11 U/L (15-37) L 05/25/19 05:53 ALT 19 U/L (13-61) 05/25/19 05:53 Alkaline Phosphatase 55 U/L (45-117) 05/25/19 05:53 Total Protein 5.7 g/dl (6.4-8.2) L 05/25/19 05:53 Albumin 3.3 g/dl (3.4-5.0) L 05/25/19 05:53 CARDIAC ENZYMES Creatine Kinase 132 U/L (26-308) 05/25/19 05:53 Troponin I < 0.02 ng/ml (0.00-0.05) 05/23/19 05:00 Home Medications Medication Instructions Recorded Alprazolam [Xanax] 0 mg PO PRN PRN 03/28/13 Cetirizine HCl [Zyrtec -] 10 mg PO PRN PRN 03/28/13 Naproxen [Naprosyn] 500 mg PO BID PRN #20 tablet 03/28/13 Simvastatin [Zocor -] 0 mg PO HS 03/28/13 Albuterol Sulfate [Proair Hfa] 8.5 gm IH PRN PRN 05/23/19 Duloxetine HCl [Cymbalta -] 60 mg PO DAILY 05/23/19 Fluticasone/Salmeterol [Advair 1 each IH BID 05/23/19 250-50 Diskus] Montelukast Na [Singulair -] 10 mg PO HS 05/23/19 Simvastatin 40 mg PO DAILY 05/23/19 Laboratory Tests 05/23/19 05/23/19 05/23/19 04:45 05:00 07:48 ABG pH 7.11 L* 7.14 L* ABG pCO2 at Pt Temp 85.8 H* 78.4 H* ABG pO2 at Pt Temp 482 H 79 L ABG HCO3 25.7 25.7 Opiates Screen Negative Methadone Screen Negative Barbiturate Screen Negative Phencyclidine Screen Negative Ur Amphetamines Screen Negative MDMA (Ecstasy) Screen Negative Benzodiazepines Screen Positive A* Cocaine Screen Positive A* U Marijuana (THC) Screen Positive A* Current Medications Generic Name Dose Route Start Last Admin Trade Name Freq PRN Reason Stop Dose Admin Acetaminophen 1,000 mg 05/24/19 21:39 05/25/19 20:45 Ofirmev Injection - IVPB 1,000 mg Q6H PRN Administration FEVER Albuterol Sulfate 1 amp 05/23/19 06:03 Ventolin 0.042trength) - NEB RQID PRN Dyspnea Albuterol/Ipratropium 1 amp 05/23/19 09:15 05/26/19 16:29 Duoneb - NEB 1 amp RQ4H HUSSEIN Administration Albuterol/Ipratropium 1 amp 05/24/19 22:45 Duoneb - NEB Q4H PRN SHORTNESS OF BREATH Chlorhexidine Gluconate 1 applic 05/23/19 22:00 05/25/19 21:11 Hibiclens For Decolonization - TP 1 applic HS HUSSEIN Administration Heparin Sodium (Porcine) 5,000 unit 05/23/19 14:00 05/26/19 13:42 Heparin - SQ 5,000 unit TID HUSSEIN Administration Propofol 1,000,000 mcg in 100 mls @ 8.369 mls/hr 05/23/19 03:30 05/26/19 03: 30 Diprivan - IVPB 50 mcg/kg/min TITR HUSSEIN 27.896 mls/hr Administration Protocol 15 MCG/KG/MIN Midazolam HCl 100 mg/ Sodium 100 mls @ 1 mls/hr 05/23/19 06:00 05/25/19 23:26 Chloride IVPB 10 mg/hr TITR HUSSEIN 10 mls/hr Administration Protocol 1 MG/HR Azithromycin 500 mg in 250 mls @ 250 mls/hr 05/23/19 11:00 05/26/19 09:01 Zithromax 500mg Ivpb (Pre-Docked) IVPB 250 mls/hr DAILY HUSSEIN Administration Ceftriaxone Sodium 2 gm/ 100 mls @ 200 mls/hr 05/23/19 15:00 05/26/19 09:00 Dextrose IVPB 200 mls/hr DAILY HUSSEIN Administration Protocol Fentanyl 500 mcg/ Dextrose 100 mls @ 5 mls/hr 05/24/19 11:45 05/25/19 12:00 IVPB 50 mcg/hr TITR HUSSEIN 10 mls/hr Administration 25 MCG/HR Sodium Chloride 1,000 mls @ 150 mls/hr 05/25/19 09:45 05/26/19 10:00 Normal Saline - IV 150 mls/hr ASDIR HUSSEIN Administration Dexmedetomidine HCl 200 mcg/ 50 mls @ 3.95 mls/hr 05/26/19 15:15 05/26/19 15: 30 Sodium Chloride IVPB 0.2 mcg/kg/hr TITR HUSSEIN 3.95 mls/hr Administration 0.2 MCG/KG/HR Methylprednisolone Sodium Succinate 60 mg 05/23/19 09:00 05/26/19 15:06 Solu-Medrol - IVPUSH 60 mg Q6H-IV HUSSEIN Administration Metoprolol Tartrate 5 mg 05/25/19 18:27 Lopressor Injection - IVPUSH Q4H PRN TACHYCARDIA (HR > 120) Mupirocin 1 applic 05/23/19 10:00 05/26/19 09:01 Bactroban Ointment (For Decolonization) - NS 05/28/19 09:59 1 applic BID HUSSEIN Administration Pantoprazole Sodium 40 mg 05/23/19 15:00 05/26/19 09:01 Protonix Iv IVPUSH 40 mg DAILY HUSSEIN Administration ABG Results ABG pH 7.37 (7.35-7.45) 05/26/19 06:20 ABG pCO2 at Pt Temp 44.2 mmHg (35-45) 05/26/19 06:20 ABG pO2 at Pt Temp 97.6 mmHg (80-100) 05/26/19 06:20 ABG HCO3 24.7 mmol/L (22-27) 05/26/19 06:20 ABG O2 Sat (Measured) 95.1 % (95-98) 05/26/19 06:20 ABG O2 Content 14.0 % vol 05/26/19 06:20 ABG Base Excess -0.2 meq/l (-2-2) 05/26/19 06:20 Microbiology 05/23/19 05:11 Blood - Peripheral Venous Blood Culture - Preliminary NO GROWTH OBTAINED AFTER 96 HOURS, INCUBATION TO CONTINUE FOR 1 DAYS. 05/23/19 05:15 Blood - Peripheral Venous Blood Culture - Preliminary NO GROWTH OBTAINED AFTER 96 HOURS, INCUBATION TO CONTINUE FOR 1 DAYS. 05/23/19 17:16 Sputum - Endotrachea Suction/Ventilator Gram Stain - Final 05/23/19 17:16 Sputum - Endotrachea Suction/Ventilator Sputum Culture - Final Moraxella (Bran.) Catarrhalis 05/23/19 05:00 Urine - Urine Lopes Urine Culture - Final NO GROWTH OBTAINED 05/23/19 12:10 Urine For Antigen Detection Legionella Antigen - Final 05/23/19 12:10 Urine For Antigen Detection Streptococcus pneumoniae Antigen (M - Final CXR: nodular density/granuloma in the peripheral left lung field. mediastinum is not widened, An ET-tube is present with its tip at the level of clavicular heads, there is no sign of infiltrate or failure. The bones and soft tissues intact. ASSESSMENT AND PLAN: Patient is a 49 yo male with PMHx of Asthma , HLD and Anxiety, polysubstance abuse presented to [facility] for having severe shortness of breath s/p intubation due to having respiratory failure, patient was transferred to [facility] overnight for further care and evaluation. # Acute respiratory failure s/p extubation today( patient self extubated himself ) : Neb treatments, solu medrol 60mg iv q8 continue, further care per ICU team . # Acute asthma exacerbation multifactorial:s/p intubation now extubated continue nebs, solumedrol IV, antibiotics #Polysubstance dependency (Marijuana and cocaine) : detox consult # Leukocytosis possible aspiration Pneumonia: Blue cx,s/p zosyn , as per ID to continue with renard/zithro , antigen for legienella and strep. negative. ID consult Dr. miller appreciated DVt px: heaprin
[2019-05-26] MEDS: CHLORHEXIDINE GLUCONATE 4% CLEANSER FOR DECOLONIZATION TP SCH (21:23)
--- NOTE | 2019-05-26 21:41 | PN ---
Progress Note, Physician History of Present Illness: EXTUBATED CONFUSED BREATHING NON LABORED - Current Medication List Current Medications: Active Medications Acetaminophen (Ofirmev Injection -) 1,000 mg IVPB Q6H PRN PRN Reason: FEVER Last Admin: 05/25/19 20:45 Dose: 1,000 mg Albuterol Sulfate (Ventolin 0.042trength) -) 1 amp NEB RQID PRN PRN Reason: Dyspnea Albuterol/Ipratropium (Duoneb -) 1 amp NEB RQ4H HUSSEIN Last Admin: 05/26/19 16:29 Dose: 1 amp Albuterol/Ipratropium (Duoneb -) 1 amp NEB Q4H PRN PRN Reason: SHORTNESS OF BREATH Chlorhexidine Gluconate (Hibiclens For Decolonization -) 1 applic TP HS HUSSEIN Last Admin: 05/26/19 21:23 Dose: 1 applic Heparin Sodium (Porcine) (Heparin -) 5,000 unit SQ TID HUSSEIN Last Admin: 05/26/19 21:22 Dose: 5,000 unit Propofol (Diprivan -) 1,000,000 mcg in 100 mls @ 8.369 mls/hr IVPB TITR HUSSEIN; Protocol Last Admin: 05/26/19 03:30 Dose: 50 mcg/kg/min, 27.896 mls/hr Midazolam HCl 100 mg/ Sodium (Chloride) 100 mls @ 1 mls/hr IVPB TITR HUSSEIN; Protocol Last Admin: 05/25/19 23:26 Dose: 10 mg/hr, 10 mls/hr Azithromycin (Zithromax 500mg Ivpb (Pre-Docked)) 500 mg in 250 mls @ 250 mls/ hr IVPB DAILY HUSSEIN Last Admin: 05/26/19 09:01 Dose: 250 mls/hr Ceftriaxone Sodium 2 gm/ (Dextrose) 100 mls @ 200 mls/hr IVPB DAILY HUSSEIN; Protocol Last Admin: 05/26/19 09:00 Dose: 200 mls/hr Fentanyl 500 mcg/ Dextrose 100 mls @ 5 mls/hr IVPB TITR HUSSEIN Last Admin: 05/25/19 12:00 Dose: 50 mcg/hr, 10 mls/hr Sodium Chloride (Normal Saline -) 1,000 mls @ 150 mls/hr IV ASDIR HUSSEIN Last Admin: 05/26/19 10:00 Dose: 150 mls/hr Dexmedetomidine HCl 200 mcg/ (Sodium Chloride) 50 mls @ 3.95 mls/hr IVPB TITR HUSSEIN Last Infusion: 05/26/19 21:23 Dose: 0.5 mcg/kg/hr, 9.89 mls/hr Methylprednisolone Sodium Succinate (Solu-Medrol -) 60 mg IVPUSH Q6H-IV HUSSEIN Last Admin: 05/26/19 21:22 Dose: 60 mg Metoprolol Tartrate (Lopressor Injection -) 5 mg IVPUSH Q4H PRN PRN Reason: TACHYCARDIA (HR > 120) Mupirocin (Bactroban Ointment (For Decolonization) -) 1 applic NS BID [facility] Stop: 05/28/19 09:59 Last Admin: 05/26/19 21:22 Dose: 1 applic Pantoprazole Sodium (Protonix Iv) 40 mg IVPUSH DAILY [facility] Last Admin: 05/26/19 09:01 Dose: 40 mg - Objective Vital Signs: Vital Signs Temperature 99 F 05/26/19 12:00 Pulse Rate 104 H 05/26/19 18:00 Respiratory Rate 21 H 05/26/19 18:00 Blood Pressure 167/93 05/26/19 18:00 O2 Sat by Pulse Oximetry (%) 92 L 05/26/19 10:53 Constitutional: Yes: No Distress Eyes: Yes: Conjunctiva Clear Cardiovascular: Yes: Regular Rate and Rhythm, S1, S2 Respiratory: Yes: CTA Bilaterally Gastrointestinal: Yes: Normal Bowel Sounds, Soft Edema: No Labs: CBC, BMP 05/26/19 10:15 05/26/19 05:38 INR, PTT INR 1.03 (0.83-1.09) 05/24/19 05:35 Assessment/Plan ACUTE RESPIRATORY FAILURE S/P EXTUBATION ACUTE EXACERBATION ASTHMA R/O PNEUMONIA HX POLYSUBSTANCE USE CONTINUE EMPIRIC CEFTRIAXONE/ ZITHROMAX
[2019-05-27] MEDS: ALBUTEROL SO4 2.5/IPRATROPIUM 0.5 INH SOL 3 ML VIAL.NEB. NEB SCH ×6 (00:24→20:39)
[2019-05-27] MEDS: methylPREDNISolone NA SUCC 40 MG/1 ML VIAL IVPUSH SCH ×4 (03:14→21:16)
[2019-05-27] MEDS: DEXMEDETOMIDINE HCL 200 MCG in SODIUM CHLORIDE 48 ML IVPB SCH (03:30)
[2019-05-27] MEDS: SODIUM CHLORIDE 1,000 ML IV SCH (05:13)
[2019-05-27] MEDS: HEPARIN NA (PORCINE) 5,000 UNITS/ML 1ML VIAL SQ SCH ×3 (06:13→21:16)
[2019-05-27] MEDS: PROPOFOL 1,000,000 MCG/100 ML VIAL IVPB SCH (07:00)
[2019-05-27 07:02] LABS: BASO % 0.1 % (0-2.0); HEMATOCRIT 34.2 % (35.4-49); HEMOGLOBIN 11.5 GM/dL (11.7-16.9); LYMPH % 8.4 % (8-40); MCH 31.1 pg (25.7-33.7); MCHC 33.7 g/dl (32.0-35.9); MEAN CELL VOLUME 92.3 fl (80-96); MEAN PLT VOLUME 7.5 fl (7.5-11.1); MONO % 6.7 % (3.8-10.2); NEUT % 84.8 % (42.8-82.8); PLATELET COUNT 326 K/MM3 (134-434); RDW 13.1 % (11.9-15.9); WHITE BLOOD COUNT 13.1 K/mm3 (4.0-10.0)
[2019-05-27 07:47] LABS: ALBUMIN 3.3 g/dl (3.4-5.0); BILIRUBIN,TOTAL 0.6 mg/dL (0.2-1); BLOOD UREA NITROGEN 25.2 mg/dL (7-18); CALCIUM 8.2 mg/dL (8.5-10.1); CREATININE 0.7 mg/dL (0.55-1.3); MAGNESIUM 2.5 mg/dL (1.8-2.4); PHOSPHOROUS 2.8 mg/dL (2.5-4.9); POTASSIUM 3.8 mmol/L (3.5-5.1); TOT PROT 5.5 g/dl (6.4-8.2)
[2019-05-27] MEDS ORDERED: DEXTROSE 5%-WATER 100 ML IVPB ONE (10:34)
[2019-05-27] MEDS: CEFTRIAXONE 2 GM in DEXTROSE 5%-WATER 100 ML IVPB SCH (10:49)
[2019-05-27] MEDS: PANTOPRAZOLE SODIUM 40 MG VIAL IVPUSH SCH (10:50)
--- NOTE | 2019-05-27 11:37 | PN ---
Teaching Attending Note Name of Resident: Vadim Dawson ATTENDING PHYSICIAN STATEMENT I saw and evaluated the patient. I reviewed the resident's note and discussed the case with the resident. I agree with the resident's findings and plan as documented. SUBJECTIVE: Pt seen and examined in the ICU. On HFOT. Mental status slightly improved. OBJECTIVE: Vital Signs Period Temp Pulse Resp BP Sys/Christiansen Pulse Ox Last 24 Hr 98.8 F-99.2 F 85-106 15-22 148-167/82-103 94-95 Intake & Output 05/24/19 05/25/19 05/26/19 05/27/19 23:59 23:59 23:59 23:59 Intake Total 1993.8 4768 7307.4 1920 Output Total 2050 1200 3800 650 Balance -56.2 3568 3507.4 1270 Weight 77.02 kg 75.75 kg 79.152 kg 80.603 kg Gen: mildly tachypneic on HFOT, confused Heart: RRR Lung: decreased breath sounds at the bases Abd: soft, nontender Ext: no edema CBC, BMP 05/27/19 05:39 05/27/19 05:39 Active Medications Acetaminophen (Ofirmev Injection -) 1,000 mg IVPB Q6H PRN PRN Reason: FEVER Last Admin: 05/25/19 20:45 Dose: 1,000 mg Albuterol Sulfate (Ventolin 0.042trength) -) 1 amp NEB RQID PRN PRN Reason: Dyspnea Albuterol/Ipratropium (Duoneb -) 1 amp NEB RQ4H HUSSEIN Last Admin: 05/27/19 07:50 Dose: 1 amp Albuterol/Ipratropium (Duoneb -) 1 amp NEB Q4H PRN PRN Reason: SHORTNESS OF BREATH Chlorhexidine Gluconate (Hibiclens For Decolonization -) 1 applic TP HS HUSSEIN Last Admin: 05/26/19 21:23 Dose: 1 applic Heparin Sodium (Porcine) (Heparin -) 5,000 unit SQ TID HUSSEIN Last Admin: 05/27/19 06:13 Dose: 5,000 unit Azithromycin (Zithromax 500mg Ivpb (Pre-Docked)) 500 mg in 250 mls @ 250 mls/ hr IVPB DAILY [facility] Last Admin: 05/26/19 09:01 Dose: 250 mls/hr Ceftriaxone Sodium 2 gm/ (Dextrose) 100 mls @ 200 mls/hr IVPB DAILY HUSSEIN; Protocol Last Admin: 05/27/19 10:49 Dose: 200 mls/hr Methylprednisolone Sodium Succinate (Solu-Medrol -) 60 mg IVPUSH Q6H-IV HUSSEIN Last Admin: 05/27/19 10:49 Dose: 60 mg Metoprolol Tartrate (Lopressor Injection -) 5 mg IVPUSH Q4H PRN PRN Reason: TACHYCARDIA (HR > 120) Mupirocin (Bactroban Ointment (For Decolonization) -) 1 applic NS BID HUSSEIN Stop: 05/28/19 09:59 Last Admin: 05/26/19 21:22 Dose: 1 applic Pantoprazole Sodium (Protonix Iv) 40 mg IVPUSH DAILY [facility] Last Admin: 05/27/19 10:50 Dose: 40 mg ASSESSMENT AND PLAN: Acute Bronchospasm/Status Asthmaticus Polysubstance Abuse r/o Pneumonia Anxiety Hyperlipidemia - continue medrol - inhaled bronchodilators standing and PRN - precedex as needed - continue antibiotics - aspiration precautions - taper HFOT to keep SpO2 >90% - DVT/GI prophylaxis - continue ICU monitoring critical care time spent in reviewing chart, evaluating patient and formulating plan 35 min
[2019-05-27] MEDS: AZITHROMYCIN IVPB 500 MG/250 ML BAG IVPB SCH (12:21)
[2019-05-27] MEDS: MUPIROCIN 2% TOPICAL OINTMENT FOR DECOLONIZATION NS SCH ×2 (12:34→22:30)
--- NOTE | 2019-05-27 13:10 | PN ---
Physical Exam: SUBJECTIVE: Patient seen and examined. He is non-verbal. OBJECTIVE: Vital Signs Period Temp Pulse Resp BP Sys/Christiansen Pulse Ox Last 24 Hr 98.8 F-99.2 F 85-104 15-22 148-167/82-103 94-95 GENERAL: Sleepy, but arousable, incoherent speech HEAD: Normal with no signs of trauma. EYES: PERRL, bilateral subconjunctival hemorrhages inferiorly ENT: Ears normal, nares patent, moist mucous membranes. NECK: Trachea midline, full range of motion, supple. LUNGS: Clear to auscultation bilaterally, no wheezes. HEART: Regular rate and rhythm, no murmur. ABDOMEN: Soft, nontender, nondistended, normoactive bowel sounds EXTREMITIES: Warm, well-perfused, non-pitting edema in all extremities, slightly more in right hand NEUROLOGICAL: Cannot fully assess. PSYCH: Cannot fully assess. SKIN: Warm, dry, normal turgor Laboratory Results - last 24 hr 05/27/19 05/27/19 05:39 05:39 WBC 13.1 H RBC 3.70 L Hgb 11.5 L Hct 34.2 L MCV 92.3 MCH 31.1 MCHC 33.7 RDW 13.1 Plt Count 326 MPV 7.5 Absolute Neuts (auto) 11.1 H Neutrophils % 84.8 H Lymphocytes % 8.4 D Monocytes % 6.7 Eosinophils % 0.0 Basophils % 0.1 Nucleated RBC % 0 Sodium 142 Potassium 3.8 Chloride 110 H Carbon Dioxide 27 Anion Gap 6 L BUN 25.2 H Creatinine 0.7 Est GFR (CKD-EPI)AfAm 127.53 Est GFR (CKD-EPI)NonAf 110.04 Random Glucose 152 H Calcium 8.2 L Phosphorus 2.8 Magnesium 2.5 H Total Bilirubin 0.6 AST 72 H ALT 44 Alkaline Phosphatase 51 Total Protein 5.5 L Albumin 3.3 L Active Medications Generic Name Dose Route Start Last Admin Trade Name Freq PRN Reason Stop Dose Admin Acetaminophen 1,000 mg 05/24/19 21:39 05/25/19 20:45 Ofirmev Injection - IVPB 1,000 mg Q6H PRN Administration FEVER Albuterol Sulfate 1 amp 05/23/19 06:03 Ventolin 0.042trength) - NEB RQID PRN Dyspnea Albuterol/Ipratropium 1 amp 05/23/19 09:15 05/27/19 12:16 Duoneb - NEB 1 amp RQ4H HUSSEIN Administration Albuterol/Ipratropium 1 amp 05/24/19 22:45 Duoneb - NEB Q4H PRN SHORTNESS OF BREATH Chlorhexidine Gluconate 1 applic 05/23/19 22:00 05/26/19 21:23 Hibiclens For Decolonization - TP 1 applic HS HUSSEIN Administration Heparin Sodium (Porcine) 5,000 unit 05/23/19 14:00 05/27/19 06:13 Heparin - SQ 5,000 unit TID HUSSEIN Administration Azithromycin 500 mg in 250 mls @ 250 mls/hr 05/23/19 11:00 05/27/19 12:21 Zithromax 500mg Ivpb (Pre-Docked) IVPB 250 mls/hr DAILY HUSSEIN Administration Ceftriaxone Sodium 2 gm/ 100 mls @ 200 mls/hr 05/23/19 15:00 05/27/19 10:49 Dextrose IVPB 200 mls/hr DAILY HUSSEIN Administration Protocol Methylprednisolone Sodium Succinate 60 mg 05/23/19 09:00 05/27/19 10:49 Solu-Medrol - IVPUSH 60 mg Q6H-IV HUSSEIN Administration Metoprolol Tartrate 5 mg 05/25/19 18:27 Lopressor Injection - IVPUSH Q4H PRN TACHYCARDIA (HR > 120) Mupirocin 1 applic 05/23/19 10:00 05/27/19 12:34 Bactroban Ointment (For Decolonization) - NS 05/28/19 09:59 1 applic BID HUSSEIN Administration Pantoprazole Sodium 40 mg 05/23/19 15:00 05/27/19 10:50 Protonix Iv IVPUSH 40 mg DAILY HUSSEIN Administration ASSESSMENT/PLAN: Mr. Fraga is a 49 y/o male with history of HLD, anxiety, and asthma who initially presented to [facility] due to shortness of breath. He was found to be in respiratory failure and was intubated and put on ventilator. #acute hypoxic hypercapneic respiratory failure, improved #asthma Currently off ventilator but confused. ABG yesterday WNL. Head CT today negative for hemorrhage or ischemia. CXR today negative. -sputum cx positive for moraxella -Legionella and pneumococcus negative -prelim blood cx negative -solumedrol 60mg Q6H -duoneb Q4H -zithromax 500mg (start 05/23) -rocephin 2g (start 05/23) -ID following -lopressor PRN tachycardia #substance use disorder urine tox positive for cocaine, marijuana, and BZD at admission GI Ppx Protonix DVT Ppx heparin FEN monitor labs NPO Visit type - Emergency Visit Emergency Visit: Yes ED Registration Date: 05/23/19 Care time: The patient presented to the Emergency Department on the above date and was hospitalized for further evaluation of their emergent condition. - New Patient This patient is new to me today: No - Critical Care Critical Care patient: Yes Total Critical Care Time (in minutes): 35 Critical Care Statement: The care of this patient involved high complexity decision making to prevent further life threatening deterioration of the patient 's condition and/or to evaluate & treat vital organ system(s) failure or risk of failure. - Discharge Referral Referred to [facility] Med [facility].C[facility] No ATTENDING PHYSICIAN STATEMENT I saw and evaluated the patient. I reviewed the resident's note and discussed the case with the resident. I agree with the resident's findings and plan as documented. SUBJECTIVE: OBJECTIVE: ASSESSMENT AND PLAN:
[2019-05-27 14:43] VITALS: BMI 24.0
--- NOTE | 2019-05-27 16:59 | PN ---
Physical Exam: SUBJECTIVE: Patient seen and examined by the bedside. Follows instruction, but has difficulty forming words. Extubated yesterday. OBJECTIVE: Vital Signs Period Temp Pulse Resp BP Sys/Christiansen Pulse Ox Last 24 Hr 98.4 F-99.2 F 85-104 15-22 142-167/82-96 94-95 GENERAL: Follows instruction, but has difficulty forming words. Appears drowsy HEAD: Normal with no signs of trauma. EYES: SOFI, EOMI EARS, NOSE, THROAT: Ears normal, nares patent, oropharynx clear without exudates. Moist mucous membranes. LUNGS: Clear breath sounds B/L HEART: RRR ABDOMEN: Soft, not distended, normoactive bowel sounds LOWER EXTREMITIES: 2+ pulses, no edema, no calf tenderness NEUROLOGICAL: Follows instruction, but has difficulty forming words. Appears drowsy SKIN: Warm, diaphoretic, normal turgor CBC, BMP 05/27/19 05:39 05/27/19 05:39 Current Medications Acetaminophen (Ofirmev Injection -) 1,000 mg IVPB Q6H PRN PRN Reason: FEVER Last Admin: 05/25/19 20:45 Dose: 1,000 mg Albuterol Sulfate (Ventolin 0.042trength) -) 1 amp NEB RQID PRN PRN Reason: Dyspnea Albuterol/Ipratropium (Duoneb -) 1 amp NEB RQ4H HUSSEIN Last Admin: 05/27/19 16:15 Dose: 1 amp Albuterol/Ipratropium (Duoneb -) 1 amp NEB Q4H PRN PRN Reason: SHORTNESS OF BREATH Chlorhexidine Gluconate (Hibiclens For Decolonization -) 1 applic TP HS HUSSEIN Last Admin: 05/26/19 21:23 Dose: 1 applic Heparin Sodium (Porcine) (Heparin -) 5,000 unit SQ TID HUSSEIN Last Admin: 05/27/19 16:13 Dose: 5,000 unit Azithromycin (Zithromax 500mg Ivpb (Pre-Docked)) 500 mg in 250 mls @ 250 mls/ hr IVPB DAILY [facility] Last Admin: 05/27/19 12:21 Dose: 250 mls/hr Ceftriaxone Sodium 2 gm/ (Dextrose) 100 mls @ 200 mls/hr IVPB DAILY [facility]; Protocol Last Admin: 05/27/19 10:49 Dose: 200 mls/hr Methylprednisolone Sodium Succinate (Solu-Medrol -) 60 mg IVPUSH Q6H-IV HUSSEIN Last Admin: 05/27/19 16:14 Dose: 60 mg Metoprolol Tartrate (Lopressor Injection -) 5 mg IVPUSH Q4H PRN PRN Reason: TACHYCARDIA (HR > 120) Mupirocin (Bactroban Ointment (For Decolonization) -) 1 applic NS BID [facility] Stop: 05/28/19 09:59 Last Admin: 05/27/19 12:34 Dose: 1 applic Pantoprazole Sodium (Protonix Iv) 40 mg IVPUSH DAILY [facility] Last Admin: 05/27/19 10:50 Dose: 40 mg ASSESSMENT/PLAN: 49M PMH of Asthma (on Advair, Proair, and Singulair at home), HLD and Anxiety. Presented to [facility] 05/23 with worsening SOB despite Ventolin and Nebulizer. Was found to have O2 42%, received SoluMedrol 125mg and duonebs with no improvement , decision was made to intubate. Intubated 05/23, extubated 05/26. #Neurology - Appears drowsy, follows instructions. - Precedex D/Yanick - CT head performed today, showed no masses, hemorrhage - AOx3 at baseline with no focal deficits #Pulmonology - CXR 05/27: No acute pathology - Rt femoral arterial line placed 05/23 - Solumedrol 60 mg Q6, Duonebs - Terbutaline D/Yanick #ID - WBC 13.1, afebrile - Ceftriaxone 2gm, Azythromycin 500mg for suspected pneumonia started 05/23 as per ID, received Zosyn 1x overnight - Sputum cx: Moraxella Catarrhalis, BCx pending - ID (Dr. Mott) on board #[facility] - denies any PMHx. or Family Hx. of any chronic medical conditions - Hx of HTN: Lopressor 5mg IV PRN for HTN, may use4 labetalol/hydralazine IV for BP - Cardiac monitoring #GI - OGT removed - Currently NPO due to AMS, will order speech eval #Renal - Lopes placed - UA: Protein 1+ - UTox positive for Marijuana, cocaine, benzos #FEN - Fluids D/Yanick - Phos 3.9, mg 2.8 - NPO pending speech eval #Prophylaxis - Hep 5000 SQ TID - Protonix 40mg IV #Dispo - Monitor in ICU post extubation Visit type - Emergency Visit Emergency Visit: Yes ED Registration Date: 05/23/19 Care time: The patient presented to the Emergency Department on the above date and was hospitalized for further evaluation of their emergent condition. - New Patient This patient is new to me today: No - Critical Care Critical Care patient: Yes Total Critical Care Time (in minutes): 38 Critical Care Statement: The care of this patient involved high complexity decision making to prevent further life threatening deterioration of the patient 's condition and/or to evaluate & treat vital organ system(s) failure or risk of failure. ATTENDING PHYSICIAN STATEMENT I saw and evaluated the patient. I reviewed the resident's note and discussed the case with the resident. I agree with the resident's findings and plan as documented. SUBJECTIVE: OBJECTIVE: ASSESSMENT AND PLAN:
--- NOTE | 2019-05-27 17:05 | PN ---
Teaching Attending Note Name of Resident: Audrey Salas ATTENDING PHYSICIAN STATEMENT I saw and evaluated the patient. I reviewed the resident's note and discussed the case with the resident. I agree with the resident's findings and plan as documented. SUBJECTIVE: Patient is extubated on high flow oxygen. able to answer to some questions, father and brother at bed side. Vital Signs Temperature 98.4 F 05/27/19 14:00 Pulse Rate 90 05/27/19 16:00 Respiratory Rate 16 05/27/19 16:00 Blood Pressure 145/93 05/27/19 16:00 O2 Sat by Pulse Oximetry (%) 95 05/27/19 09:00 GENERAL: The patient is extubated now,on 100%NR HEAD: Normal with no signs of trauma. EYES: sclera anicteric, subconjunctival hemorrhage b/l. reactive ENT: Ears normal,neck is supple NECK: Trachea midline. LUNGS:decreased air entery bl , no wheezes, no crackles. HEART: tachy, S1, S2 positive, no murmur, rub or gallop. ABDOMEN: Soft, Nt, ND, normoactive bowel sounds, no guarding, no rebound, no hepatosplenomegaly, no masses. EXTREMITIES: 2+ pulses, warm, well-perfused, + edema 1+ NEUROLOGICAL: Cranial nerves II through XII grossly intact. SKIN: Warm, dry, normal turgor, no rashes or lesions noted CBCD WBC 13.1 K/mm3 (4.0-10.0) H 05/27/19 05:39 RBC 3.70 M/mm3 (4.00-5.60) L 05/27/19 05:39 Hgb 11.5 GM/dL (11.7-16.9) L 05/27/19 05:39 Hct 34.2 % (35.4-49) L 05/27/19 05:39 MCV 92.3 fl (80-96) 05/27/19 05:39 MCHC 33.7 g/dl (32.0-35.9) 05/27/19 05:39 RDW 13.1 % (11.9-15.9) 05/27/19 05:39 Plt Count 326 K/MM3 (134-434) 05/27/19 05:39 MPV 7.5 fl (7.5-11.1) 05/27/19 05:39 CMP Sodium 142 mmol/L (136-145) 05/27/19 05:39 Potassium 3.8 mmol/L (3.5-5.1) 05/27/19 05:39 Chloride 110 mmol/L (98-107) H 05/27/19 05:39 Carbon Dioxide 27 mmol/L (21-32) 05/27/19 05:39 Anion Gap 6 MMOL/L (8-16) L 05/27/19 05:39 BUN 25.2 mg/dL (7-18) H 05/27/19 05:39 Creatinine 0.7 mg/dL (0.55-1.3) 05/27/19 05:39 Random Glucose 152 mg/dL (74-106) H 05/27/19 05:39 Calcium 8.2 mg/dL (8.5-10.1) L 05/27/19 05:39 Total Bilirubin 0.6 mg/dL (0.2-1) 05/27/19 05:39 AST 72 U/L (15-37) H 05/27/19 05:39 ALT 44 U/L (13-61) 05/27/19 05:39 Alkaline Phosphatase 51 U/L (45-117) 05/27/19 05:39 Total Protein 5.5 g/dl (6.4-8.2) L 05/27/19 05:39 Albumin 3.3 g/dl (3.4-5.0) L 05/27/19 05:39 CARDIAC ENZYMES Creatine Kinase 132 U/L (26-308) 05/25/19 05:53 Troponin I < 0.02 ng/ml (0.00-0.05) 05/23/19 05:00 Current Medications Generic Name Dose Route Start Last Admin Trade Name Freq PRN Reason Stop Dose Admin Acetaminophen 1,000 mg 05/24/19 21:39 05/25/19 20:45 Ofirmev Injection - IVPB 1,000 mg Q6H PRN Administration FEVER Albuterol Sulfate 1 amp 05/23/19 06:03 Ventolin 0.042trength) - NEB RQID PRN Dyspnea Albuterol/Ipratropium 1 amp 05/23/19 09:15 05/27/19 16:15 Duoneb - NEB 1 amp RQ4H HUSSEIN Administration Albuterol/Ipratropium 1 amp 05/24/19 22:45 Duoneb - NEB Q4H PRN SHORTNESS OF BREATH Chlorhexidine Gluconate 1 applic 05/23/19 22:00 05/26/19 21:23 Hibiclens For Decolonization - TP 1 applic HS HUSSEIN Administration Heparin Sodium (Porcine) 5,000 unit 05/23/19 14:00 05/27/19 16:13 Heparin - SQ 5,000 unit TID HUSSEIN Administration Azithromycin 500 mg in 250 mls @ 250 mls/hr 05/23/19 11:00 05/27/19 12:21 Zithromax 500mg Ivpb (Pre-Docked) IVPB 250 mls/hr DAILY HUSSEIN Administration Ceftriaxone Sodium 2 gm/ 100 mls @ 200 mls/hr 05/23/19 15:00 05/27/19 10:49 Dextrose IVPB 200 mls/hr DAILY HUSSEIN Administration Protocol Methylprednisolone Sodium Succinate 60 mg 05/23/19 09:00 05/27/19 16:14 Solu-Medrol - IVPUSH 60 mg Q6H-IV HUSSEIN Administration Metoprolol Tartrate 5 mg 05/25/19 18:27 Lopressor Injection - IVPUSH Q4H PRN TACHYCARDIA (HR > 120) Mupirocin 1 applic 05/23/19 10:00 05/27/19 12:34 Bactroban Ointment (For Decolonization) - NS 05/28/19 09:59 1 applic BID HUSSEIN Administration Pantoprazole Sodium 40 mg 05/23/19 15:00 05/27/19 10:50 Protonix Iv IVPUSH 40 mg DAILY HUSSEIN Administration Laboratory Tests 05/23/19 05/23/19 05/23/19 04:45 05:00 07:48 ABG pH 7.11 L* 7.14 L* ABG pCO2 at Pt Temp 85.8 H* 78.4 H* ABG pO2 at Pt Temp 482 H 79 L ABG HCO3 25.7 25.7 Opiates Screen Negative Methadone Screen Negative Barbiturate Screen Negative Phencyclidine Screen Negative Ur Amphetamines Screen Negative MDMA (Ecstasy) Screen Negative Benzodiazepines Screen Positive A* Cocaine Screen Positive A* U Marijuana (THC) Screen Positive A* ABG pH 7.37 (7.35-7.45) 05/26/19 06:20 ABG pCO2 at Pt Temp 44.2 mmHg (35-45) 05/26/19 06:20 ABG pO2 at Pt Temp 97.6 mmHg (80-100) 05/26/19 06:20 ABG HCO3 24.7 mmol/L (22-27) 05/26/19 06:20 ABG O2 Sat (Measured) 95.1 % (95-98) 05/26/19 06:20 ABG O2 Content 14.0 % vol 05/26/19 06:20 ABG Base Excess -0.2 meq/l (-2-2) 05/26/19 06:20 Microbiology 05/23/19 05:11 Blood - Peripheral Venous Blood Culture - Preliminary NO GROWTH OBTAINED AFTER 96 HOURS, INCUBATION TO CONTINUE FOR 1 DAYS. 05/23/19 05:15 Blood - Peripheral Venous Blood Culture - Preliminary NO GROWTH OBTAINED AFTER 96 HOURS, INCUBATION TO CONTINUE FOR 1 DAYS. 05/23/19 17:16 Sputum - Endotrachea Suction/Ventilator Gram Stain - Final 05/23/19 17:16 Sputum - Endotrachea Suction/Ventilator Sputum Culture - Final Moraxella (Bran.) Catarrhalis 05/23/19 05:00 Urine - Urine Lopes Urine Culture - Final NO GROWTH OBTAINED 05/23/19 12:10 Urine For Antigen Detection Legionella Antigen - Final 05/23/19 12:10 Urine For Antigen Detection Streptococcus pneumoniae Antigen (M - Final CXR: nodular density/granuloma in the peripheral left lung field. mediastinum is not widened, An ET-tube is present with its tip at the level of clavicular heads, there is no sign of infiltrate or failure. The bones and soft tissues intact. ASSESSMENT AND PLAN: Patient is a 49 yo male with PMHx of Asthma , HLD and Anxiety, polysubstance abuse presented to [facility] for having severe shortness of breath s/p intubation due to having respiratory failure, patient was transferred to [facility] overnight for further care and evaluation. # Acute respiratory failure s/p extubation today( patient self extubated himself ) : Neb treatments, solu medrol 60mg iv q8 continue, further care per ICU team . on High flow oxygen now # Acute asthma exacerbation multifactorial:s/p intubation now extubated continue nebs, solumedrol IV, antibiotics #Polysubstance dependency (Marijuana and cocaine) : detox consult # acute Pneumonia: continue renard/zithro , antigen for legienella and strep. negative. ID consult Dr. miller appreciated DVt px: heparin
[2019-05-27] MEDS ORDERED: DEXMEDETOMIDINE HCL 200 MCG in SODIUM CHLORIDE 48 ML IVPB SCH (21:45)
[2019-05-27] MEDS: CHLORHEXIDINE GLUCONATE 4% CLEANSER FOR DECOLONIZATION TP SCH (22:30)
[2019-05-28] MEDS: ALBUTEROL SO4 2.5/IPRATROPIUM 0.5 INH SOL 3 ML VIAL.NEB. NEB SCH ×5 (00:30→20:00)
[2019-05-28] MEDS ORDERED: hydrALAZINE HCL 20 MG/ML VIAL IVPUSH PRN (02:03)
[2019-05-28] MEDS: methylPREDNISolone NA SUCC 40 MG/1 ML VIAL IVPUSH SCH ×2 (03:15→10:05)
[2019-05-28] MEDS: HEPARIN NA (PORCINE) 5,000 UNITS/ML 1ML VIAL SQ SCH ×3 (05:58→23:41)
[2019-05-28 06:42] LABS: BASO % 0.1 % (0-2.0); HEMATOCRIT 41.9 % (35.4-49); HEMOGLOBIN 14.1 GM/dL (11.7-16.9); LYMPH % 5.8 % (8-40); MCHC 33.7 g/dl (32.0-35.9); MEAN CELL VOLUME 92.1 fl (80-96); MEAN PLT VOLUME 8.2 fl (7.5-11.1); MONO % 5.9 % (3.8-10.2); NEUT % 88.2 % (42.8-82.8); PLATELET COUNT 356 K/MM3 (134-434); RBC 4.55 M/mm3 (4.00-5.60); RDW 13.2 % (11.9-15.9); WHITE BLOOD COUNT 17.8 K/mm3 (4.0-10.0)
[2019-05-28 07:32] LABS: ALBUMIN 3.6 g/dl (3.4-5.0); BILIRUBIN,TOTAL 0.9 mg/dL (0.2-1); BLOOD UREA NITROGEN 19.8 mg/dL (7-18); CALCIUM 8.7 mg/dL (8.5-10.1); CREATININE 0.6 mg/dL (0.55-1.3); MAGNESIUM 2.3 mg/dL (1.8-2.4); PHOSPHOROUS 3.1 mg/dL (2.5-4.9); POTASSIUM 3.7 mmol/L (3.5-5.1); TOT PROT 6.3 g/dl (6.4-8.2)
[2019-05-28] MEDS ORDERED: DEXTROSE 5%-WATER 100 ML IVPB ONE (09:37)
[2019-05-28] MEDS: AZITHROMYCIN IVPB 500 MG/250 ML BAG IVPB SCH (10:05)
[2019-05-28] MEDS: CEFTRIAXONE 2 GM in DEXTROSE 5%-WATER 100 ML IVPB SCH (10:05)
[2019-05-28] MEDS: PANTOPRAZOLE SODIUM 40 MG VIAL IVPUSH SCH (10:06)
--- NOTE | 2019-05-28 10:33 | CONSULT ---
Admitting History and Physical - Primary Care Physician PCP: Álvaro Victor - Admission History of Present Illness: Per EMR-05/23- Pt is a 49 y/o M with a significant past medical history of HLD, Anxiety, and Asthma (on Advair, Proair, and Singulair at home) who initially presented to [facility] due to shortness of breath. Pt reportedly was sleeping when he abruptly became short of breath and was told to go to the ER at the behest of his . In the ER, pt was noted to desaturate on room air to 42%; pt was subsequently placed on a nonrebreather and administered duonebs. This was unsuccessful and pt was subsequently intubated in the ER. Pt was transferred to our [facility] ICU for continued care. Pt has never been intubated in the past. Per medical records, pt is an everyday marijuana smoker; unclear if vapes. Pt reportedly had a URI-like illness a few weeks ago but did not receive any antibiotics. PMH as above SocialHx- Everyday marijuana smoker, Cocaine use Extubated 05/26 Followed instruction, but had difficulty forming words. Head CT (-) 05/27-much more alert. Speech clearer w less delay. Occ has to pause and think of answer. Bedside dysphagia screening done. No coughing. Some ice chips po taken Started on reg diet/thin liquids with reported good tolerance Pt's reports that pt is right hand dominant, but now using left UE/hand more than right. He was restrained bilaterally. RUE improving but still weaker than left. 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 History - Admission Reason For Visit: RESPIRATORY FAILURE - Diagnostics X-ray: Report Reviewed CT Scan: Report Reviewed - General Mental Status: Alert and Oriented, Awake and Alert, Able to Follow Commands, Flat Affect Attention: Mild Impairment Ability to Follow Directions: Excellent Head/Neck Control: WFL - Hearing Hearing: Normal Speech Evaluation - Communication Primary Language: CHINESE Oral Expression Ability: Yes: Mild Impairment - Speech Production Able to Make Needs Known: Yes: WNL Intelligibility: Yes: Mildly Impaired - Speech Characteristics Voice Loudness: Mildly Soft/Quiet Voice Pitch: Yes: Normal Voice Phonatory-based Quality: Yes: Hoarse, Dysphonia (recent extubation.) Speech Clarity: < 100% Nasal Resonance: Normal Articulation: Yes: Precise (slow, reduced articulatory rate.) Rate of Speech: Too Slow - Language/Auditory Comprehension Follows: Yes: Complex Commands Observation: Able to respond to yes/no queries: Yes, Yes/No Confusion: No, Comprehends Conversational Speech: Yes - Language/Verbal Expression Able to Respond to Simple Queries: Yes: WNL Able to Communicate Wants and Needs: Yes: WNL Functional Communication Status: Yes: WNL - 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 Feels he can get up and walk.) Short Term Memory: Yes: WNL - Swallow Evaluation/Bedside Assessment Current Nutritional Intake: Regular, Thin Liquids Oral Secretions: Yes: WFL Dentition: Yes: Adequate Facial Symmetry at Rest: Symmetrical Facial Symmetry on Retraction: Symmetrical Facial Movement: Controlled Sensation: Normal Against Resistance Opening: Normal Against Resistance Closing: Normal Pucker Lips: Normal Smile: Normal Lingual Movement: Normal, Symmetric Lingual Speed of Movement: Reduced Lingual Movement Strgth Against Opposition: Reduced Lingual Movement Characteristics: Normal Velopharyngeal Movement: Normal Laryngeal Movement: Labored,delay initiation Rate of Intake: WFL Bolus Size: WFL Labial Seal: WFL Chewing: WFL Oral Prep Time: WFL A-P Transit: WFL Timing of Swallow: Delayed Coughing/Throat Clear: No (3 oz water. Silent aspiration is possible after extubation/dysphonia) Recommendations - Speech Evaluation, Impression/Plan Impression: Verbal, reduce articulatory rate, overtly tolerating diet order, but still aspiration risk with likely edematous vocal cords post extubation/ dysphonic - Disposition Discharge to: Rehabilitation Center, To be Determined - Dysphagia Impressions/Plan Swallowing Skills: Impaired Dysphagia Impressions: Mild Impairment *Silent aspiration: cannot be R/O at bedside Dysphagia Treatment Plan: 1/2 tsp. at a time, Elevate HOB during feed, OOB for meals, OOB for 1 h. after meals Recommendations: Other (monitor puolm status, cough, congestion. If so, nectar/ mbs Drug counseling)
[2019-05-28 11:09] LABS: ANISOCYTOSIS 1+; MACROCYTOSIS 0; PLATELET ESTIMATE NORMAL
--- NOTE | 2019-05-28 11:39 | PN ---
Physical Exam: SUBJECTIVE: Patient seen and examined on AM rounds. No acute overnight events. Precedex discontinued, high-flow transitioned to N, CXR unchanged from prior. Significant clinical improvement. Patient is conversant, engaging staff in conversations, trying to get out of bed, requesting food. 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 Bedside dysphasia screen passed. Sift diet breakfast tolerated well. OOB and PT ordered, patient moved to chair and back between rounds and attending rounds. OBJECTIVE: Vital Signs Period Temp Pulse Resp BP Sys/Christiansen Pulse Ox Last 24 Hr 98 F-98.7 F 86-108 12-21 142-166/84-102 95 GENERAL: The patient is awake, alert, and fully oriented, in no acute distress. HEAD: Normal with no signs of trauma. EYES: PERRL, extraocular movements intact, sclera anicteric, conjunctiva clear. No ptosis. ENT: Ears normal, nares patent, oropharynx clear without exudates, moist mucous membranes. NECK: Trachea midline, full range of motion, supple. LUNGS: Breath sounds equal, clear to auscultation bilaterally, no wheezes, no crackles, no accessory muscle use. HEART: Regular rate and rhythm, S1, S2 without murmur, rub or gallop. ABDOMEN: Soft, nontender, nondistended, normoactive bowel sounds, no guarding, no rebound. EXTREMITIES: 2+ pulses, warm, well-perfused, no edema. NEUROLOGICAL: Cranial nerves II through XII grossly intact. Normal speech, gait not observed. PSYCH: Normal mood, normal affect. SKIN: Warm, dry, normal turgor, no rashes or lesions noted Laboratory Results - last 24 hr 05/28/19 05/28/19 05:27 05:27 WBC 17.8 H RBC 4.55 Hgb 14.1 Hct 41.9 D MCV 92.1 MCH 31.0 MCHC 33.7 RDW 13.2 Plt Count 356 MPV 8.2 Absolute Neuts (auto) 15.7 H Neutrophils % 88.2 H Neutrophils % (Manual) 89.2 H Band Neutrophils % 1.0 Lymphocytes % 5.8 L D Lymphocytes % (Manual) 2.0 L D Monocytes % 5.9 Monocytes % (Manual) 4 Eosinophils % 0.0 Eosinophils % (Manual) 0.0 Basophils % 0.1 Basophils % (Manual) 0.0 Myelocytes % (Man) 1 Promyelocytes % (Man) 0 Blast Cells % (Manual) 0 Nucleated RBC % 0 Metamyelocytes 3 H D Hypochromia 0 Platelet Estimate Normal Polychromasia 1+ Poikilocytosis 0 Anisocytosis 1+ Microcytosis 1+ Macrocytosis 0 Sodium 138 Potassium 3.7 Chloride 105 Carbon Dioxide 24 Anion Gap 9 BUN 19.8 H Creatinine 0.6 Est GFR (CKD-EPI)AfAm 135.87 Est GFR (CKD-EPI)NonAf 117.23 Random Glucose 141 H Calcium 8.7 Phosphorus 3.1 Magnesium 2.3 Total Bilirubin 0.9 AST 66 H ALT 64 H Alkaline Phosphatase 60 Total Protein 6.3 L Albumin 3.6 Active Medications Generic Name Dose Route Start Last Admin Trade Name Freq PRN Reason Stop Dose Admin Acetaminophen 1,000 mg 05/24/19 21:39 05/25/19 20:45 Ofirmev Injection - IVPB 1,000 mg Q6H PRN Administration FEVER Albuterol Sulfate 1 amp 05/23/19 06:03 Ventolin 0.042trength) - NEB RQID PRN Dyspnea Albuterol/Ipratropium 1 amp 05/23/19 09:15 05/28/19 08:15 Duoneb - NEB 1 amp RQ4H HUSSEIN Administration Albuterol/Ipratropium 1 amp 05/24/19 22:45 Duoneb - NEB Q4H PRN SHORTNESS OF BREATH Chlorhexidine Gluconate 1 applic 05/23/19 22:00 05/27/19 22:30 Hibiclens For Decolonization - TP 1 applic HS HUSSEIN Administration Heparin Sodium (Porcine) 5,000 unit 05/23/19 14:00 05/28/19 05:58 Heparin - SQ 5,000 unit TID HUSSEIN Administration Hydralazine HCl 10 mg 05/28/19 02:03 05/28/19 03:15 Apresoline Injection - IVPUSH 10 mg Q6H PRN Administration HYPERTENSION Ceftriaxone Sodium 2 gm/ 100 mls @ 200 mls/hr 05/23/19 15:00 05/28/19 10:05 Dextrose IVPB 200 mls/hr DAILY HUSSEIN Administration Protocol Methylprednisolone Sodium Succinate 40 mg 05/28/19 18:00 Solu-Medrol - IVPUSH Q8H-IV HUSSEIN Metoprolol Tartrate 5 mg 05/25/19 18:27 05/28/19 05:12 Lopressor Injection - IVPUSH 5 mg Q4H PRN Administration TACHYCARDIA (HR > 120) Pantoprazole Sodium 40 mg 05/23/19 15:00 05/28/19 10:06 Protonix Iv IVPUSH 40 mg DAILY HUSSEIN Administration ASSESSMENT/PLAN: 49M PMH of Asthma (on Advair, Proair, and Singulair at home), HLD and Anxiety. Presented to [facility] 05/23 with worsening SOB despite Ventolin and Nebulizer. Was found to have O2 42%, received SoluMedrol 125mg and duonebs with no improvement , decision was made to intubate. Intubated 05/23, extubated 05/26. Now off pressors / sedation, marked improvement in MSE, stable for transfer to the floor. #Neurology - Alert and oriented x3 without focal deficits - Precedex D/Yanick - CT head performed 05/27: no masses, hemorrhage #Pulmonology - CXR 05/28: No acute pathology, unchanged from prior - Rt femoral arterial line placed 05/23 - Solumedrol decreased from 60 mg Q6 -> 40 mg Q8, Duonebs - s/p Terbutaline #ID - WBC 17.8, afebrile - Ceftriaxone 2gm, Azythromycin 500mg for suspected pneumonia started 05/23 as per ID - Sputum cx: Moraxella Catarrhalis, BCx pending - ID (Dr. Mott) on board #[facility] - denies any PMHx. or Family Hx. of any chronic medical conditions - Hx of HTN: Lopressor 5mg IV PRN for HTN, may use4 labetalol/hydralazine IV for BP - Cardiac monitoring #GI - Passed bedside dysphasia screen, speech and swallow - Breakfast, softs well tolerated, advancing to regular diet for lunch #Renal - Lopes discontinued - UA: Protein 1+ - UTox positive for Marijuana, cocaine, benzos #FEN - Fluids D/Yanick - Phos 3.9, mg 2.8 #Prophylaxis - Hep 5000 SQ TID - Protonix 40mg IV #Dispo - Stable for transfer to med/surg Visit type - Emergency Visit Emergency Visit: Yes ED Registration Date: 05/23/19 Care time: The patient presented to the Emergency Department on the above date and was hospitalized for further evaluation of their emergent condition. - New Patient This patient is new to me today: No - Critical Care Critical Care patient: Yes Total Critical Care Time (in minutes): 36 Critical Care Statement: The care of this patient involved high complexity decision making to prevent further life threatening deterioration of the patient 's condition and/or to evaluate & treat vital organ system(s) failure or risk of failure. ATTENDING PHYSICIAN STATEMENT I saw and evaluated the patient. I reviewed the resident's note and discussed the case with the resident. I agree with the resident's findings and plan as documented. SUBJECTIVE: OBJECTIVE: ASSESSMENT AND PLAN:
--- NOTE | 2019-05-28 11:43 | PN ---
Teaching Attending Note Name of Resident: Vadim Dawson ATTENDING PHYSICIAN STATEMENT I saw and evaluated the patient. I reviewed the resident's note and discussed the case with the resident. I agree with the resident's findings and plan as documented. SUBJECTIVE: Pt seen and examined in the ICU. Mental status significantly improved. Denies shortness of breath, cough or wheezing. OBJECTIVE: Vital Signs Period Temp Pulse Resp BP Sys/Christiansen Pulse Ox Last 24 Hr 98 F-98.7 F 86-108 12-21 142-166/84-102 95 Intake & Output 05/25/19 05/26/19 05/27/19 05/28/19 23:59 23:59 23:59 23:59 Intake Total 4768 7307.4 2270 50 Output Total 1200 3800 2650 700 Balance 3568 3507.4 -380 -650 Weight 75.75 kg 79.152 kg 80.603 kg 73.936 kg Gen: NAD at rest Heart: RRR Lung: decreased breath sounds at the bases Abd: soft, nontender Ext: no edema CBC, BMP 05/28/19 05:27 05/28/19 05:27 Active Medications Acetaminophen (Ofirmev Injection -) 1,000 mg IVPB Q6H PRN PRN Reason: FEVER Last Admin: 05/25/19 20:45 Dose: 1,000 mg Albuterol Sulfate (Ventolin 0.042trength) -) 1 amp NEB RQID PRN PRN Reason: Dyspnea Albuterol/Ipratropium (Duoneb -) 1 amp NEB RQ4H HUSSEIN Last Admin: 05/28/19 08:15 Dose: 1 amp Albuterol/Ipratropium (Duoneb -) 1 amp NEB Q4H PRN PRN Reason: SHORTNESS OF BREATH Chlorhexidine Gluconate (Hibiclens For Decolonization -) 1 applic TP HS HUSSEIN Last Admin: 05/27/19 22:30 Dose: 1 applic Heparin Sodium (Porcine) (Heparin -) 5,000 unit SQ TID HUSSEIN Last Admin: 05/28/19 05:58 Dose: 5,000 unit Hydralazine HCl (Apresoline Injection -) 10 mg IVPUSH Q6H PRN PRN Reason: HYPERTENSION Last Admin: 05/28/19 03:15 Dose: 10 mg Ceftriaxone Sodium 2 gm/ (Dextrose) 100 mls @ 200 mls/hr IVPB DAILY HUSSEIN; Protocol Last Admin: 05/28/19 10:05 Dose: 200 mls/hr Methylprednisolone Sodium Succinate (Solu-Medrol -) 40 mg IVPUSH Q8H-IV HUSSEIN Metoprolol Tartrate (Lopressor Injection -) 5 mg IVPUSH Q4H PRN PRN Reason: TACHYCARDIA (HR > 120) Last Admin: 05/28/19 05:12 Dose: 5 mg Pantoprazole Sodium (Protonix Iv) 40 mg IVPUSH DAILY HUSSEIN Last Admin: 05/28/19 10:06 Dose: 40 mg ASSESSMENT AND PLAN: Acute Bronchospasm/Status Asthmaticus Polysubstance Abuse r/o Pneumonia Anxiety Hyperlipidemia - taper medrol - inhaled bronchodilators standing and PRN - complete antibiotics - aspiration precautions - taper O2 to keep SpO2 >90% - rehab/PT - DVT/GI prophylaxis - can monitor on floor
--- NOTE | 2019-05-28 12:09 | PN ---
Progress Note, Physician History of Present Illness: REMAINS EXTUBATED AWAKE, ALERT ? MILDLY CONFUSED BUT IMPROVED BREATHING NON LABORED - Current Medication List Current Medications: Active Medications Acetaminophen (Ofirmev Injection -) 1,000 mg IVPB Q6H PRN PRN Reason: FEVER Last Admin: 05/25/19 20:45 Dose: 1,000 mg Albuterol Sulfate (Ventolin 0.042trength) -) 1 amp NEB RQID PRN PRN Reason: Dyspnea Albuterol/Ipratropium (Duoneb -) 1 amp NEB RQ4H HUSSEIN Last Admin: 05/28/19 08:15 Dose: 1 amp Albuterol/Ipratropium (Duoneb -) 1 amp NEB Q4H PRN PRN Reason: SHORTNESS OF BREATH Chlorhexidine Gluconate (Hibiclens For Decolonization -) 1 applic TP HS HUSSEIN Last Admin: 05/27/19 22:30 Dose: 1 applic Heparin Sodium (Porcine) (Heparin -) 5,000 unit SQ TID HUSSEIN Last Admin: 05/28/19 05:58 Dose: 5,000 unit Hydralazine HCl (Apresoline Injection -) 10 mg IVPUSH Q6H PRN PRN Reason: HYPERTENSION Last Admin: 05/28/19 03:15 Dose: 10 mg Ceftriaxone Sodium 2 gm/ (Dextrose) 100 mls @ 200 mls/hr IVPB DAILY [facility]; Protocol Last Admin: 05/28/19 10:05 Dose: 200 mls/hr Methylprednisolone Sodium Succinate (Solu-Medrol -) 40 mg IVPUSH Q8H-IV HUSSEIN Metoprolol Tartrate (Lopressor Injection -) 5 mg IVPUSH Q4H PRN PRN Reason: TACHYCARDIA (HR > 120) Last Admin: 05/28/19 05:12 Dose: 5 mg Pantoprazole Sodium (Protonix Iv) 40 mg IVPUSH DAILY [facility] Last Admin: 05/28/19 10:06 Dose: 40 mg - Objective Vital Signs: Vital Signs Temperature 98.7 F 05/28/19 06:00 Pulse Rate 94 H 05/28/19 08:00 Respiratory Rate 16 05/28/19 08:00 Blood Pressure 151/96 05/28/19 08:00 O2 Sat by Pulse Oximetry (%) 95 05/27/19 21:00 Constitutional: Yes: No Distress Eyes: Yes: Conjunctiva Clear Cardiovascular: Yes: Regular Rate and Rhythm Respiratory: Yes: Rhonchi Gastrointestinal: Yes: Normal Bowel Sounds, Soft. No: Tenderness Edema: No Labs: CBC, BMP 05/28/19 05:27 05/28/19 05:27 INR, PTT INR 1.03 (0.83-1.09) 05/24/19 05:35 Assessment/Plan ACUTE RESPIRATORY FAILURE S/P EXTUBATION ACUTE EXACERBATION ASTHMA R/O PNEUMONIA HX POLYSUBSTANCE USE D/C ANTIBIOTICS OBSERVE OFF
[2019-05-28] MEDS ORDERED: ALPRAZolam 0.25 MG TABLET PO PRN (13:48)
[2019-05-28] MEDS ORDERED: ACETAMINOPHEN 650 MG/20.3 ML ORAL SOLUTION (CUPS) PO PRN (15:03)
[2019-05-28] MEDS: DULoxetine HCL 30 MG CAPSULE.DR PO SCH (15:15)
[2019-05-28] MEDS: LORATADINE 10 MG TABLET PO SCH (15:16)
--- NOTE | 2019-05-28 15:56 | PN ---
Physical Exam: SUBJECTIVE: Patient seen and examined. he reports productive cough with yellowish/greenish sputum. He denies chest pain, shortness of breath, wheezing, fever, chills, abdominal pain, n/v. OBJECTIVE: Vital Signs Period Temp Pulse Resp BP Sys/Christiansen Pulse Ox Last 24 Hr 97.8 F-98.7 F 86-108 12-21 143-166/84-102 95-98 GENERAL: A&Ox3, sitting in chair HEAD: Normal with no signs of trauma. EYES: PERRL, bilateral subconjunctival hemorrhages inferiorly ENT: Ears normal, nares patent, moist mucous membranes. NECK: Trachea midline, full range of motion, supple. LUNGS: Clear to auscultation bilaterally, no wheezes. HEART: Regular rate and rhythm, no murmur. ABDOMEN: Soft, nontender, nondistended, normoactive bowel sounds EXTREMITIES: Warm, well-perfused, minimal edema in right hand, other extremities no edema NEUROLOGICAL: 4/5 strength in all extremities, slow speech PSYCH: Normal mood and affect. SKIN: Warm, dry, normal turgor, erythema near left arm IV site, not indurated Laboratory Results - last 24 hr 05/28/19 05/28/19 05:27 05:27 WBC 17.8 H RBC 4.55 Hgb 14.1 Hct 41.9 D MCV 92.1 MCH 31.0 MCHC 33.7 RDW 13.2 Plt Count 356 MPV 8.2 Absolute Neuts (auto) 15.7 H Neutrophils % 88.2 H Neutrophils % (Manual) 89.2 H Band Neutrophils % 1.0 Lymphocytes % 5.8 L D Lymphocytes % (Manual) 2.0 L D Monocytes % 5.9 Monocytes % (Manual) 4 Eosinophils % 0.0 Eosinophils % (Manual) 0.0 Basophils % 0.1 Basophils % (Manual) 0.0 Myelocytes % (Man) 1 Promyelocytes % (Man) 0 Blast Cells % (Manual) 0 Nucleated RBC % 0 Metamyelocytes 3 H D Hypochromia 0 Platelet Estimate Normal Polychromasia 1+ Poikilocytosis 0 Anisocytosis 1+ Microcytosis 1+ Macrocytosis 0 Sodium 138 Potassium 3.7 Chloride 105 Carbon Dioxide 24 Anion Gap 9 BUN 19.8 H Creatinine 0.6 Est GFR (CKD-EPI)AfAm 135.87 Est GFR (CKD-EPI)NonAf 117.23 Random Glucose 141 H Calcium 8.7 Phosphorus 3.1 Magnesium 2.3 Total Bilirubin 0.9 AST 66 H ALT 64 H Alkaline Phosphatase 60 Total Protein 6.3 L Albumin 3.6 Active Medications Generic Name Dose Route Start Last Admin Trade Name Freq PRN Reason Stop Dose Admin Acetaminophen 1,000 mg 05/28/19 15:03 Tylenol Oral Solution - PO Q6H PRN FEVER Albuterol Sulfate 1 amp 05/23/19 06:03 Ventolin 0.042trength) - NEB RQID PRN Dyspnea Albuterol/Ipratropium 1 amp 05/23/19 09:15 05/28/19 15:25 Duoneb - NEB 1 amp RQ4H HUSSEIN Administration Albuterol/Ipratropium 1 amp 05/24/19 22:45 Duoneb - NEB Q4H PRN SHORTNESS OF BREATH Alprazolam 1 mg 05/28/19 13:48 05/28/19 15:15 Xanax - PO 1 mg BID PRN Administration ANXIETY Atorvastatin Calcium 20 mg 05/28/19 22:00 Lipitor - PO HS HUSSEIN Chlorhexidine Gluconate 1 applic 05/23/19 22:00 05/27/19 22:30 Hibiclens For Decolonization - TP 1 applic HS HUSSEIN Administration Duloxetine HCl 60 mg 05/28/19 14:00 05/28/19 15:15 Cymbalta - PO 60 mg DAILY HUSSEIN Administration Heparin Sodium (Porcine) 5,000 unit 05/23/19 14:00 05/28/19 13:45 Heparin - SQ 5,000 unit TID HUSSEIN Administration Hydralazine HCl 10 mg 05/28/19 02:03 05/28/19 03:15 Apresoline Injection - IVPUSH 10 mg Q6H PRN Administration HYPERTENSION Loratadine 10 mg 05/28/19 13:48 05/28/19 15:16 Claritin - PO 10 mg DAILY HUSSEIN Administration Methylprednisolone Sodium Succinate 40 mg 05/28/19 18:00 Solu-Medrol - IVPUSH Q8H-IV HUSSEIN Metoprolol Tartrate 5 mg 05/25/19 18:27 05/28/19 05:12 Lopressor Injection - IVPUSH 5 mg Q4H PRN Administration TACHYCARDIA (HR > 120) Pantoprazole Sodium 40 mg 05/23/19 15:00 05/28/19 10:06 Protonix Iv IVPUSH 40 mg DAILY HUSSEIN Administration ASSESSMENT/PLAN: Mr. Fraga is a 49 y/o male with history of HLD, anxiety, and asthma who initially presented to [facility] due to shortness of breath. He was found to be in respiratory failure and was intubated and put on ventilator. #acute hypoxic hypercapneic respiratory failure, improved #asthma Head CT negative for hemorrhage or ischemia. CXR negative. sputum cx positive for moraxella. Blood cx negative. -solumedrol tapering -duoneb Q4H -zithromax 500mg- trial off abx -rocephin 2g- trial off abx -ID following -PT #tachycardia -PRN lopressor #HTN Elevated systolic pressures -hydralazine PRN HTN -f/u out pt #substance use disorder urine tox positive for cocaine, marijuana, and BZD at admission -pt counseled on lifestyle changes GI Ppx Protonix DVT Ppx heparin FEN monitor labs regular diet dispo transfer to med/surg floor Visit type - Emergency Visit Emergency Visit: Yes ED Registration Date: 05/23/19 Care time: The patient presented to the Emergency Department on the above date and was hospitalized for further evaluation of their emergent condition. - New Patient This patient is new to me today: No - Critical Care Critical Care patient: Yes Total Critical Care Time (in minutes): 35 Critical Care Statement: The care of this patient involved high complexity decision making to prevent further life threatening deterioration of the patient 's condition and/or to evaluate & treat vital organ system(s) failure or risk of failure. - Discharge Referral Referred to [facility] Med [facility] No ATTENDING PHYSICIAN STATEMENT I saw and evaluated the patient. I reviewed the resident's note and discussed the case with the resident. I agree with the resident's findings and plan as documented. SUBJECTIVE: OBJECTIVE: ASSESSMENT AND PLAN:
--- NOTE | 2019-05-28 16:10 | PN ---
Teaching Attending Note Name of Resident: Sandrine Roberts ATTENDING PHYSICIAN STATEMENT I saw and evaluated the patient. I reviewed the resident's note and discussed the case with the resident. I agree with the resident's findings and plan as documented. SUBJECTIVE: No fever or chills. feels much better . No SOB , occasional cough. yelllow sputum production . no CP . fatigue OBJECTIVE: NAD, awake, joking. subconjunctival bleed CV: RRR Lungs: CTAB Ext: NO edema or erythema on upper or lower ext Neuro : EOMI, round equal pupils, no facial droop. strength 5/5 in upper and lower extremities proximally and distally ASSESSMENT AND PLAN: 49 y/o man with h/o polysubstance abuse, asthma, anxiety, and other medical problems who presented with acute resp distress and developed resp failure and was intubated 1- Acute resp failure due to status asmaticus. s/p intubation 2- Asthma exacerbation 3- Poly substance abuse 4- Possible PNA Plan : - dc Abx . - cont breathing trratment - taper steroids - add Advair - PT eval - leukocytosis is probably due to steroids - DVT px : heparin sq - given one dose of losartan for elebvated BP. will monitor and if needed can start a standing dose Transfer to floor d/w patient and family
[2019-05-28] MEDS: LOSARTAN POTASSIUM 25 MG TABLET PO SCH (17:05)
[2019-05-28] MEDS ORDERED: methylPREDNISolone NA SUCC 40 MG/1 ML VIAL IVPUSH SCH (18:00)
[2019-05-28] MEDS ORDERED: ALBUTEROL SO4 0.042% IH SOL 1.25 MG/3 ML VIAL.NEB NEB PRN (19:56)
[2019-05-28] MEDS ORDERED: ALBUTEROL SO4 2.5/IPRATROPIUM 0.5 INH SOL 3 ML VIAL.NEB. NEB PRN (19:56)
[2019-05-28] MEDS ORDERED: CHLORHEXIDINE GLUCONATE 4% CLEANSER FOR DECOLONIZATION TP SCH (22:00)
[2019-05-28] MEDS ORDERED: ATORVASTATIN CA 20 MG TABLET (FP) PO SCH (22:00)
[2019-05-29] MEDS: ALBUTEROL SO4 2.5/IPRATROPIUM 0.5 INH SOL 3 ML VIAL.NEB. NEB SCH ×4 (00:45→12:00)
[2019-05-29] MEDS: FLUTICASONE/SALMETEROL 100 MCG/50 MCG DISKUS IH SCH ×2 (00:49→10:03)
[2019-05-29] MEDS: methylPREDNISolone NA SUCC 40 MG/1 ML VIAL IVPUSH SCH ×2 (03:13→09:37)
[2019-05-29] MEDS: HEPARIN NA (PORCINE) 5,000 UNITS/ML 1ML VIAL SQ SCH (06:56)
[2019-05-29 08:39] LABS: HEMATOCRIT 43.1 % (35.4-49); HEMOGLOBIN 14.4 GM/dL (11.7-16.9); MCH 31.1 pg (25.7-33.7); MCHC 33.4 g/dl (32.0-35.9); MEAN PLT VOLUME 7.5 fl (7.5-11.1); PLATELET COUNT 357 K/MM3 (134-434); RBC 4.63 M/mm3 (4.00-5.60); RDW 13.5 % (11.9-15.9); WHITE BLOOD COUNT 14.7 K/mm3 (4.0-10.0)
[2019-05-29] MEDS ORDERED: PT OWN MED DRAWER 7, Y5N ONE (08:54)
[2019-05-29 09:07] LABS: ALBUMIN 3.3 g/dl (3.4-5.0); BILIRUBIN,TOTAL 0.9 mg/dL (0.2-1); BLOOD UREA NITROGEN 20.8 mg/dL (7-18); CALCIUM 8.8 mg/dL (8.5-10.1); CREATININE 0.7 mg/dL (0.55-1.3); MAGNESIUM 2.3 mg/dL (1.8-2.4); POTASSIUM 3.9 mmol/L (3.5-5.1)
[2019-05-29] MEDS: LORATADINE 10 MG TABLET PO SCH (09:40)
[2019-05-29] MEDS: LOSARTAN POTASSIUM 25 MG TABLET PO SCH (09:40)
[2019-05-29] MEDS: DULoxetine HCL 30 MG CAPSULE.DR PO SCH (09:40)
[2019-05-29] MEDS ORDERED: PANTOPRAZOLE SODIUM 40 MG VIAL IVPUSH SCH (10:00)
--- NOTE | 2019-05-29 10:26 | PN ---
Progress Note, Physician History of Present Illness: PULMONARY ALERT,COMFORTABLE,-RESP DISTRESS - Current Medication List Current Medications: Active Medications Acetaminophen (Tylenol Oral Solution -) 1,000 mg PO Q6H PRN PRN Reason: FEVER Albuterol Sulfate (Ventolin 0.042trength) -) 1 amp NEB RQID PRN PRN Reason: Dyspnea Albuterol/Ipratropium (Duoneb -) 1 amp NEB Q4H PRN PRN Reason: SHORTNESS OF BREATH Albuterol/Ipratropium (Duoneb -) 1 amp NEB RQ4H [facility] Last Admin: 05/29/19 09:05 Dose: 1 amp Alprazolam (Xanax -) 1 mg PO BID PRN PRN Reason: ANXIETY Last Admin: 05/28/19 15:15 Dose: 1 mg Atorvastatin Calcium (Lipitor -) 20 mg PO HS [facility] Last Admin: 05/28/19 23:34 Dose: 20 mg Duloxetine HCl (Cymbalta -) 60 mg PO DAILY [facility] Last Admin: 05/29/19 09:40 Dose: 60 mg Heparin Sodium (Porcine) (Heparin -) 5,000 unit SQ TID [facility] Last Admin: 05/29/19 06:56 Dose: 5,000 unit Loratadine (Claritin -) 10 mg PO DAILY [facility] Last Admin: 05/29/19 09:40 Dose: 10 mg Losartan Potassium (Cozaar -) 25 mg PO DAILY [facility] Last Admin: 05/29/19 09:40 Dose: 25 mg Methylprednisolone Sodium Succinate (Solu-Medrol -) 40 mg IVPUSH Q8H-IV [facility] Last Admin: 05/29/19 09:37 Dose: 40 mg Pantoprazole Sodium (Protonix Iv) 40 mg IVPUSH DAILY [facility] Last Admin: 05/29/19 10:04 Dose: 40 mg Fluticasone/Salmeterol (Advair 100mcg/50mcg -) 1 puff IH BID [facility] Last Admin: 05/29/19 10:03 Dose: 1 puff - Objective Vital Signs: Vital Signs Temperature 98.5 F 05/29/19 06:00 Pulse Rate 83 05/29/19 06:00 Respiratory Rate 20 05/29/19 06:00 Blood Pressure 149/78 05/29/19 06:00 O2 Sat by Pulse Oximetry (%) 98 05/28/19 21:00 Constitutional: Yes: Well Nourished, Calm Eyes: Yes: WNL HENT: Yes: WNL Neck: Yes: WNL Cardiovascular: Yes: Regular Rate and Rhythm, S1, S2 Respiratory: Yes: CTA Bilaterally Gastrointestinal: Yes: Normal Bowel Sounds, Soft Extremities: Yes: WNL Edema: No Labs: CBC, BMP 05/29/19 07:16 05/29/19 07:16 INR, PTT INR 1.03 (0.83-1.09) 05/24/19 05:35 Problem List - Problems (1) Status asthmaticus Code(s): J45.902 - UNSPECIFIED ASTHMA WITH STATUS ASTHMATICUS (2) Respiratory failure Code(s): J96.90 - RESPIRATORY FAILURE, UNSP, UNSP W HYPOXIA OR HYPERCAPNIA (3) Polysubstance abuse Code(s): F19.10 - OTHER PSYCHOACTIVE SUBSTANCE ABUSE, UNCOMPLICATED Assessment/Plan ASSESSMENT AND PLAN: Acute Bronchospasm/Status Asthmaticus improved Polysubstance Abuse r/o Pneumonia Anxiety Hyperlipidemia - taper medrol - inhaled bronchodilators standing and PRN - aspiration precautions - taper O2 to keep SpO2 >90% - rehab/PT - DVT/GI prophylaxis DR MELISSA
--- NOTE | 2019-05-29 12:31 | PN ---
Teaching Attending Note Name of Resident: Audrey Salas ATTENDING PHYSICIAN STATEMENT I saw and evaluated the patient. I reviewed the resident's note and discussed the case with the resident. I agree with the resident's findings and plan as documented. SUBJECTIVE: no pain, no fever or chills. No KOROMA. no cough. feels back to normal . he wants to go home OBJECTIVE: NAD, awake, subconjunctival bleed improved CV: RRR Lungs: CTAB Ext: NO edema or erythema on upper or lower ext ASSESSMENT AND PLAN: 49 y/o man with h/o polysubstance abuse, asthma, anxiety, and other medical problems who presented with acute resp distress and developed resp failure and was intubated 1- Acute resp failure due to status asmaticus. s/p intubation 2- Asthma exacerbation 3- Poly substance abuse 4- Possible PNA Plan : -dc on prednisone taper - cont Advair - PT eval - leukocytosis is probably due to steroids - cont albuterol inhaler dc home .
[2019-05-29 12:36] VITALS: BP 126/76; PULSE 97; TEMP 98.3
--- NOTE | 2019-05-29 17:02 | DS ---
Physical Exam: SUBJECTIVE: Patient seen and examined. He denies chest pain, shortness of breath , wheezing, fever, or chills. OBJECTIVE: Vital Signs Period Temp Pulse Resp BP Sys/Christiansen Pulse Ox Last 24 Hr 97.4 F-98.8 F 79-103 16-20 126-149/76-90 95-98 PHYSICAL EXAM GENERAL: A&Ox3 HEAD: Normal with no signs of trauma. EYES: PERRL, bilateral subconjunctival hemorrhages inferiorly ENT: Ears normal, nares patent, moist mucous membranes. NECK: Trachea midline, full range of motion, supple. LUNGS: Clear to auscultation bilaterally, no wheezes. HEART: Regular rate and rhythm, no murmur. ABDOMEN: Soft, nontender, nondistended, normoactive bowel sounds EXTREMITIES: Warm, well-perfused, minimal edema in right hand, other extremities no edema NEUROLOGICAL: CN 2-12 grossly intact. Normal speech. PSYCH: Normal mood and affect. SKIN: Warm, dry, normal turgor, erythema near left arm IV site, not indurated LABS Laboratory Results - last 24 hr 05/29/19 05/29/19 07:16 07:16 WBC 14.7 H RBC 4.63 Hgb 14.4 Hct 43.1 MCV 93.0 MCH 31.1 MCHC 33.4 RDW 13.5 Plt Count 357 MPV 7.5 Sodium 140 Potassium 3.9 Chloride 106 Carbon Dioxide 25 Anion Gap 9 BUN 20.8 H Creatinine 0.7 Est GFR (CKD-EPI)AfAm 127.53 Est GFR (CKD-EPI)NonAf 110.04 Random Glucose 138 H Calcium 8.8 Phosphorus 4.0 Magnesium 2.3 Total Bilirubin 0.9 AST 36 ALT 71 H Alkaline Phosphatase 58 Total Protein 6.0 L Albumin 3.3 L HOSPITAL COURSE: Mr. Fraga is a 49 y/o male with history of HLD, anxiety, asthma, and polysubstance use who initially presented to [facility] due to shortness of breath. He was found to be in respiratory failure and was intubated and put on ventilator. He was transferred to [facility] for ICU care. He was given IV solu-medrol and standing duo-nebs for asthma exacerbation as well as empiric zithromax and ceftriaxone for possible aspiration PNA (sputum cx moraxella positive). Pt was extubated and quickly improved. He was discharged on prednisone taper. Pt was hypertensive during visit. He was instructed to monitor his blood pressure at home and follow up with primary care. He was offered VNS services but declined at the time of discharge. He was counseled on lifestyle changes for polysubstance use. Date of Admission:05/23/19 Date of Discharge: 05/29/19 Minutes to complete discharge: 35 Discharge Summary Problems reviewed: Yes Reason For Visit: RESPIRATORY FAILURE Condition: Improved - Instructions Diet, Activity, Other Instructions: YOUR VISIT: You were admitted to the hospital because you were having difficulty breathing and needed a ventilator to assist you. You were also given steroids and antibiotics. Your breathing is better, and you are stable to go home. MEDICATIONS: Continue your home medications as directed. START prednisone once a day for 12 days 40mg (05/30, 05/31, 06/01) 30mg (06/02, 06/03, 06/04) 20mg (06/05, 06/06, 06/07) 10mg (06/08, 06/09, 06/10) then stop Do not stop prednisone abruptly on your own. this can be dangerous FOLLOW UP: Dr. Echevarria, primary care, within a week of discharge. You may need labs to check your kidney function following starting the losartan. Dr. Fox, pulmonology, within a month of discharge. OTHER INSTRUCTIONS: 1. Return to the emergency room or call 911 if you experience difficulty breathing, chest pain, changes in mental status, or headache and dizziness that does not go away. 2. Monitor your blood pressure daily and keep a log. Bring it to your primary care appointment. 3. Do not take illegal substances. This could cause another severe asthma attack. please check your blood pressure daily. we sent a cuff prescription to your pharmacy . take log to your doctor Referrals: Shadi Echevarria MD [Staff Physician] - 1 Week Bandar Fox MD, MD [Staff Physician] - 1 Month Disposition: HOME - Home Medications Comprehensive Discharge Medication List: Ambulatory Orders Duloxetine HCl [Cymbalta -] 60 mg PO DAILY 05/23/19 Fluticasone/Salmeterol [Advair 250-50 Diskus] 1 inh PO BID 05/23/19 Montelukast Na [Singulair -] 10 mg PO HS 05/23/19 Simvastatin 40 mg PO DAILY 05/23/19 Albuterol Sulfate Inhaler - [Ventolin HFA Inhaler -] 1 - 2 inh PO Q4H PRN #1 inhaler 05/29/19 Medical Supply, Miscellaneous [Blood Pressure Cuff] 1 each MC DAILY #1 each Prednisone See Taper PO DAILY #30 tablet 05/29/19 This patient is new to me today: No Emergency Visit: Yes ED Registration Date: 05/23/19 Care time: The patient presented to the Emergency Department on the above date and was hospitalized for further evaluation of their emergent condition. Critical Care patient: No - Discharge Referral Referred to [facility] Med P.C.: No ATTENDING PHYSICIAN STATEMENT I saw and evaluated the patient. I reviewed the resident's note and discussed the case with the resident. I agree with the resident's findings and plan as documented. SUBJECTIVE: OBJECTIVE: ASSESSMENT AND PLAN:
== END 2019-05-29 13:36 | disposition home or self-care (01) | DRG 208 ==
LOC: FER 02:05 → JICU 04:45 → J5S 05-28 18:32
PROVIDERS: ADMIT Internal Medicine; ATTEND Internal Medicine
PROC: 5A1945Z Respiratory Ventilation, 24-96 Consecutive Hours (ICD-10-PCS; principal; 2019-05-23)
PROC: 0BH17EZ Insertion of Endotracheal Airway into Trachea, Via Natural or Artificial Opening (ICD-10-PCS; 2019-05-23)
PROC: 03HY32Z Insertion of Monitoring Device into Upper Artery, Percutaneous Approach (ICD-10-PCS; 2019-05-23)
PROC: 4A133B1 Monitoring of Arterial Pressure, Peripheral, Percutaneous Approach (ICD-10-PCS; 2019-05-23)
DX: J96.01 Acute respiratory failure with hypoxia (principal); J18.9 Pneumonia, unspecified organism; J45.902 Unspecified asthma with status asthmaticus; E78.5 Hyperlipidemia, unspecified; F41.9 Anxiety disorder, unspecified; R00.0 Tachycardia, unspecified; F14.10 Cocaine abuse, uncomplicated; F12.10 Cannabis abuse, uncomplicated; D72.829 Elevated white blood cell count, unspecified
CPT/HCPCS: 31500; 36415; 36600; 70450-TC; 71045-TC-FY; 80048; 80053; 80307; 81003; 82375; 82550; 82553; 82803; 82962; 83050; 83605; 83735; 84100; 84484; 85025; 85027; 85610; 85730; 87040; 87070; 87077; 87086; 87205; 87804; 87807; 87899; 93005; 93306-TC; 93970-TC; 94002; 94640; 97116-GP; 97161-GP; 99285-25; J0131; J1644; J7030